=== PATIENT | female | born 1995 | race Caucasian/White ===

== ENCOUNTER 2024-01-04 19:42 | Inpatient (IN) | payer OTHER, SELFPAY ==
--- NOTE | ~2024-01-04 | CT_ITS ---
EXAMINATION: CT head/brain wo IV con CLINICAL INFORMATION: Reason for Exam ?seizure COMPARISON: None. TECHNIQUE: Contiguous axial imaging was performed from the skull base to vertex without intravenous contrast. Sagittal and coronal reformatted images were obtained. This CT examination was performed using dose optimization techniques as appropriate, variously including the following: * Automated exposure control * Adjustment of mA and/or kV according to patient size (this includes techniques or standardized protocols for targeted exams where dose is matched to indication/reason for exam; i.e. extremities or head) Use of iterative reconstruction technique DLP: 585 mGy-cm FINDINGS: No acute osseous or soft tissue abnormality. Right sided craniotomy changes. The mastoid air cells and visualized portions of the paranasal sinuses are well aerated. There is no evidence of acute intracranial hemorrhage or territorial infarction. No abnormal mass effect or midline shift is seen. Florentino to white matter differentiation is well preserved. No extra-axial fluid collections are identified. No hydrocephalus. No significant volume loss. There is no abnormal attenuation within the brain parenchyma. CT/CT head/brain wo IV con IMPRESSION: No acute intracranial abnormality including hemorrhage, mass effect, hydrocephalus, or acute territorial edematous infarction.
--- NOTE | ~2024-01-04 | XR_ITS ---
EXAMINATION: XR CHEST CLINICAL INFORMATION: Seizure COMPARISON: None available. TECHNIQUE: Frontal view of the chest was obtained. FINDINGS: No significant abnormality is noted involving the heart, lungs, mediastinum, bony thorax or soft tissues. Electronic device projecting over the left hemithorax XR/XR chest 1V IMPRESSION: No radiographic evidence of acute cardiopulmonary disease.
--- NOTE | ~2024-01-04 | CT_ITS ---
EXAMINATION: CT head/brain wo IV con CLINICAL INFORMATION: Reason for Exam seizures COMPARISON: CT head without contrast 01/04/2024 TECHNIQUE: Contiguous axial imaging was performed from the skull base to vertex without intravenous contrast. Sagittal and coronal reformatted images were obtained. This CT examination was performed using dose optimization techniques as appropriate, variously including the following: * Automated exposure control * Adjustment of mA and/or kV according to patient size (this includes techniques or standardized protocols for targeted exams where dose is matched to indication/reason for exam; i.e. extremities or head) Use of iterative reconstruction technique DLP: 759.61 mGy-cm FINDINGS: No acute osseous or soft tissue abnormality. Postsurgical changes from right sided craniotomy. The mastoid air cells and visualized portions of the paranasal sinuses are well aerated. There is no evidence of acute intracranial hemorrhage or territorial infarction. No abnormal mass effect or midline shift is seen. Florentino to white matter differentiation is well preserved. No extra-axial fluid collections are identified. No hydrocephalus. No significant volume loss. There is no abnormal attenuation within the brain parenchyma. CT/CT head/brain wo IV con IMPRESSION: No acute intracranial abnormality including hemorrhage, mass effect, hydrocephalus, or acute territorial edematous infarction.
--- NOTE | ~2024-01-04 | XR_ITS ---
EXAMINATION: XR CHEST CLINICAL INFORMATION: Endotracheal tube placement. COMPARISON: Chest radiograph 01/04/2024. TECHNIQUE: Frontal view of the chest was obtained. FINDINGS: The endotracheal tube terminates at 4.3 cm above the sai. Normal heart size. No focal consolidation, pleural effusion or pneumothorax. No acute osseous findings. Visualized upper abdomen is within normal limits. Redemonstration of a neurostimulator device projecting over the left axillary region with leads coursing into the soft tissues of the left neck terminating outside of the field of view. XR/XR chest 1V IMPRESSION: 1. The endotracheal tube terminates at 4.3 cm above the sai. 2. No focal consolidation, pleural effusion or pneumothorax.
--- NOTE | 2024-01-04 20:07 | ED.SEIZURE ---
HPI - Seizure General Chief Complaint: Seizure Stated Complaint: sz lasting 30 mins.1mg ativan given, 2nd sz 35mins Time Seen by Provider: 01/04/24 20:05 Source: EMS Mode of arrival: EMS Limitations: altered mental status History of Present Illness HPI Narrative: 28-year-old female history of cerebral palsy with anoxic brain injury with dense left hemiplegia, bipolar disorder, cystic fibrosis, dystonia, gastrotomy, gastroparesis, personality disorder, opiate dependence, PTSD, conversion disorder with seizures or convulsions, epilepsy, systemic lupus erythematosus, who was sent to the emergency department from her nursing facility, [facility] for on and off seizures since yesterday, lasting 30 minutes each. The patient had a witnessed seizure by the paramedics and was treated with Versed 4 mg IM. Initially when she got to the emergency department she was able to give a history to the nurses but then had a tonic clonic seizure lasting approximately 15 minutes, she was postictal and then had another tonic-clonic seizure that lasted approximately 10 minutes. During the seizures she was initially treated with Versed 4 mg IM and then Versed 4 mg IV. Patient was also loaded with Keppra 1000 mg IV. The patient eventually came back to her baseline was able to tell me that she was hospitalized at [facility] for several weeks. She states that she had status epilepticus and was intubated . She states that she was eventually started on Vimpat and Keppra. She states however she was then told that she did not need these medications and they were stopped your antiepileptic medications. The patient currently complaining of nausea and body pain. She states that this is typical after she has a seizure and that she often gets morphine and promethazine for these symptoms. Related Data Allergies Allergy/AdvReac Type Severity Reaction Status Date / Time aripiprazole Allergy Unknown Unknown Verified 08/24/23 08:56 bee venom protein (honey bee) Allergy Unknown Anaphylaxis Verified 01/04/24 20:00 latex Allergy Unknown Hives Verified 01/04/24 20:00 shellfish derived Allergy Unknown Anaphylaxis Verified 01/04/24 20:00 trimethoprim Allergy Unknown Unknown Verified 08/24/23 08:56 banana Allergy Anaphylaxis Verified 01/04/24 20:00 Sulfa (Sulfonamide Allergy Unknown Verified 01/04/24 20:00 Antibiotics) Review of Systems Review of Systems: Yes all other systems are reviewed and are negative PMFSH Past Medical History Medical History (Updated 01/04/24 @ 22:35 by Reji Dallas MD) Cystic fibrosis SVT (supraventricular tachycardia) Atrial fibrillation POTS (postural orthostatic tachycardia syndrome) Jackie-Danlos syndrome Anemia Lupus Refractory epilepsy Diabetic gastroparesis Physical Exam Vital Signs: Vital Signs: Last Vital Signs Temp 98.4 F 01/04/24 20:13 Pulse 92 01/04/24 20:13 Resp 14 01/04/24 20:13 BP 111/64 01/04/24 20:13 Pulse Ox 94 01/04/24 20:13 O2 Del Method Nasal Cannula 01/04/24 20:13 Oxygen Flow Rate 2 01/04/24 20:13 BMI result Body Mass Index 26.6 Vital signs were normal Exam: After postictal period ended General: Awake, alert answers questions appropriately Head: Normocephalic, atraumatic EENT: Patient's left pupil is 3 mm reactive to light. Right pupil is 3 mm and nonreactive to light, extraocular muscles are intact, mouth revealed moist membranes with no erythema or exudate Neck: Supple, no adenopathy Lung: breath sounds symmetric, no wheezing, rales or rhonchi Chest: symmetric movement, nontender Heart: regular rate and rhythm, normal S1, S2 no murmurs or rubs Abdomen: soft, non-tender, nondistended, normal bowel sounds, G-tube Extremities: Patient has left-sided hemiplegia with contraction of her left lower extremity and her left upper extremity and hand. Neuro: Awake, alert, oriented, normal speech, cranial nerves intact except right pupil was nonreactive and blind, left hemiplegia, moves right normally Psych: Pleasant, cooperative Medications Administered Discontinued Medications Generic Name Dose Route Start Last Admin Trade Name Freq PRN Reason Stop Dose Admin Levetiracetam 1,000 mg in 100 mls @ 400 mls/hr 01/04/24 20:25 01/04/24 20:55 Keppra IV 01/04/24 20:39 Infused ONCE ONE Infusion Midazolam HCl 4 mg 01/04/24 20:06 01/04/24 20:11 Midazolam Hcl/Pf 2 Mg/2 Ml Vial IM 01/04/24 20:07 4 mg ONCE ONE Administration Midazolam HCl 4 mg 01/04/24 20:21 01/04/24 20:24 Midazolam Hcl/Pf 2 Mg/2 Ml Vial IVPUSH 01/04/24 20:22 4 mg ONCE ONE Administration Medical Decision Making Medical Decision Making [facility] Narrative: 28-year-old female history of cerebral palsy with anoxic brain injury with dense left hemiplegia, bipolar disorder, cystic fibrosis, dystonia, gastrotomy, gastroparesis, personality disorder, opiate dependence, PTSD, conversion disorder with seizures or convulsions, epilepsy, systemic lupus erythematosus, who was sent to the emergency department from her nursing facility, [facility] for on and off seizures since yesterday, lasting 30 minutes each. She had a witnessed seizure by the paramedics and was treated with Versed 4 mg IM. Initially when she got to the emergency department she was able to give a history to the nurses but then had a tonic clonic seizure lasting approximately 15 minutes, she was postictal and then had another tonic-clonic seizure that lasted approximately 10 minutes. During the seizures she was initially treated with Versed 4 mg IM and then Versed 4 mg IV. Patient was also loaded with Keppra 1000 mg IV. Exam was consistent with her hemiplegia otherwise unremarkable pain. Differential diagnosis: Tonic clonic seizure, status epilepticus, electrolyte abnormality, anemia 22:24 My interpretation patient's laboratory evaluation is as follows: WBC low 3400, anemia with an H&H of 12.5 and 35.6. Lactic acid elevated 2.2 secondary to seizures. AST and ALT elevated 32 and 53. CK elevated 149-secondary to seizure. COVID-19, RSV and influenza negative. Chest x-ray revealed no acute abnormalities, patient has vagus nerve stimulator left chest. Given her [id number] seizures that lasted a significant amount of time, I do not think that the patient can be discharged back to her care facility. I did discuss patient's presentation with the covering hospitalist, Dr. Eastman the patient will be admitted for further manage Admission/Observation Consideration of admission/observation: Escalation of care including admission/observation considered Consult Healthcare Provider Management of the patient was discussed with: Hospitalist Lab Data [facility] Lab Attestation statement: I reviewed the patient's lab results. 01/04/24 20:24 01/04/24 20:24 Labs: Lab Results 01/04/24 01/04/24 Range/Units 20:24 20:40 WBC 3.4 L (4.8-10.8) X10*3/uL RBC 4.07 L (4.20-5.50) X10*6/uL Hgb 12.5 (12.0-16.0) g/dl Hct 35.6 L (37.0-47.0) % MCV 87.5 (80.0-98.0) fL MCH 30.7 (27.0-33.0) pg MCHC 35.1 H (31.0-35.0) g/dl RDW 11.9 (11.0-16.0) % Plt Count 197 (160-400) X10*3/uL MPV 8.4 L (9.4-12.3) fL Immature Gran % (Auto) 0.0 (0.0-0.4) % Neut % (Auto) 55.3 (45-73) % Lymph % (Auto) 29.4 (20-40) % [place] % (Auto) 12.6 H (2-11) % Eos % (Auto) 2.4 (0-4) % Baso % (Auto) 0.3 (0-2) % Lymph # (Auto) 1.0 L (1.2-4.9) X10*3/uL [place] # (Auto) 0.4 (0.1-1.2) X10*3/uL Eos # (Auto) 0.1 (0.0-0.4) X10*3/uL Baso # (Auto) 0.0 (0.0-0.2) X10*3/uL Abs Immat Gran (auto) 0.00 (0.00-0.03) X10*3/uL Absolute Neuts (auto) 1.9 L (2.0-8.3) x10*3/uL Absolute Nucleated RBC 0.000 (0.0-0.012) X10*3/uL Nucleated RBC % (auto) 0.0 (0.0-0.2) /100WBC Hold Purple Top SEE NOTE APTT 30.5 (26.0-36.8) SEC Sodium 143 (135-145) mmol/L Potassium 4.2 (3.3-5.1) mmol/L Chloride 107 (96-108) mmol/L Carbon Dioxide 25 (22-29) mmol/L Anion Gap 15 (12-20) BUN 13 (9-16) mg/dL Creatinine 0.67 (0.5-1.4) mg/dL Estim Creat Clear Calc 122.3 Estimated GFR > 60 Random Glucose 92 (60-115) mg/dL Lactic Acid 2.2 H* (0.5-2.0) mmol/L Calcium 10.4 H (8.4-10.2) mg/dL Total Bilirubin 0.7 (0.0-1.0) mg/dL AST 32 H (5-31) U/L ALT 53 H (0-31) U/L Alkaline Phosphatase 109 (39-117) U/L Total Creatine Kinase 149 H (26-140) U/L Total Protein 7.8 (6.5-8.0) g/dL Albumin 4.4 (3.5-5.0) g/dL Lipase 28 (8-78) U/L Influenza Type A (PCR) NEGATIVE (Negative) Influenza Type B (PCR) NEGATIVE (Negative) RSV RNA Qual (PCR) NEGATIVE (Negative) SARS-CoV-2 RNA (RT-PCR) NEGATIVE (Negative) Radiology Impression Discussion of test interpretation with radiology: I have reviewed the radiologist's reading. Radiologist Impression: XR chest 1V IMPRESSION: No radiographic evidence of acute cardiopulmonary disease. Dictated By: Noni Orellana MD External Record Review External record reviewed: Outpatient record and Other ([facility] discharge note 01/03/2024) Procedures EJ/Peripheral Line Neck R: Time Out Performed: No Skin Cleansed in Sterile Fashion: Yes Size (gauge): 20 IV Secured and Dressing Applied: Yes Patient Tolerated Procedure: well Critical Care Time Critical Care Time Critical Care Time: Yes Total Critical Care Time: 45 Attestation: Critical Care: The patient was critically ill with a high probability of imminent or life threatening deterioration. I spent greater than 30 minutes of discontinuous time evaluating the patient,delivering critical care at the bedside, discussing and evaluating pertinent data with consultants. Critical care time does not include time spent performing separately billable procedures or teaching. Total time spent performing critical care was 45 minutes. Discharge Plan Discharge Clinical Impression: Epileptic seizure, Intractable seizure disorder
[2024-01-04] MEDS: Midazolam HCl/PF 2 MG/2 ML VIAL 4 MG IM (20:11)
[2024-01-04 20:13] VITALS: BP 111/64; BP 98/60; PULSE 83; PULSE 92; RESP 14; TEMP 36.9; O2SAT 94; O2SAT 99; BMI 26.6
[2024-01-04] MEDS: Midazolam HCl/PF 2 MG/2 ML VIAL 4 MG IVPUSH (20:24)
--- NOTE | 2024-01-04 20:25 | PC.NURSE ---
Pt A&O to self, awake, able to verbalize full name. Last seizure was on EMS arrival, given 4 mg of versed IM. Pt is on 2L via NC at baseline. Pt reports having aura (metallic taste). Pt not answering any questions, arm jerking movements, provider made aware. New orders given per JAN. Pt difficult stick. 20G EJ to R side placed by Dr. Dallas.
[2024-01-04 20:34] LABS: MANUAL DIFF FLAG NO
[2024-01-04 20:35] LABS: Basophils Percent Auto 0.3 % (0-2); Eosinophils Absolute Auto 0.1 X10*3/uL (0.0-0.4); Eosinophils Percent Auto 2.4 % (0-4); Hematocrit 35.6 % (37.0-47.0); Hemoglobin 12.5 g/dl (12.0-16.0); Lymphocytes Percent Auto 29.4 % (20-40); Mean Corpuscular HGB Conc 35.1 g/dl (31.0-35.0); Mean Corpuscular Hemoglobin 30.7 pg (27.0-33.0); Mean Corpuscular Volume 87.5 fL (80.0-98.0); Mean Platelet Volume 8.4 fL (9.4-12.3); Monocytes Absolute Auto 0.4 X10*3/uL (0.1-1.2); Monocytes Percent Auto 12.6 % (2-11); Neutrophils Absolute Auto 1.9 x10*3/uL (2.0-8.3); Neutrophils Percent Auto 55.3 % (45-73); Platelet Count 197 X10*3/uL (160-400); Red Blood Count 4.07 X10*6/uL (4.20-5.50); Red Cell Distribution Width 11.9 % (11.0-16.0); White Blood Count 3.4 X10*3/uL (4.8-10.8)
[2024-01-04] MEDS: levETIRAcetam in NaCl (iso-os) 1,000 MG/100 ML PIGGYBACK 400 MG IV (20:37)
[2024-01-04 20:43] LABS: Partial Thromboplastin Time 30.5 SEC (26.0-36.8)
--- NOTE | 2024-01-04 20:46 | MHC.EDTECH ---
This Tech assumed care of this pt upon arrival. seizure pads placed on stretcher and pt changed into a hospital gown and placed on a air sampling and monitoring.
[2024-01-04 20:49] LABS: Alanine Aminotransferase 53 U/L (0-31); Albumin Level 4.4 g/dL (3.5-5.0); Alkaline Phosphatase 109 U/L (39-117); Anion Gap 15 (12-20); Aspartate Amino Transferase 32 U/L (5-31); Bilirubin Total 0.7 mg/dL (0.0-1.0); Blood Urea Nitrogen 13 mg/dL (9-16); Calcium 10.4 mg/dL (8.4-10.2); Carbon Dioxide 25 mmol/L (22-29); Chloride 107 mmol/L (96-108); Creatinine Clr Calc Pharmacy 122.3; Estimated Glomerular Filt Rate > 60; Glucose Random 92 mg/dL (60-115); Lipase 28 U/L (8-78); Potassium 4.2 mmol/L (3.3-5.1); Sodium 143 mmol/L (135-145); Total Protein 7.8 g/dL (6.5-8.0)
[2024-01-04 20:52] LABS: Lactic Acid 2.2 mmol/L (0.5-2.0)
[2024-01-04 21:21] LABS: Influenza A PCR NEGATIVE (Negative); Influenza B PCR NEGATIVE (Negative); Resp Syncy Virus RNA Qual PCR NEGATIVE (Negative); SARS COV2 PCR INHOUSE NEGATIVE (Negative)
[2024-01-04 22:31] LABS: Reflex Lactate? Lactic Acid Added
[2024-01-04 22:38] VITALS: BP 103/55; PULSE 83; RESP 19; TEMP 36.7; O2SAT 100
--- NOTE | 2024-01-04 22:39 | PHA.MEDREC ---
Pharmacy Consult ? Medication Reconciliation Pharmacy has completed the medication reconciliation. Patient from [facility] with med list. Manuela Morillo, JohnyD
[2024-01-04 22:53] VITALS: RESP 14
[2024-01-04] MEDS: Morphine Sulfate 4 MG/ML CARTRIDGE IVPUSH (22:53)
[2024-01-04 23:15] LABS: ~Lactic Acid-LAB USE ONLY 0.6 mmol/L (0.5-2.0)
--- NOTE | 2024-01-05 | EEG_ITS ---
FINDINGS: The waking background activity consists of a [id number] voltage 8 hertz posterior alpha frequency intermixed anteriorly with low voltage fast frequencies. Drowsiness was characterized with diffuse theta slowing. During sleep, symmetrical frontocentral sleep spindles developed over both hemispheres. Photic stimulation is without activation. Hyperventilation was omitted. No focal, lateralizing, or paroxysmal discharges were seen. IMPRESSION: This awake and sleep EEG is within normal limits. MD DAWNA Fraser/SEUN / [id number]
--- NOTE | 2024-01-05 00:38 | P.HPHOSP_ITS ---
History of Present Illness Date of Service: 01/05/24 Chief Complaint: seizure This is a 28-year-old female with pertinent history of anoxic brain injury with left-sided hemiplegia, mood disorder, dystonia, urinary incontinence, gastroparesis status post G-tube, opiate dependence, seizure disorder, SLE who was sent from nursing facility for evaluation of seizures. As per the facility, patient has been having on and off seizures lasting 30 minutes that started 1 day prior to presentation. Patient had a witnessed seizure by paramedics and was treated with IM Versed. In the ER, patient was initially postictal but had 2 episodes of seizure witnessed by ER nurse and ER physician. First episode lasted for about 15 minutes and the 2nd episode lasted for 10 minutes. She was given IM Versed 4 mg x 2 and loaded with IV Keppra. Patient does not know why she is here. Does have a small tongue bite to the lateral aspect of the tongue. No fall. Patient states she does have a history of seizure and was hospitalized and intubated at [facility] for several weeks. Patient states at some point she was on Vimpat and Keppra but Vimpat was discontinued. No fever, chills, chest discomfort, palpitations, shortness of breath, abdominal pain. She is bed-bound and uses a wheelchair to ambulate. Review of Systems 2 Constitutional: Constitutional: Reports no additional constitutional complaints Cardiovascular: Cardiovascular: Reports no additional cardiovascular complaints Respiratory: Respiratory: Reports no additional respiratory complaints Gastrointestinal: Gastrointestinal: Reports no additional gastrointestinal complaints Genitourinary: Genitourinary: Reports no additional female genitourinary complaints Neurologic: Reports seizure-like activity [facility] Medical History Cystic fibrosis SVT (supraventricular tachycardia) Atrial fibrillation POTS (postural orthostatic tachycardia syndrome) Jackie-Danlos syndrome Anemia Lupus Refractory epilepsy Diabetic gastroparesis Pertinent family history: No family history of early CAD Social History Advance Directives: No Advance Directives Information Provided: No Meds Allergies Allergy/AdvReac Type Severity Reaction Status Date / Time aripiprazole Allergy Unknown Unknown Verified 08/24/23 08:56 bee venom protein (honey bee) Allergy Unknown Anaphylaxis Verified 01/04/24 20:00 latex Allergy Unknown Hives Verified 01/04/24 20:00 shellfish derived Allergy Unknown Anaphylaxis Verified 01/04/24 20:00 trimethoprim Allergy Unknown Unknown Verified 08/24/23 08:56 banana Allergy Anaphylaxis Verified 01/04/24 20:00 Sulfa (Sulfonamide Allergy Unknown Verified 01/04/24 20:00 Antibiotics) Home Medications Medication Instructions Recorded Confirmed Last Taken Type acetaminophen 325 mg tablet 650 mg feeding tube Q6H PRN PAIN 01/04/24 01/04/24 Unknown History OR FEVER albuterol sulfate 2.5 mg/3 mL 2.5 mg inhalation Q6H PRN Wheezing 01/04/24 01/04/24 Unknown History (0.083 %) solution for nebulization aspirin 81 mg chewable tablet 81 mg feeding tube DAILY 01/04/24 01/04/24 Unknown History baclofen 20 mg tablet 20 mg feeding tube QID 01/04/24 01/04/24 Unknown History budesonide 1 mg/2 mL suspension 0.5 mg inhalation BID 01/04/24 01/04/24 Unknown History for nebulization clonazepam 0.5 mg tablet 1 mg feeding tube BID 01/04/24 01/04/24 Unknown History ibuprofen 200 mg tablet 600 mg feeding tube Q8H PRN 01/04/24 01/04/24 Unknown History Moderate Pain (Scale Score 5-6) lansoprazole 30 mg capsule,delayed 30 mg feeding tube DAILY 01/04/24 01/04/24 Unknown History release levetiracetam 100 mg/mL oral 1,000 mg feeding tube BID 01/04/24 01/04/24 Unknown History solution lorazepam 2 mg/mL injection 1 mg IM Q5M PRN Seizures 01/04/24 01/04/24 Unknown History solution morphine 10 mg/5 mL oral solution 10 mg feeding tube Q4H PRN Severe 01/04/24 01/04/24 Unknown History Pain (Scale Score 7-10) promethazine 6.25 mg/5 mL oral 25 mg feeding tube Q6H PRN Nausea 01/04/24 01/04/24 Unknown History syrup And Vomiting sennosides 8.6 mg tablet (senna) 8.6 mg feeding tube DAILY 01/04/24 01/04/24 Unknown History tizanidine 4 mg capsule 8 mg feeding tube TID 01/04/24 01/04/24 Unknown History zinc oxide 15 % topical cream 1 appl topical QSHIFT 01/04/24 01/04/24 Unknown History Physical Exam 2 Vital Signs and Narrative: Vital Signs: Last Vital Signs Temp 98.1 F 01/04/24 22:38 Pulse 83 01/04/24 22:38 Resp 14 01/04/24 22:53 BP 103/55 L 01/04/24 22:38 Pulse Ox 100 01/04/24 22:38 O2 Del Method Nasal Cannula 01/04/24 22:38 O2 Flow Rate 2 01/04/24 22:38 Oxygen Flow Rate 2 01/04/24 20:13 BMI result Body Mass Index 26.6 Young female lying in bed in no distress Neck supple, no JVD Regular rate and rhythm, S1-S2 heard Regular breath sounds bilaterally, no wheezing or crackles appreciated Abdomen soft nontender, no guarding, no rigidity, G-tube in place Patient is awake, alert and oriented to self, place, time and person ; left- sided hemiplegia Psych: Normal mood No pedal edema Results Labs 01/04/24 20:24 01/04/24 20:24 Labs: Laboratory Results - last 24 hr 01/04/24 01/04/24 01/04/24 20:24 20:40 22:58 MCV 87.5 MCH 30.7 MCHC 35.1 H RDW 11.9 Plt Count 197 MPV 8.4 L Immature Gran % (Auto) 0.0 Neut % (Auto) 55.3 Lymph % (Auto) 29.4 [place] % (Auto) 12.6 H Eos % (Auto) 2.4 Baso % (Auto) 0.3 Lymph # (Auto) 1.0 L [place] # (Auto) 0.4 Eos # (Auto) 0.1 Baso # (Auto) 0.0 Abs Immat Gran (auto) 0.00 Absolute Neuts (auto) 1.9 L Absolute Nucleated RBC 0.000 Nucleated RBC % (auto) 0.0 Hold Purple Top SEE NOTE APTT 30.5 Anion Gap 15 Estim Creat Clear Calc 122.3 Estimated GFR > 60 Random Glucose 92 Lactic Acid 2.2 H* Lactic Acid F/U @ 2Hr 0.6 Calcium 10.4 H Total Bilirubin 0.7 AST 32 H ALT 53 H Alkaline Phosphatase 109 Total Creatine Kinase 149 H Total Protein 7.8 Albumin 4.4 Lipase 28 Influenza Type A (PCR) NEGATIVE Influenza Type B (PCR) NEGATIVE RSV RNA Qual (PCR) NEGATIVE SARS-CoV-2 RNA (RT-PCR) NEGATIVE Imaging Radiologist's Impressions: Impressions Chest X-Ray 01/04/24 20:38 IMPRESSION: No radiographic evidence of acute cardiopulmonary disease. Head CT 01/04/24 23:50 IMPRESSION: No acute intracranial abnormality including hemorrhage, mass effect, hydrocephalus, or acute territorial edematous infarction. Assessment and Plan (1) Intractable seizure disorder: Status: Acute Plan This is a 28-year-old female with pertinent history of anoxic brain injury with left-sided hemiplegia, mood disorder, dystonia, urinary incontinence, gastroparesis status post G-tube, opiate dependence, seizure disorder, SLE who was sent from nursing facility for evaluation of seizures. #. Status epilepticus: Loaded with Keppra in the ER. Previously on Vimpat and Keppra but Vimpat was discontinued. Also on clonazepam. Obtaining EEG and consulting Neurology, appreciate assistance. Also has a questionable history of pseudoseizures. #. Anoxic brain injury with left-sided hemiplegia and dystonia: On aspirin, baclofen, tizanidine #. Gastroparesis status post G-tube: Consulting nutrition. Patient is NPO and is on continues tube feedings via G-tube at outside facility. #. Mood disorder: Continue home mood stabilizers #. Urinary incontinence: Patient has urinary retention. Frequent catheterization at outside facility #. Opiate dependence: On morphine DVT prophylaxis: Lovenox DNR/DNI. Discussed with patient at bedside Admit as inpatient and will require two night minimum hospital stay for evaluation and management of status epilepticus in a patient with seizure disorder (as above), which is not possible in a lesser acute setting. Specialist consult pending Quality Stroke Does the patient have a stroke diagnosis?: No VTE Prior VTE?: No VTE Risk Level:: Medical - moderate - high VTE Device Contraindication: Treatment Not Indicated VTE Drug Contraindication: N/A - Med Ordered
[2024-01-05 00:46] LABS: Appearance Urine Clear; Color Urine Yellow; Glucose Urine UA Negative (Negative); Leukocyte Esterase Urine Negative (Negative); Nitrite Urine Negative (Negative); Urine Blood Negative (Negative); Urine Ketones Negative (Negative); Urine Protein Negative (Neg-Trace)
[2024-01-05 00:48] LABS: UPreg QC Valid YES; Urine Pregnancy NEGATIVE (NEGATIVE)
--- NOTE | 2024-01-05 01:06 | PC.NURSE ---
Pt reports hx of urine retention, Pt usually incontinent, Pt bladder scan >[address] Eastman made aware. 16F F/C placed, with 600 mL of clear yellow urine output. Pt tolerated well.
[2024-01-05 01:28] VITALS: RESP 18
[2024-01-05] MEDS: Morphine Sulfate 4 MG/ML CARTRIDGE IVPUSH (01:28)
[2024-01-05] MEDS: Enoxaparin Sodium 40 MG/0.4 ML SYRINGE SUBCUT ×2 (01:35→23:06)
[2024-01-05] MEDS: TiZANidine HCL 4 MG TABLET 8 MG G-TUBE ×4 (02:29→21:53)
[2024-01-05] MEDS: Baclofen 20 MG TABLET G-TUBE ×4 (02:29→21:54)
[2024-01-05] MEDS: clonazePAM 1 MG TABLET G-TUBE ×3 (02:30→21:54)
[2024-01-05 03:00] VITALS: BP 91/43; PULSE 64; RESP 18; O2SAT 100
--- NOTE | 2024-01-05 04:59 | PC.NURSE ---
Addendum entered by Ramona Oh 01/05/24 05:08: Pt has multiple old cutting scars to left arm and scar to neck. Original Note: Pt awake, low speaking voice, able to verbalize , and medical hx. Pt reports generalized all over body pain, Pt medicated per MAR. Right pupil not round or reactive to light, Pt reports this is at baseline. Pt reports she is paralyzed on the left side, with visible contracture to left hand. Pt has J-G tube intact. Skin is intact, yellow bruising noted to right upper arm. Bilateral foot drop noted. Heal foam guard to left foot.
[2024-01-05] MEDS: Morphine Sulfate Oral Sol 10 MG/5 ML SOLUTION G-TUBE ×4 (05:36→21:55)
[2024-01-05 05:38] LABS: Basophils Percent Auto 0.3 % (0-2); Eosinophils Absolute Auto 0.1 X10*3/uL (0.0-0.4); Eosinophils Percent Auto 3.4 % (0-4); Hematocrit 30.4 % (37.0-47.0); Hemoglobin 10.8 g/dl (12.0-16.0); Lymphocytes Absolute Auto 1.4 X10*3/uL (1.2-4.9); Lymphocytes Percent Auto 44.5 % (20-40); MANUAL DIFF FLAG NO; Mean Corpuscular HGB Conc 35.5 g/dl (31.0-35.0); Mean Corpuscular Hemoglobin 31.1 pg (27.0-33.0); Mean Corpuscular Volume 87.6 fL (80.0-98.0); Mean Platelet Volume 8.8 fL (9.4-12.3); Monocytes Absolute Auto 0.3 X10*3/uL (0.1-1.2); Neutrophils Absolute Auto 1.3 x10*3/uL (2.0-8.3); Neutrophils Percent Auto 41.8 % (45-73); Platelet Count 209 X10*3/uL (160-400); Red Blood Count 3.47 X10*6/uL (4.20-5.50); White Blood Count 3.2 X10*3/uL (4.8-10.8)
[2024-01-05 06:01] LABS: Anion Gap 15 (12-20); Blood Urea Nitrogen 14 mg/dL (9-16); Calcium 9.7 mg/dL (8.4-10.2); Carbon Dioxide 23 mmol/L (22-29); Chloride 106 mmol/L (96-108); Creatinine Clr Calc Pharmacy 124.1; Estimated Glomerular Filt Rate > 60; Glucose Random 80 mg/dL (60-115); Sodium 140 mmol/L (135-145)
[2024-01-05 06:25] VITALS: BP 94/46; PULSE 59; RESP 14; TEMP 36.4; O2SAT 100
[2024-01-05 08:11] VITALS: BP 95/48; PULSE 60; RESP 17; O2SAT 100
--- NOTE | 2024-01-05 09:36 | P.CNNE_ITS ---
History of Present Illness Data of Consult Service Date: 01/05/24 Primary Care Provider: Unknown Physician HPI Reason for consult: Seizures This is a 28-year-old female with history of cystic fibrosis, anoxic brain injury with left-sided hemiplegia, mood disorder, dystonia, urinary incontinence, gastroparesis status post G-tube, opiate dependence, seizure disorder, SLE who was sent from nursing facility for evaluation of seizures. As per the facility, patient has been having on and off seizures lasting 30 minutes that started 1 day prior to presentation. Patient had a witnessed seizure by paramedics and was treated with IM Versed. In the ER, patient was initially postictal but had 2 episodes of seizure witnessed by ER nurse and ER physician. First episode lasted for about 15 minutes and the 2nd episode lasted for 10 minutes. She was given IM Versed 4 mg x 2 and loaded with IV Keppra. Patient does not know why she is here. Does have a small tongue bite to the lateral aspect of the tongue. No fall. Patient states she does have a history of seizure and was hospitalized and intubated at [facility] for several weeks. Patient states at some point she was on Vimpat and Keppra but Vimpat was discontinued, and she was discharged on Keppra 2gm bid. No fever, chills, chest discomfort, palpitations, shortness of breath, abdominal pain. She is bed-bound and uses a wheelchair to ambulate. She says that in the past she has been on Lamotrigine and Depakote without great Sz control. She has a VNS stimulator and was seeing a neurologist in [place]. She says that Phenobarb helped her in the past. Her EEG today is surprisingly normal both in awake and sleep states. Should get records from [facility] recent hospitalization to see if they thought she had pseudoSz. Review of Systems 2 Review of Systems: Yes all other systems are reviewed and are negative Constitutional: Constitutional: Reports no additional constitutional complaints Cardiovascular: Cardiovascular: Reports no additional cardiovascular complaints Respiratory: Respiratory: Reports no additional respiratory complaints Gastrointestinal: Gastrointestinal: Reports no additional gastrointestinal complaints Neurologic: Reports seizure-like activity [facility] Past Medical History Medical History Cystic fibrosis SVT (supraventricular tachycardia) Atrial fibrillation POTS (postural orthostatic tachycardia syndrome) Jackie-Danlos syndrome Anemia Lupus Refractory epilepsy Diabetic gastroparesis Family History Pertinent family history: No family history of early CAD Social History Social History Alcohol intake: never Patient Tobacco Use Status: Never used Tobacco Smoked in Last 30 Days: No Use of substances other than those prescribed or required for medical reasons: No Advance Directives: No Advance Directives Information Provided: No Nutrition Risks: No Nutritional Risk Patient : No Meds Allergies Allergy/AdvReac Type Severity Reaction Status Date / Time aripiprazole Allergy Unknown Unknown Verified 08/24/23 08:56 bee venom protein (honey bee) Allergy Unknown Anaphylaxis Verified 01/04/24 20:00 latex Allergy Unknown Hives Verified 01/04/24 20:00 shellfish derived Allergy Unknown Anaphylaxis Verified 01/04/24 20:00 trimethoprim Allergy Unknown Unknown Verified 08/24/23 08:56 banana Allergy Anaphylaxis Verified 01/04/24 20:00 Sulfa (Sulfonamide Allergy Unknown Verified 01/04/24 20:00 Antibiotics) Active Medications: Current Medications Acetaminophen (Acetaminophen Supp 650 Mg Supp.Rect) 650 mg WA Q6H PRN PRN Reason: Pain, Mild (Pain Scale 1-3) Acetaminophen (Acetaminophen 325 Mg Tablet) 650 mg G-TUBE Q6H PRN PRN Reason: PAIN OR FEVER Aspirin (Aspirin 81 Mg Tab.Chew) 81 mg G-TUBE DAILY [facility] Baclofen (Baclofen 20 Mg Tablet) 20 mg G-TUBE QID [facility] Last Admin: 01/05/24 02:29 Dose: 20 mg Budesonide (Budesonide 0.5 Mg/2 Ml Ampul.Neb) 0.5 mg INHALE BID [facility] Clonazepam (Clonazepam 1 Mg Tablet) 1 mg G-TUBE BID [facility] Last Admin: 01/05/24 02:30 Dose: 1 mg Enoxaparin Sodium (Enoxaparin Sodium 40 Mg/0.4 Ml Syringe) 40 mg SUBCUT Q24H [facility] Last Admin: 01/05/24 01:35 Dose: 40 mg Ibuprofen (Ibuprofen 600 Mg Tablet) 600 mg G-TUBE Q8H PRN PRN Reason: Moderate Pain (Scale Score 5-6) Levetiracetam (Levetiracetam Oral Soln 500 Mg/5 Ml) 1,000 mg G-TUBE BID ZAMZAM Lorazepam (Lorazepam 2 Mg/Ml Vial) 1 mg IM Q5M PRN PRN Reason: Seizures Melatonin (Melatonin 3 Mg Tablet) 6 mg PO BEDTIME PRN PRN Reason: Insomnia Morphine Sulfate (Morphine Sulfate Oral Maye 10 Mg/5 Ml Solution) 10 mg G-TUBE Q4H PRN PRN Reason: Severe Pain (Scale Score 7-10) Last Admin: 01/05/24 05:36 Dose: 10 mg Non-Formulary Medication (Lansoprazole) 30 mg feeding tube DAILY [facility] Non-Formulary Medication (Promethazine) 25 mg feeding tube Q6H PRN PRN Reason: Nausea And Vomiting Non-Formulary Medication (Zinc Oxide) 1 appl [facility] Ondansetron HCl (Ondansetron Hcl 4 Mg/2 Ml Vial) 4 mg IVPUSH Q8H PRN PRN Reason: Nausea and Vomiting Senna (Sennosides 8.6 Mg Tablet) 8.6 mg G-TUBE DAILY [facility] Sodium Chloride (0.9 % Sodium Chloride Flush 3 Ml Syringe) 3 ml IVFLUSH [facility] Last Admin: 01/05/24 08:51 Dose: Not Given Tizanidine HCl (Tizanidine Hcl 4 Mg Tablet) 8 mg G-TUBE TID [facility] Last Admin: 01/05/24 02:29 Dose: 8 mg Home Medications Medication Instructions Recorded Confirmed Last Taken Type acetaminophen 325 mg tablet 650 mg feeding tube Q6H PRN PAIN 01/04/24 01/04/24 Unknown History OR FEVER albuterol sulfate 2.5 mg/3 mL 2.5 mg inhalation Q6H PRN Wheezing 01/04/24 01/04/24 Unknown History (0.083 %) solution for nebulization aspirin 81 mg chewable tablet 81 mg feeding tube DAILY 01/04/24 01/04/24 Unknown History baclofen 20 mg tablet 20 mg feeding tube QID 01/04/24 01/04/24 Unknown History budesonide 1 mg/2 mL suspension 0.5 mg inhalation BID 01/04/24 01/04/24 Unknown History for nebulization clonazepam 0.5 mg tablet 1 mg feeding tube BID 01/04/24 01/04/24 Unknown History ibuprofen 200 mg tablet 600 mg feeding tube Q8H PRN 01/04/24 01/04/24 Unknown History Moderate Pain (Scale Score 5-6) lansoprazole 30 mg capsule,delayed 30 mg feeding tube DAILY 01/04/24 01/04/24 Unknown History release levetiracetam 100 mg/mL oral 1,000 mg feeding tube BID 01/04/24 01/04/24 Unknown History solution lorazepam 2 mg/mL injection 1 mg IM Q5M PRN Seizures 01/04/24 01/04/24 Unknown History solution morphine 10 mg/5 mL oral solution 10 mg feeding tube Q4H PRN Severe 01/04/24 01/04/24 Unknown History Pain (Scale Score 7-10) promethazine 6.25 mg/5 mL oral 25 mg feeding tube Q6H PRN Nausea 01/04/24 01/04/24 Unknown History syrup And Vomiting sennosides 8.6 mg tablet (senna) 8.6 mg feeding tube DAILY 01/04/24 01/04/24 Unknown History tizanidine 4 mg capsule 8 mg feeding tube TID 01/04/24 01/04/24 Unknown History zinc oxide 15 % topical cream 1 appl topical QSHIFT 01/04/24 01/04/24 Unknown History Physical Exam 2 Vital Signs: Vital Signs: Last Vital Signs Temp 97.5 F 01/05/24 06:25 Pulse 60 01/05/24 08:11 Resp 17 01/05/24 08:11 BP 95/48 L 01/05/24 08:11 Pulse Ox 100 01/05/24 08:11 O2 Del Method Nasal Cannula 01/05/24 08:11 O2 Flow Rate 2 01/05/24 08:11 Oxygen Flow Rate 2 01/04/24 20:13 BMI result Body Mass Index 26.6 Neuro: Other: Alert, oriented and able to give Hx. left hemiplegia Results Labs 01/05/24 05:31 01/05/24 05:31 Labs: Short CBC 01/04/24 01/05/24 Range/Units 20:24 05:31 WBC 3.4 L 3.2 L (4.8-10.8) X10*3/uL Hgb 12.5 10.8 L (12.0-16.0) g/dl Hct 35.6 L 30.4 L (37.0-47.0) % Plt Count 197 209 (160-400) X10*3/uL BMP 01/04/24 01/05/24 20:24 05:31 Sodium 143 140 Potassium 4.2 4.0 Chloride 107 106 Carbon Dioxide 25 23 BUN 13 14 Creatinine 0.67 0.66 Calcium 10.4 H 9.7 D Cardiac Enzymes 01/04/24 Range/Units 20:24 Total Creatine Kinase 149 H (26-140) U/L Liver Function 01/04/24 Range/Units 20:24 Total Bilirubin 0.7 (0.0-1.0) mg/dL AST 32 H (5-31) U/L ALT 53 H (0-31) U/L Alkaline Phosphatase 109 (39-117) U/L Albumin 4.4 (3.5-5.0) g/dL Urine 01/05/24 Range/Units 00:38 Urine Color Yellow Urine Appearance Clear Urine pH 7.0 (5.0-9.0) Ur Specific [place] 1.010 (1.005-1.025) Urine Protein Negative (Neg-Trace) mg/dL Urine Glucose (UA) Negative (Negative) mg/dL Assessment and Plan (1) Intractable seizure disorder: Status: Acute EEG is normal surprisingly. Please obtain records from recent hospitalization at [facility] [place] for status epilepticus and see if her EEG monitoring was positive for Sz. Continue keppra 2000mg bid. Add Phenobarb 100mg hs ( as patient thought that worked best for her Sz). OP f/u with her neurologist at [facility] [place] Plan This is a 28-year-old female with pertinent history of anoxic brain injury with left-sided hemiplegia, mood disorder, dystonia, urinary incontinence, gastroparesis status post G-tube, opiate dependence, seizure disorder, SLE who was sent from nursing facility for evaluation of seizures. #. Status epilepticus: Loaded with Keppra in the ER. Previously on Vimpat and Keppra but Vimpat was discontinued. Also on clonazepam. Obtaining EEG and consulting Neurology, appreciate assistance. Also has a questionable history of pseudoseizures. #. Anoxic brain injury with left-sided hemiplegia and dystonia: On aspirin, baclofen, tizanidine #. Gastroparesis status post G-tube: Consulting nutrition. Patient is NPO and is on continues tube feedings via G-tube at outside facility. #. Mood disorder: Continue home mood stabilizers #. Urinary incontinence: Patient has urinary retention. Frequent catheterization at outside facility #. Opiate dependence: On morphine DVT prophylaxis: Lovenox DNR/DNI. Discussed with patient at bedside Admit as inpatient and will require two night minimum hospital stay for evaluation and management of status epilepticus in a patient with seizure disorder (as above), which is not possible in a lesser acute setting. Specialist consult pending Procedures Date of Service Date of Service: 01/05/24
--- NOTE | 2024-01-05 09:54 | PC.NURSE ---
pt in EEG.
--- NOTE | 2024-01-05 11:40 | MHC.CLN ---
NUTRITION CONSULT FOR TUBE FEEDING. COMMUNICATED WITH NURSE AT [facility]. AT FACILITY: TUBE FEEDING VIA J TUBE; VITAL 1.0 AT 75 ML PER HOUR; FLUSH 75 ML Q 6 HOURS. RECOMMEND VITAL 1.5 AT MAX GOAL RATE 50 ML PER HOUR AND FREE WATER FLUSHES 240 ML Q 6 HOURS. PROVIDES 1800 KCALS (30.8 KCALS/KG CMW); 81 G PROTEIN (1.38 G/KG CMW); 1877 ML FREE WATER FROM FORMULA AND FLUSH (32.1 ML/KG CMW). START FORMULA AT 20 ML PER HOUR, INCREASE BY 10 ML/HOUR EVERY 4 HOURS TO MAX GOAL RATE OF 50 ML/HOUR. DO NOT CHECK RESIDUALS SINCE J TUBE FEEDING. COMPLETE NUTRITIONAL ASSESSMENT UPON ADMISSION.
[2024-01-05] MEDS: Aspirin 81 MG TAB.CHEW G-TUBE (11:52)
[2024-01-05] MEDS: Sennosides 8.6 MG TABLET G-TUBE (11:52)
[2024-01-05] MEDS: levETIRAcetam Oral Soln 500 MG/5 ML 1000 MG G-TUBE (11:53)
[2024-01-05 12:27] LABS: Glucose, Whole Blood 101 mg/dL (60-115)
[2024-01-05 16:03] VITALS: BMI 26.6
[2024-01-05] MEDS: LORazepam 2 MG/ML VIAL 1 MG IM (17:14)
[2024-01-05] MEDS: Midazolam HCl/PF 2 MG/2 ML VIAL IM (17:15)
[2024-01-05] MEDS: Midazolam HCl/PF 2 MG/2 ML VIAL IVPUSH (17:30)
--- NOTE | 2024-01-05 17:30 | PC.NURSE ---
at 1712, pt started having seizure. sergei advised to give 1mg of prn ativan. sergei also ordered 2mg versed to be givens stat. seizure stopped at [address] gonzalez notified and came down to see pt. pt started seizing again. ordered another 2mg of versed and administered stat. 2nd seizure lasted ~5 minutes, has since stopped. pt now appears to be in postictal state devonte, sweaty and warm to touch. no longer responding to verbal stimuli but in a gaze with rr even/unlabored at 18RR. pt desated into low 90s during seizures but with bad pleth due to shaking movements. pt now sating 100% on 3L O2 via NC.
--- NOTE | 2024-01-05 17:38 | P.EN_ITS ---
Event Note Date of Service: 01/05/24 Event Note: Patient admitted this morning with breakthrough seizure on keppra, was seizure free most of the day then in the evening had at least 2 seizure, last one I witnessed lasting nearly 5 minutes with what appear to be post ictal state, alert but drowsy. EEG earlier was negative, was given versed 2 mg x 2 during last seizure, Neuro has seen and recommends adding phenobarbital 100 at hs in addition to keppra 2000 bid, since having more frequent seizure will give Phen obarb IV now and continue Keppra as usual and if she continues to have seizures, she may need to go to ICU for status epilepticus. She was hemodynamically stable during the episodes and maintained O2 sat. I was at bedside with RN Time Spent With Patient Time: Total time managing care of this patient today ____ minutes.
[2024-01-05] MEDS: PHENobarbitaL sodium 130 MG/ML VIAL 100 MG IVPUSH (17:43)
[2024-01-05 19:08] VITALS: BP 92/51; PULSE 62; RESP 15; TEMP 36.2; O2SAT 100
[2024-01-05 19:32] VITALS: BMI 26.6
[2024-01-05] MEDS: levETIRAcetam Oral Soln 500 MG/5 ML 2000 MG G-TUBE (21:53)
[2024-01-05] MEDS: 0.9 % Sodium Chloride Flush 3 ML SYRINGE IVFLUSH (21:55)
[2024-01-06] VITALS (18 sets, daily range): BP systolic 88–125; BP diastolic 48–69; PULSE 57–123; RESP 12–20; TEMP 35.2–37.2; O2SAT 98–100
[2024-01-06] MEDS: Morphine Sulfate Oral Sol 10 MG/5 ML SOLUTION G-TUBE ×4 (02:11→14:12)
[2024-01-06] MEDS: levETIRAcetam Oral Soln 500 MG/5 ML 2000 MG G-TUBE ×2 (08:35→22:03)
[2024-01-06] MEDS: Sennosides 8.6 MG TABLET G-TUBE (08:35)
[2024-01-06] MEDS: Baclofen 20 MG TABLET G-TUBE ×4 (08:35→22:04)
[2024-01-06] MEDS: Aspirin 81 MG TAB.CHEW G-TUBE (08:36)
[2024-01-06] MEDS: clonazePAM 1 MG TABLET G-TUBE ×2 (08:36→22:04)
[2024-01-06] MEDS: TiZANidine HCL 4 MG TABLET 8 MG G-TUBE ×2 (08:36→14:11)
[2024-01-06] MEDS: Budesonide 0.5 MG/2 ML AMPUL.NEB INHALE (09:10)
[2024-01-06] MEDS: 0.9 % Sodium Chloride Flush 3 ML SYRINGE IVFLUSH ×2 (10:27→22:24)
--- NOTE | 2024-01-06 10:36 | PM.DS ---
DS: Providers Provider Date of Service: 01/06/24 Date of admission: 01/05/24 00:37 Primary care physician: Unknown Physician Consults: 01/05/24 00:38 Consult to Neurology Routine Consulting Provider: [facility] [place] [facility] Reason for consultation: seizure DS: Diagnosis Discharge Diagnosis (1) Intractable seizure disorder: Status: Acute DS: Summary Hospital Course Hospital Course: HPI on admission: Chief Complaint: seizure This is a 28-year-old female with pertinent history of anoxic brain injury with left-sided hemiplegia, mood disorder, dystonia, urinary incontinence, gastroparesis status post G-tube, opiate dependence, seizure disorder, SLE who was sent from nursing facility for evaluation of seizures. As per the facility, patient has been having on and off seizures lasting 30 minutes that started 1 day prior to presentation. Patient had a witnessed seizure by paramedics and was treated with IM Versed. In the ER, patient was initially postictal but had 2 episodes of seizure witnessed by ER nurse and ER physician. First episode lasted for about 15 minutes and the 2nd episode lasted for 10 minutes. She was given IM Versed 4 mg x 2 and loaded with IV Keppra. Patient does not know why she is here. Does have a small tongue bite to the lateral aspect of the tongue. No fall. Patient states she does have a history of seizure and was hospitalized and intubated at [facility] for several weeks. Patient states at some point she was on Vimpat and Keppra but Vimpat was discontinued. No fever, chills, chest discomfort, palpitations, shortness of breath, abdominal pain. She is bed-bound and uses a wheelchair to ambulate. Hospital course: 28yo female with self-reported history of TBI/anoxic brain injury + L hemiplegia + intractable seizure disorder + other diagnoses as listed above in HPI on admission with complicated extensive history of psychiatric and medical hospital admissions across the state admitted for management of supposed breakthrough seizures. Pt initially admitted to hospitalist service after stabilization in the ED. However, began experiencing what appeared to be breakthrough tonic-clonic seizures (convulsions, rigidity of all extremities, dilated pupils) despite increased dosing of keppra to 2000mg BID and addition of phenobarbital. Seizures treated with IV versed with subsequent supposed post-ictal state where patient was somewhat alert but disoriented. Unfortunately, convulsions continued and patient was transferred to ICU out of concern for status epilepticus and intubated for airway protection on 01/06. Had EEG performed which was negative and was followed closely by neurology and trimming department blocker. Vimpat discontinued and dilantin added. Continued treatment with benzodiazepines. Records were obtained and reviewed from [facility] where patient was monitored on continuous vEEG in neuro ICU with seizure-like activity but no demonstrated electrical activity consistent with epileptic seizures raising concern for pseudoseizures but was still discharged from [facility] on keppra and vimpat. Propofol was weaned and patient became more alert and agitated with recurrence of more focal, right sided seizure acitivity without facial involvement. Rather than benzos, was treated with depakote, became more alert and lucid, gesturing/writing she desired to be extubated and was easily and successfully extubated on 01/07. The first thing patient said upon extubation was that she wanted her morphine. After extubation, patient stated that she wished to sign a DNR/DNI order and capacity assessment was requested and per initial psychiatry evaluation, patient was found to have capacity and was code status changed to DNR/DNI. She was downgraded to medical floor where patient again began to experience seizure like activity. Given concern for epileptic seizure activity given rigidity, unresponsiveness, pupil dilation, urinary incontinence, absent corneal reflex, treated with lorazepam and versed. Seizure like activity became less frequent when advised she would not be given a diet order out of concern for aspiration. Discussion had with neurology recommending discontinuation of all anti-epileptic medications, benzodiazepines, and narcotics given lack of any objective clinical evidence to support multiple medical diagnoses including epilepsy, cystic fibrosis, SLE, among other. Patient became quite agitated upon learning this and threatened leaving AMA, attempting to get out of bed despite hemiplegia. Ultimately, patient was advised that leaving AMA at that time would render her homeless in cold weather and she uttered a witnessed suicidal statement about freezing to in one night and was placed on section 12. Ultimately evaluated by care team and found to not be actively suicidal with reversal of section 12 and deemed to not require inpatient psychiatric care. Clonazepam was discontinued as was baclofen. Depakote, dilantin, and keppra all discontinued. Lorazepam decreased to TID and should continue to be tapered in outpatient setting per outpatient psychiatry recommendation. She was continued on morphine on prn basis given longevity of treatment. Tube feeds were continued and RESIDENTIAL SALES CONSULTANT evaluation advised she could continue with NDDM3 diet in addition. With thre removal of these agents, patient's level of alertness and lucidity improved significantly and interestingly patient did not experience any further seizure-like activity (even those suspicious for PNES) following discontinuation of these medications. Extensive review of records from [facility] and [facility] (and associated facilities) revealed multiple EEG's negative for any objective evidence of epileptic seizure activity. Neurology consults are reviewed citing prior history of possible epilepsy, again based on subjective information provided by patient, without any concrete evidence of the disorder. Questions were made by providers in other hospital records about the existence of diagnoses such as SLE or cystic fibrosis without any concrete imaging, lab data, prior medication trials, or specialist consults to substantiate the patient's claims. Upon further discussion with the patient's father (who is Healthcare Proxy per [facility] records), which he requested not be shared with the patient herself as he was concerned his information would result in her withdrawing him from any involvement in her care, the patient has history of dissociative identity disorder, as well as multiple psychiatric diagnoses since she was a child. He also reports patient does not have history of traumatic brain injury, no craniotomy, cystic fibrosis or seizures. States patient was under her mother's care until she was 20 years old, and has been admitted to multiple facilities throughout [place] making up diagnoses , the patient no longer wants relationship with mother due to her not believing her diagnoses . Upon review of [facility] and [facility] charts, as previously stated, there is no EEG evidence of seizure acitvity though patient had been continued on seizure medications by other facilities. Regarding TBI/hemiplegia, there is definite history of TBI and there are former notes referencing movement in the LUE and LLE in the past in [facility] records. 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 On 01/10, psychiatry was again consulted and ultimately has been deemed to NOT have capacity based on significant impairment of insight, diagnosing factitious disorder. Per psychiatry: Patient is presenting with factitious medical information (such as initial reassurance to medical team of confirmation of diagnosis at other medical facilities) and fabrication of physical symptoms), affecting her understanding of current medical presentation. Her behavior does NOT appear to have secondary gains (financial nor medication seeking) either to be considered malingering presentation. Given the information above, Ms. 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 Recommendations for treatment per psychiatry stress the importance of a systematic approach [which] needs to be deployed to reduce harm in the form of unnecessary, potentially harmful medical interventions, by maintaining coordination of care with different hospitals and if possible care plan that can be shared with all providers involved in her care. Ideally, she should have consistent team of providers that maintain accurate medical record. Please see full psychiatry consult from 01/10. Patient will be discharged back to [facility] for further management. Based on psychiatry recommendations and patient's inability to demonstrate good insight and judgement, assignment of guardian by outpatient team may need to be considered to ensure patient's safety. #PNES -no eeg evidence or neurology noted found on review of [facility] and [facility] records dating to 2015 providing concrete evidence of epileptic seizure disorder -Per neuro depakote, keppra, phenytoin dc'd. Clonazepam dc'd. Continue tapering lorazepam -no recurrent seizures after patient advised of no eeg evidence of seizures and anti-epileptic seizure medications discontinued #dissociative identity disorder/factitious disorder -Per father -has multiple pt reports of unsubstantiated medical diagnoses including CF, SLE, epilepsy. Has g tube in place due to gastroparesis. Has spinal neurostimulator in place due to chronic left sided pain/hemiplegia following R craniotomy in 2007. On review of multiple hospital records, there is no objective evidence of these diagnoses available for review dating back to 2015 -Per psychiatry reevaluation 01/10, patient does not have capacity to make medical decisions based on significant impairment of insight. See consult. Code status should be changed back to Full code. #SI statement -briefly placed on section 12a due to witnessed vague SI statement. Evaluted by care team, not felt to require inpt psychiatric level of care #L hemiplegia/chronic left sided pain - Per pt report, R craniotomy 2007 following subdural hematoma. Per [facility] pt did have movement of LUE + LLE in past; continue tizanidine, dc baclofen per neurology -continue morphine for now, would recommend tapering -has spinal cord stimulator in place, but no remote. unable to obtain MRI #FEN - Per pt report, had gatroparesiss/p PEG tube placement. Continue PEG tube feeds, now at goal. Per RESIDENTIAL SALES CONSULTANT, can have NDDM3 given has tolerated previously Time Attestation Discharge coordination time: Greater than 30 minutes Quality: Safe Use of Opioids Does Pt have an Active Cancer Diagnosis on the Problem List?: No Quality: Stroke Does the patient have a stroke diagnosis?: No Physical Exam Vital Signs: Vital Signs: Selected Entries 01/11/24 07:36 Temperature 96.8 F Pulse Rate 80 Respiratory Rate 16 Blood Pressure 129/73 Pulse Oximetry 97 Oxygen Delivery Me thod Room Air General: AO X 3, no acute distress Resp: CTA bilateral CVS: S1,S2,RRR GI: +BS, NT, no distention Skin: No rash Neuro: motor grossly intact Psych: appropriate affect DS: Data Data Completed and Pending Labs on day of discharge: Laboratory Results - last 24 hr 01/05/24 12:23 POC Glucose 101 Discharge Plan Discharge Anticipated Discharge Date/Time: 01/11/24 09:22 Patient Disposition: er [facility] Discharge Diagnosis: Breakthrough seizures Referrals: [facility] [Outside] Physician,Unknown J [Physician] - 1 Week Discharge Medications: Continued sennosides [senna] 8.6 mg Tablet 8.6 mg feeding tube DAILY acetaminophen 325 mg Tablet 650 mg feeding tube Q6H PRN (Reason: PAIN OR FEVER) albuterol sulfate 2.5 mg /3 mL (0.083 %) Solution For Nebulization 2.5 mg INHALATION Q6H PRN (Reason: Wheezing) promethazine 6.25 mg/5 mL Syrup 25 mg feeding tube Q6H PRN (Reason: Nausea And Vomiting) clonazepam 0.5 mg Tablet 1 mg feeding tube BID baclofen 20 mg Tablet 20 mg feeding tube QID lansoprazole 30 mg Capsule,Delayed Release(Dr/Ec) 30 mg feeding tube DAILY ibuprofen 200 mg Tablet 600 mg feeding tube Q8H PRN (Reason: Moderate Pain (Scale Score 5-6)) morphine 10 mg/5 mL Solution 10 mg feeding tube Q4H PRN (Reason: Severe Pain (Scale Score 7-10)) aspirin 81 mg Tablet,Chewable 81 mg feeding tube DAILY tizanidine 4 mg Capsule 8 mg feeding tube TID budesonide 1 mg/2 mL Suspension For Nebulization 0.5 mg INHALATION BID zinc oxide 15 % Cream 1 appl TOPICAL QSHIFT Rx Instructions: APPLY TO J TUBE SITE Discontinued lorazepam 2 mg/mL Solution 1 mg IM Q5M PRN (Reason: Seizures) Rx Instructions: SEIZURE GREATER THAN 5 MINUTES levetiracetam 100 mg/mL Solution 1,000 mg feeding tube BID Discharge Orders: Discharge Order (Routine); Ordered 01/11/24 Ordered By: Gagandeep Durbin Diet: tube feed Activity on Discharge: As tolerated Stand Alone Forms: Patient Portal Discharge page Care Plan Goals: seizure precaution Health Concerns: Recurrent seizure for non epiletptic seizure Plan of Treatment: seizure medication have been discontinued on neurologist advise Assessment: See above
[2024-01-06 14:23] LABS: Glucose, Whole Blood 93 mg/dL (60-115)
--- NOTE | 2024-01-06 14:30 | MHC.CM.PN ---
PT REPORTS SHE IS [facility] SHE SAYS SHE HAS BEEN THERE ABOUT TWO DAYS PT REPORTS SHE DOES HAVE A HCP, HOWEVER IT IS NOT INVOKED [facility] CONFIRMS THIS IS ACCURATE COPY OF PTS HCP WAS REQUESTED FROM THE SNF PCP: JASSI LEON DCP: RETURN TO [facility] VIA BLS
[2024-01-06] MEDS: LORazepam 2 MG/ML VIAL IVPUSH (15:26)
[2024-01-06] MEDS: Midazolam HCl/PF 2 MG/2 ML VIAL IVPUSH ×2 (15:36→16:00)
[2024-01-06] MEDS: Phenytoin Sodium 500 MG in 0.9 % Sodium Chloride 100 ML 100 MG IV ×3 (15:41→17:40)
[2024-01-06] MEDS: propofoL 200 MG/20 ML VIAL 80 MG IVPUSH (16:30)
[2024-01-06] MEDS: propofoL 200 MG/20 ML VIAL 20 MG IVPUSH (16:30)
--- NOTE | 2024-01-06 16:36 | PM.EVENT ---
Event Note Date of Service: 01/06/24 Event Note: While awaiting discharge, CARPENTER MOLD was called for what appeared to be a tonic-clonic seizure, decreased O2, and was given multiple doses of benzos: IV Ativan 1 mg x 2, IV Versed 2 mg x 2, and briefly stopped. I spoke to the neurologist with a recommendation for an IV Dilantin load of 1 gram. She continued to have a protracted seizure and was given additional Versed 5 mg x 2. ICU was notified. I attempted to call her personal computer network analyst, but the number listed is not operational. The patient has been listed as DNR/DNI here and also per records from [facility]. There is an order from [facility] stating that she's DNR/DNI but no MOLST form. I discussed with the [facility] director, and the code status could not be ascertained. During a brief episode of lucidity and seizure pause, she expressed interest to be full code saying save me , and therefore her status changed to full code. Thus, given status epilepticus and [id number] seizures on the floor, she is being transferred to the ICU for better sedation and a high likelihood of mechanical ventilation. Time Spent With Patient Time: Total time managing care of this patient today ____ minutes.
[2024-01-06] MEDS: propofoL 1,000 MG/100 ML VIAL 12.64 MG IVCONT (16:45)
--- NOTE | 2024-01-06 17:20 | PC.NURSE ---
1418 pt witnessed by this nurse seizing. RR called. 1420 1mg/mg ativan given. Hr 130 POC 93. 5L NC 90%. 1420 1mg iv ativan given. Pt placed side w intermintent suctioning. 1423 unable to obtain vital- hr 130 on tele. 1432 2mg versed given. Seizure stopped @ 1434. 1436 seizure started again. 1437 2mg iv versed given. 1438- hr 122, 15, 107/76. 5 liter o2. 1438 seizure stopped. 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 2ND PRINTING PRESS OPERATOR called @ 1444 d/t seizure. 1448 2.5mg versed given. pulse 120- 100% non rebreather. pt suctioned. 1455 5mg versed given. Seizure stopped. 1459 500 mg phenytoin/100ml ns given over 10 min. 115/66, 113, 100 on non rebreahter. Second bag of phenytoin 500mg given @ 1510. Pt transfer to ICU. Report given to reggie in icu.
[2024-01-06] MEDS: LORazepam 1 MG TABLET PO ×2 (17:46→22:25)
[2024-01-06] MEDS: Norepinephrine Bitartrate/D5W 8 MG/250 ML PLAST..BAG 6.58 MG IV (18:17)
--- NOTE | 2024-01-06 18:29 | P.CONCC_ITS ---
History of Present Illness Data of Consult Service Date: 01/06/24 Requesting physician: [facility] Primary Care Provider: DO GREG Nunez Reason for consult: Status epilepticus 28[facility]year-old [facility] recent onset of seizure exacerbation breakthrough is requiring intubation at [facility] ultimately on Keppra 2 g b.i.d. taken off Vimpat here she broke through was given multiple doses of benzodiazepines ultimately loaded with 1 g of Dilantin continue to break through and remained in status epilepticus would respond to high-dose Versed very briefly ultimately we gave 40 mg of propofol it relaxed everything but during the episode clearly this was a generalized seizure no consciousness diffusely rigid all 4 extremities with decorticate posturing and bilateral dilated pupils but only reactive on the left side the right has a sensory defect which is chronic and we know that the CT scan did not show any acute issues that were discernible so the patient now is is on a propofol drip At 1 point resuscitation status was indeterminate but with case management as well as cardiopulmonary technologist chief we were all of the consensus that we had to her on the site of caution and therefore of course she was intubated easily and without complication and has remained seizure-free since that time We are also told that there was a questionable background history of lupus I do not see any evidence of immunosuppressive medicine or any apparent evidence of reactivation no apparent skin or joint issues but certainly I could not rule out the possibility of cerebritis some just going to screen her with a sedimentation rate and LISA The next step is to request medical records from [facility] Review of Systems 2 Review of Systems: Yes Unobtainable due to mental status PMFSH Past Medical History Medical History Cystic fibrosis SVT (supraventricular tachycardia) Atrial fibrillation POTS (postural orthostatic tachycardia syndrome) Jackie-Danlos syndrome Anemia Lupus Refractory epilepsy Diabetic gastroparesis Social History Social History Household Members: Other Housing: Long Term Do you presently have visiting nurse or other home services: No (from [facility]) Alcohol intake: never Patient Tobacco Use Status: Never used Tobacco service: No Meds Allergies Allergy/AdvReac Type Severity Reaction Status Date / Time aripiprazole Allergy Unknown Unknown Verified 08/24/23 08:56 bee venom protein (honey bee) Allergy Unknown Anaphylaxis Verified 01/04/24 20:00 latex Allergy Unknown Hives Verified 01/04/24 20:00 shellfish derived Allergy Unknown Anaphylaxis Verified 01/04/24 20:00 trimethoprim Allergy Unknown Unknown Verified 08/24/23 08:56 banana Allergy Anaphylaxis Verified 01/04/24 20:00 Sulfa (Sulfonamide Allergy Unknown Verified 01/04/24 20:00 Antibiotics) Active Medications: Current Medications Acetaminophen (Acetaminophen Supp 650 Mg Supp.Rect) 650 mg TX Q6H PRN PRN Reason: Pain, Mild (Pain Scale 1-3) Acetaminophen (Acetaminophen 325 Mg Tablet) 650 mg G-TUBE Q6H PRN PRN Reason: PAIN OR FEVER Aspirin (Aspirin 81 Mg Tab.Chew) 81 mg G-TUBE DAILY [facility] Last Admin: 01/06/24 08:36 Dose: 81 mg Baclofen (Baclofen 20 Mg Tablet) 20 mg G-TUBE QID [facility] Last Admin: 01/06/24 17:53 Dose: 20 mg Budesonide (Budesonide 0.5 Mg/2 Ml Ampul.Neb) 0.5 mg INHALE RBID [facility] Last Admin: 01/06/24 09:10 Dose: 0.5 mg Clonazepam (Clonazepam 1 Mg Tablet) 1 mg G-TUBE BID [facility] Last Admin: 01/06/24 08:36 Dose: 1 mg Enoxaparin Sodium (Enoxaparin Sodium 40 Mg/0.4 Ml Syringe) 40 mg SUBCUT Q24H [facility] Last Admin: 01/05/24 23:06 Dose: 40 mg Norepinephrine Bitartrate (Levophed) 8 mg in 250 mls @ 0 mls/hr IV .Q0M [facility]; Protocol Last Admin: 01/06/24 18:17 Dose: 0.05 mcg/kg/min, 6.58 mls/hr Propofol (Diprivan) 1,000 mg in 100 mls @ 0 mls/hr IVCONT .Q0M [facility]; Protocol Ibuprofen (Ibuprofen 600 Mg Tablet) 600 mg G-TUBE Q8H PRN PRN Reason: Moderate Pain (Scale Score 5-6) Levetiracetam (Levetiracetam Oral Soln 500 Mg/5 Ml) 2,000 mg G-TUBE BID [facility] Last Admin: 01/06/24 08:35 Dose: 2,000 mg Lorazepam (Lorazepam 2 Mg/Ml Vial) 1 mg IM Q5M PRN PRN Reason: Seizures Last Admin: 01/05/24 17:14 Dose: 1 mg Lorazepam (Lorazepam 1 Mg Tablet) 1 mg PO Q6H [facility] Last Admin: 01/06/24 17:46 Dose: 1 mg Melatonin (Melatonin 3 Mg Tablet) 6 mg PO BEDTIME PRN PRN Reason: Insomnia Midazolam HCl (Midazolam Hcl/Pf 2 Mg/2 Ml Vial) 2 mg IVPUSH Q15M PRN PRN Reason: Ventilator synchrony Morphine Sulfate (Morphine Sulfate Oral Maye 10 Mg/5 Ml Solution) 10 mg G-TUBE Q4H PRN PRN Reason: Severe Pain (Scale Score 7-10) Last Admin: 01/06/24 14:12 Dose: 10 mg Non-Formulary Medication (Lansoprazole) 30 mg feeding tube DAILY [facility] Non-Formulary Medication (Zinc Oxide) 1 appl TOPICAL QSHIFT [facility] Phenobarbital (Phenobarbital 100 Mg Tablet) 100 mg PO BEDTIME [facility] Phenytoin (Phenytoin Oral Susp 100 Mg/4 Ml Oral.Susp) 300 mg PO TID [facility] Senna (Sennosides 8.6 Mg Tablet) 8.6 mg G-TUBE DAILY [facility] Last Admin: 01/06/24 08:35 Dose: 8.6 mg Sodium Chloride (0.9 % Sodium Chloride Flush 3 Ml Syringe) 3 ml IVFLUSH QSHIFT [facility] Last Admin: 01/06/24 16:09 Dose: Not Given Tizanidine HCl (Tizanidine Hcl 4 Mg Tablet) 8 mg G-TUBE TID [facility] Last Admin: 01/06/24 14:11 Dose: 8 mg Home Medications Medication Instructions Recorded Confirmed Last Taken Type acetaminophen 325 mg tablet 650 mg feeding tube Q6H PRN PAIN 01/04/24 01/04/24 Unknown History OR FEVER albuterol sulfate 2.5 mg/3 mL 2.5 mg inhalation Q6H PRN Wheezing 01/04/24 01/04/24 Unknown History (0.083 %) solution for nebulization aspirin 81 mg chewable tablet 81 mg feeding tube DAILY 01/04/24 01/04/24 Unknown History baclofen 20 mg tablet 20 mg feeding tube QID 01/04/24 01/04/24 Unknown History budesonide 1 mg/2 mL suspension 0.5 mg inhalation BID 01/04/24 01/04/24 Unknown History for nebulization clonazepam 0.5 mg tablet 1 mg feeding tube BID 01/04/24 01/04/24 Unknown History ibuprofen 200 mg tablet 600 mg feeding tube Q8H PRN 01/04/24 01/04/24 Unknown History Moderate Pain (Scale Score 5-6) lansoprazole 30 mg capsule,delayed 30 mg feeding tube DAILY 01/04/24 01/04/24 Unknown History release levetiracetam 100 mg/mL oral 1,000 mg feeding tube BID 01/04/24 01/04/24 Unknown History solution lorazepam 2 mg/mL injection 1 mg IM Q5M PRN Seizures 01/04/24 01/04/24 Unknown History solution morphine 10 mg/5 mL oral solution 10 mg feeding tube Q4H PRN Severe 01/04/24 01/04/24 Unknown History Pain (Scale Score 7-10) promethazine 6.25 mg/5 mL oral 25 mg feeding tube Q6H PRN Nausea 01/04/24 01/04/24 Unknown History syrup And Vomiting sennosides 8.6 mg tablet (senna) 8.6 mg feeding tube DAILY 01/04/24 01/04/24 Unknown History tizanidine 4 mg capsule 8 mg feeding tube TID 01/04/24 01/04/24 Unknown History zinc oxide 15 % topical cream 1 appl topical QSHIFT 01/04/24 01/04/24 Unknown History Physical Exam 2 Vital Signs: Vital Signs: Last Vital Signs Temp 98.4 F 01/06/24 16:00 Pulse 72 01/06/24 18:17 Resp 16 01/06/24 17:00 BP 88/53 L 01/06/24 18:17 Pulse Ox 98 01/06/24 17:00 O2 Del Method Mechanical Ventil ation 01/06/24 17:00 O2 Flow Rate 2 01/06/24 07:26 FiO2 50 01/06/24 17:00 Oxygen Flow Rate 2 01/04/24 20:13 BMI result Body Mass Index 26.6 Vital signs were stable although of course she was hypoxic and therefore requiring 100% FiO2 for oxygenation and this was during her continued seizures with decorticate posturing and dilated pupils but reactive on the left Good bilateral carotid upstrokes and no neck vein distention and no gallops Lungs without adventitious sounds and chest x-ray without evidence of infiltrate Abdomen soft no organomegaly presence of a gastric tube Extremities without infection without edema without rash Results Labs 01/05/24 05:31 01/05/24 05:31 Assessment and Plan (1) 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 benzodiazepines with intubation re-evaluate in the morning check to see if there is any activity to the lupus that could contribute to cerebritis and see if we can not obtain a CSF analysis from [facility] if not questionable need for it here we will keep Alida and Amara as her to basic medications Total time managing care of this patient today: 120 minutes.
--- NOTE | 2024-01-06 18:36 | PC.NURSE ---
upon arrival to ICU pt had witnessed mika w/ medical team at bedside. Pt was intubated soon after arrival
--- NOTE | 2024-01-06 18:41 | W.PM.CCHP ---
Procedures Date of Service Date of Service: 01/06/24 Intubation Intubation Comments: Emergent intubation with the consent of case management as well as chief technician x ray because of patient's very threatening status epilepticus intubation with the use of IV propofol performed without complication with excellent visualization of vocal cords clearly no aspiration chest x-ray with good tube position excellent end-tidal CO2 response and the tube was secured Consent for Procedure: Emergent-no informed consent obtained Time out performed: Yes Sedative: propofol Laryngoscope: fiber optic video scope ET tube size: 7 ET tube uncuffed: No Tube secured depth (cm): 24 Tube secured location: lips Tube placement confirmation: visualized tube passing through cords, equal breath sounds bilaterally, no breath sounds over epigastrium and confirmation by capnometry Patient tolerated procedure: well and no complications Intubation complications: none
--- NOTE | 2024-01-06 18:44 | P.PCNCC_ITS ---
Procedures Date of Service Date of Service: 01/06/24 Intubation Intubation Comments: Urgent intubation due to development of acute on chronic hypercarbic and hypoxemic respiratory failure with evidence of probable acute on chronic bibasilar aspiration pneumonitis inpatient with longstanding chronic lung disease recent infection with both post COVID and influenza and has longstanding chronic pulmonary arterial hypertension on a combination of medications for that entity with acute on chronic cor pulmonale and therefore intubation with the use of propofol after extensive explanation to patient and son without necessity for paralytic with easy visualization of vocal cords no trauma no aspiration no complications excellent end-tidal CO2 response good bilateral breath sounds and excellent tube position on chest x-ray and the tube was secured at 23 cm from t he lip Consent for Procedure: Elective - informed consent obtained Time out performed: Yes Sedative: propofol Laryngoscope: fiber optic video scope ET tube size: 7.5 ET tube uncuffed: No Tube secured depth (cm): 23 Tube secured location: lips Tube placement confirmation: visualized tube passing through cords, equal breath sounds bilaterally, no breath sounds over epigastrium and confirmation by capnometry Patient tolerated procedure: well and no complications Intubation complications: none
[2024-01-06] MEDS: propofoL 1,000 MG/100 ML VIAL 21.06 MG IVCONT ×2 (19:08→23:32)
[2024-01-06 20:24] LABS: VBG Base Excess -1.4 mmol/L; VBG HCO3 23 mmol/L (22-26); VBG pCO2 38 mmHg; VBG pH 7.39 (7.32-7.43); VBG pO2 59 mmHg
[2024-01-06 20:24] LABS: MANUAL DIFF FLAG NO
[2024-01-06 20:25] LABS: Basophils Percent Auto 0.2 % (0-2); Eosinophils Absolute Auto 0.2 X10*3/uL (0.0-0.4); Eosinophils Percent Auto 3.1 % (0-4); Hemoglobin 11.7 g/dl (12.0-16.0); Imm Gran Abs Auto 0.01 X10*3/uL (0.00-0.03); Imm Gran Pct Auto 0.2 % (0.0-0.4); Lymphocytes Absolute Auto 1.2 X10*3/uL (1.2-4.9); Lymphocytes Percent Auto 23.9 % (20-40); Mean Corpuscular HGB Conc 35.5 g/dl (31.0-35.0); Mean Corpuscular Hemoglobin 30.7 pg (27.0-33.0); Mean Corpuscular Volume 86.6 fL (80.0-98.0); Mean Platelet Volume 8.9 fL (9.4-12.3); Monocytes Absolute Auto 0.4 X10*3/uL (0.1-1.2); Neutrophils Absolute Auto 3.3 x10*3/uL (2.0-8.3); Neutrophils Percent Auto 64.6 % (45-73); Platelet Count 199 X10*3/uL (160-400); Red Blood Count 3.81 X10*6/uL (4.20-5.50); Red Cell Distribution Width 11.9 % (11.0-16.0); White Blood Count 5.2 X10*3/uL (4.8-10.8)
[2024-01-06 20:30] LABS: Erythrocyte Sedimentation Rate 18 MM/HR (0-20)
[2024-01-06 20:39] LABS: Venous Blood Gas Refer to POC result
[2024-01-06 20:47] LABS: Albumin Level 3.9 g/dL (3.5-5.0); Anion Gap 11 (12-20); Blood Urea Nitrogen 15 mg/dL (9-16); Carbon Dioxide 24 mmol/L (22-29); Chloride 109 mmol/L (96-108); Creatinine Clr Calc Pharmacy 112.2; Estimated Glomerular Filt Rate > 60; Glucose Random 136 mg/dL (60-115); Magnesium 1.7 mg/dL (1.6-2.6); Phosphorus 3.1 mg/dL (2.7-4.5); Sodium 140 mmol/L (135-145)
--- NOTE | 2024-01-06 21:16 | P.EN_ITS ---
Event Note Date of Service: 01/06/24 Event Note: [facility] records received, noted that patient's Healthcare proxy is her father, Rajesh Lizarraga, , this was not in the record. I personally called the patient's father and spoke with him to inform him that patient is admitted into [facility] and is intubated due to seizures. According to father, patient has extensive history of psychiatric problems and admissions, he stated please do not tell this to my daughter , but he informs me that the patient has history of dissociative identity disorder, as well as multiple psychiatric diagnoses since she was a child, reports patient does not have history of traumatic brain injury, no craniotomy, cystic fibrosis or seizures. States patient was under her mother's care until she was 20 years old, and has been admitted to multiple facilities throughout [place] making up diagnoses , the patient no longer wants relationship with mother due to her not believing her diagnoses . 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 History of TBI/left hemiplegia: [facility] did not seem to find history of TBI, noted the left upper extremity and left lower extremity were contracted, but also previously noted the patient did have movement on left upper and left lower extremity in the past. Physical medicine and rehab recommended to continue baclofen and tizanidine. Dilation of right pupil seems to be chronic Psychiatry was also involved the patient's care and at that time clear patient to make medical decisions. Patient also decided to make herself MANAGER REQUIREMENTS, but requested DNR/DNI as [facility] involved in care. Code status changed to DNR/DNI per patient wishes. I informed father that we will get psych consult and social work involved in this case. FATHER WOULD LIKE FOR THIS INFORMATION TO NOT BE DISCLOSED TO PATIENT. He is afraid she will no longer like for him to be involved in her care. Time Spent With Patient Time: Total time managing care of this patient today ____ minutes.
[2024-01-06] MEDS: Phenytoin Oral Susp 100 MG/4 ML ORAL.SUSP 300 MG PO (22:03)
[2024-01-07] VITALS (32 sets, daily range): BP systolic 95–123; BP diastolic 53–82; PULSE 67–111; RESP 13–22; TEMP 34.9–38.2; O2SAT 96–100; BMI 26.1
[2024-01-07] MEDS: Enoxaparin Sodium 40 MG/0.4 ML SYRINGE SUBCUT ×2 (00:59→23:53)
[2024-01-07] MEDS: propofoL 1,000 MG/100 ML VIAL 21.06 MG IVCONT (02:55)
[2024-01-07 05:09] LABS: VBG Base Excess 2.4 mmol/L; VBG HCO3 27 mmol/L (22-26); VBG pCO2 41 mmHg; VBG pH 7.42 (7.32-7.43); VBG pO2 54 mmHg
[2024-01-07 05:10] LABS: Venous Blood Gas Refer to POC result
[2024-01-07 05:17] LABS: MANUAL DIFF FLAG NO
[2024-01-07 05:21] LABS: Basophils Percent Auto 0.1 % (0-2); Eosinophils Absolute Auto 0.1 X10*3/uL (0.0-0.4); Eosinophils Percent Auto 1.5 % (0-4); Hematocrit 32.7 % (37.0-47.0); Hemoglobin 11.5 g/dl (12.0-16.0); Imm Gran Abs Auto 0.03 X10*3/uL (0.00-0.03); Imm Gran Pct Auto 0.3 % (0.0-0.4); Lymphocytes Absolute Auto 1.3 X10*3/uL (1.2-4.9); Lymphocytes Percent Auto 14.5 % (20-40); Mean Corpuscular HGB Conc 35.2 g/dl (31.0-35.0); Mean Corpuscular Hemoglobin 30.7 pg (27.0-33.0); Mean Corpuscular Volume 87.2 fL (80.0-98.0); Mean Platelet Volume 9.1 fL (9.4-12.3); Monocytes Absolute Auto 0.7 X10*3/uL (0.1-1.2); Monocytes Percent Auto 7.3 % (2-11); Neutrophils Absolute Auto 6.8 x10*3/uL (2.0-8.3); Neutrophils Percent Auto 76.3 % (45-73); Platelet Count 245 X10*3/uL (160-400); Red Blood Count 3.75 X10*6/uL (4.20-5.50); Red Cell Distribution Width 11.9 % (11.0-16.0); White Blood Count 8.9 X10*3/uL (4.8-10.8)
[2024-01-07] MEDS: LORazepam 1 MG TABLET PO ×4 (05:28→23:23)
[2024-01-07] MEDS: propofoL 1,000 MG/100 ML VIAL 16.85 MG IVCONT (05:37)
[2024-01-07 05:39] LABS: Alanine Aminotransferase 33 U/L (0-31); Albumin Level 3.9 g/dL (3.5-5.0); Alkaline Phosphatase 90 U/L (39-117); Anion Gap 11 (12-20); Aspartate Amino Transferase 23 U/L (5-31); Bilirubin Total 0.4 mg/dL (0.0-1.0); Blood Urea Nitrogen 12 mg/dL (9-16); Calcium 8.9 mg/dL (8.4-10.2); Carbon Dioxide 25 mmol/L (22-29); Chloride 107 mmol/L (96-108); Estimated Glomerular Filt Rate > 60; Glucose Random 116 mg/dL (60-115); Magnesium 1.8 mg/dL (1.6-2.6); Phosphorus 3.2 mg/dL (2.7-4.5); Potassium 4.3 mmol/L (3.3-5.1); Sodium 139 mmol/L (135-145)
[2024-01-07] MEDS: Midazolam HCl/PF 2 MG/2 ML VIAL IVPUSH (08:39)
[2024-01-07] MEDS: Aspirin 81 MG TAB.CHEW G-TUBE (08:47)
[2024-01-07] MEDS: TiZANidine HCL 4 MG TABLET 8 MG G-TUBE ×3 (08:47→20:45)
[2024-01-07] MEDS: Baclofen 20 MG TABLET G-TUBE ×4 (08:47→20:45)
[2024-01-07] MEDS: Sennosides 8.6 MG TABLET G-TUBE (08:47)
[2024-01-07] MEDS: clonazePAM 1 MG TABLET G-TUBE ×2 (08:47→20:44)
[2024-01-07] MEDS: Phenytoin Oral Susp 100 MG/4 ML ORAL.SUSP 300 MG PO ×3 (08:48→20:43)
[2024-01-07] MEDS: levETIRAcetam Oral Soln 500 MG/5 ML 2000 MG G-TUBE ×2 (08:48→20:42)
[2024-01-07] MEDS: 0.9 % Sodium Chloride Flush 3 ML SYRINGE IVFLUSH ×3 (08:48→20:35)
--- NOTE | 2024-01-07 09:40 | MHC.CM.PN ---
Addendum entered by Christa Mendez 01/07/24 15:22: Review of 01/07 notes by psych (after pt was extubated). Pt has the capacity to make DNR/DNI/[employer] decisions. Original Note: Pt in ICU intubated for airway protection on 01/05 following 3 TOOLING SPECIALIST for seizure activity. Pt reportedly asked for all resuscitative measures prior to ICU transfer. HCP from [facility] send over which names pt's father as agent. Per DON at [facility], pt's HCP is NOT activated and pt is able to make her own health care decisions. Call placed to pt's father/HCP. He states pt has been in [facility] childrens/adolescent psych facilities for psych issues most of her life. ([facility], [facility] to name a few) he states she was diagnosed with a personality disorder w/confabulation, low cognition scoring and low muscle tone. The other medical dx including cystic fibrosis, TBI are false. He also states she had addiction issues w/benzos and pain meds and was in treatment for same. He states she is very convincing and will 'fake' symptoms for attention or meds. Mr. Lizarraga states her most recent admission at [facility] involved her asking for [employer]/Hospice so she could get 'unlimited pain meds'. She was then transferred to [facility] without [employer] in place. Call placed to DON at [facility]: Pt is relatively new to them and they were not entirely aware of pt's past history as stated by Mr. Lizarraga. Mr. Lizarraga is collecting pt's medical records to send over which reportedly contain the above information. He asks for total confidentiality with this information as he fears she will 'cut him out of her life' if she knows he's speaking with staff. Pt has lived independently at times but frequents hospitals and care centers. Plan of Care for day: pt will be extubated and when medically stable, will be seen by psych for a capacity evaluation and possible need for HCP activation. Pt may return to [facility] if no findings for INPT psych are needed. CM to follow for finalization of d/c needs.
[2024-01-07] MEDS: propofoL 1,000 MG/100 ML VIAL 12.64 MG IVCONT (10:32)
--- NOTE | 2024-01-07 11:02 | MHC.CLN ---
F/U PT IS INTUBATED AND SEDATED PT RECEIVING VITAL 1.5 AT MAX GOAL RATE 50 ML PER HOUR AND FREE WATER FLUSHES 240 ML Q 6 HOURS PROVIDES 1800 KCALS (30.8 KCALS/KG CMW); 81 G PROTEIN (1.38 G/KG CMW); 1877 ML FREE WATER FROM FORMULA AND FLUSH (32.1 ML/KG CMW). TF OVER EXCEEDING KCAL NEEDS R/T KCALS FROM SEDATION RECOMMEND VITAL 1.5 AT MAX GOAL RATE 40ML PER HOUR WITH FREE WATER FLUSHES 240 ML Q 6 HOURS TO PROVIDE 1440KCALS (1774KCALS TOTAL WITH SEDATION; 30KCALS/KG BASED ON CMW); 65G PROTEIN (1.0G/KG); 1693 ML TOTAL FREE WATER FROM FORMULA AND FLUSHES (29 ML/KG) DO NOT CHECK RESIDUALS SINCE J TUBE FEEDING
--- NOTE | 2024-01-07 14:35 | PM.PSYCN ---
History of Present Illness Date of Service: t Chief Complaint: Seizure Reason for Consult: Hx of mental illness Additional Sources of Information: The patient is currently intubated, she is awake but unable to be full y assessed. Please reconsult when the patietn is extubated. [facility] Medical History Cystic fibrosis SVT (supraventricular tachycardia) Atrial fibrillation POTS (postural orthostatic tachycardia syndrome) Jackie-Danlos syndrome Anemia Lupus Refractory epilepsy Diabetic gastroparesis Diagnostics Vital Signs (24Hr): Vital Signs - 24 hr 01/06/24 15:18 01/06/24 15:52 01/06/24 16:00 Temperature 98.4 F Pulse Rate 104 H 104 H 102 H Respiratory Rate 20 12 20 Blood Pressure 113/56 L 113/56 L 117/48 L Pulse Oximetry 100 100 Oxygen Delivery Method Non-Rebreather Mask Mechanical Ventilation Fraction of Inspired Oxygen 100 80 01/06/24 16:45 01/06/24 17:00 01/06/24 18:00 Temperature Pulse Rate 80 74 Respiratory Rate 16 16 Blood Pressure 99/58 L 90/53 L Pulse Oximetry 98 98 Oxygen Delivery Method Mechanical Ventilation Mechanical Ventilation Fraction of Inspired Oxygen 55 50 50 01/06/24 18:17 01/06/24 19:00 01/06/24 19:08 Temperature Pulse Rate 72 63 66 Respiratory Rate 16 16 Blood Pressure 88/53 L 108/69 108/69 Pulse Oximetry 100 Oxygen Delivery Method Mechanical Ventilation Fraction of Inspired Oxygen 50 01/06/24 19:08 01/06/24 19:50 01/06/24 20:00 Temperature 99.0 F Pulse Rate 66 72 Respiratory Rate 16 16 Blood Pressure 108/69 101/62 Pulse Oximetry 99 Oxygen Delivery Method Mechanical Ventilation Fraction of Inspired Oxygen 50 50 01/06/24 20:00 01/06/24 21:00 01/06/24 22:00 Temperature Pulse Rate 72 77 Respiratory Rate 16 16 Blood Pressure 99/57 L 99/62 Pulse Oximetry 99 100 Oxygen Delivery Method Mechanical Ventilation Mechanical Ventilation Fraction of Inspired Oxygen 50 50 50 01/06/24 23:00 01/06/24 23:32 01/06/24 23:32 Temperature Pulse Rate 76 73 73 Respiratory Rate 16 Blood Pressure 98/56 L 96/57 L 96/57 L Pulse Oximetry 99 Oxygen Delivery Method Mechanical Ventilation Fraction of Inspired Oxygen 50 01/07/24 00:00 01/07/24 00:00 01/07/24 00:07 Temperature Pulse Rate 74 74 Respiratory Rate 16 Blood Pressure 99/58 L 95/53 L Pulse Oximetry 99 Oxygen Delivery Method Mechanical Ventilation Fraction of Inspired Oxygen 50 50 01/07/24 00:33 01/07/24 01:00 01/07/24 02:00 Temperature Pulse Rate 77 86 Respiratory Rate 16 16 Blood Pressure 104/62 113/69 Pulse Oximetry 100 99 Oxygen Delivery Method Mechanical Ventilation Mechanical Ventilation Fraction of Inspired Oxygen 50 50 50 01/07/24 02:55 01/07/24 02:55 01/07/24 03:00 Temperature 99.0 F Pulse Rate 75 75 80 Respiratory Rate 16 16 19 Blood Pressure 107/65 107/65 109/66 Pulse Oximetry 100 Oxygen Delivery Method Mechanical Ventilation Fraction of Inspired Oxygen 50 01/07/24 03:17 01/07/24 03:51 01/07/24 04:00 Temperature Pulse Rate 74 Respiratory Rate 16 Blood Pressure 105/65 Pulse Oximetry 99 Oxygen Delivery Method Mechanical Ventilation Fraction of Inspired Oxygen 50 50 50 01/07/24 05:00 01/07/24 05:37 01/07/24 05:37 Temperature Pulse Rate 82 84 84 Respiratory Rate 16 Blood Pressure 103/64 105/67 105/67 Pulse Oximetry 99 Oxygen Delivery Method Mechanical Ventilation Fraction of Inspired Oxygen 50 01/07/24 06:00 01/07/24 07:00 01/07/24 07:36 Temperature Pulse Rate 75 78 Respiratory Rate 16 19 Blood Pressure 105/65 120/69 Pulse Oximetry 99 100 Oxygen Delivery Method Mechanical Ventilation Mechanical Ventilation Fraction of Inspired Oxygen 50 50 50 01/07/24 08:00 01/07/24 08:20 01/07/24 09:00 Temperature 100.2 F 100.6 F H Pulse Rate 90 67 Respiratory Rate 17 17 Blood Pressure 120/79 113/68 Pulse Oximetry 99 100 Oxygen Delivery Method Mechanical Ventilation Mechanical Ventilation Fraction of Inspired Oxygen 50 35 50 01/07/24 10:00 01/07/24 11:00 01/07/24 11:21 Temperature 100.2 F 100.4 F Pulse Rate 72 100 Respiratory Rate 22 H 22 H Blood Pressure 109/70 106/68 Pulse Oximetry 100 99 Oxygen Delivery Method Mechanical Ventilation Mechanical Ventilation Fraction of Inspired Oxygen 50 50 30 01/07/24 11:40 01/07/24 11:57 01/07/24 12:00 Temperature 100.8 F H Pulse Rate 80 111 H Respiratory Rate 20 Blood Pressure 109/60 121/63 Pulse Oximetry 99 Oxygen Delivery Method Mechanical Ventilation Fraction of Inspired Oxygen 30 50 01/07/24 12:23 01/07/24 13:00 01/07/24 13:35 Temperature 100.8 F H Pulse Rate 94 99 96 Respiratory Rate 16 Blood Pressure 121/66 118/73 106/63 Pulse Oximetry 98 Oxygen Delivery Method Mechanical Ventilation Fraction of Inspired Oxygen 50 01/07/24 14:00 01/07/24 14:04 Temperature 100.4 F Pulse Rate 105 H 103 H Respiratory Rate 13 Blood Pressure 113/63 119/58 L Pulse Oximetry 98 Oxygen Delivery Method Mechanical Ventilation Fraction of Inspired Oxygen 50 BMI result Body Mass Index 26.1 Labs 01/07/24 05:06 01/07/24 05:06 Labs: Laboratory Results - last 48 hr 01/06/24 01/06/24 01/06/24 14:20 19:28 20:17 WBC RBC Hgb Hct MCV MCH MCHC RDW Plt Count MPV Immature Gran % (Auto) Neut % (Auto) Lymph % (Auto) [place] % (Auto) Eos % (Auto) Baso % (Auto) Lymph # (Auto) [place] # (Auto) Eos # (Auto) Baso # (Auto) Abs Immat Gran (auto) Absolute Neuts (auto) Absolute Nucleated RBC Nucleated RBC % (auto) ESR 18 VBG pH 7.39 VBG pCO2 38 VBG pO2 59 VBG HCO3 23 VBG O2 Saturation 88.0 VBG Base Excess -1.4 Sodium Potassium Chloride Carbon Dioxide Anion Gap BUN Creatinine Estim Creat Clear Calc Estimated GFR POC Glucose 93 Random Glucose Calcium Phosphorus Magnesium Total Bilirubin AST ALT Alkaline Phosphatase Total Protein Albumin 01/06/24 01/07/24 01/07/24 20:18 05:02 05:06 WBC 5.2 8.9 RBC 3.81 L 3.75 L Hgb 11.7 L 11.5 L Hct 33.0 L 32.7 L MCV 86.6 87.2 MCH 30.7 30.7 MCHC 35.5 H 35.2 H RDW 11.9 11.9 Plt Count 199 245 MPV 8.9 L 9.1 L Immature Gran % (Auto) 0.2 0.3 Neut % (Auto) 64.6 76.3 H Lymph % (Auto) 23.9 14.5 L [place] % (Auto) 8.0 7.3 Eos % (Auto) 3.1 1.5 Baso % (Auto) 0.2 0.1 Lymph # (Auto) 1.2 1.3 [place] # (Auto) 0.4 0.7 Eos # (Auto) 0.2 0.1 Baso # (Auto) 0.0 0.0 Abs Immat Gran (auto) 0.01 0.03 Absolute Neuts (auto) 3.3 6.8 Absolute Nucleated RBC 0.000 0.000 Nucleated RBC % (auto) 0.0 0.0 ESR VBG pH 7.42 VBG pCO2 41 VBG pO2 54 VBG HCO3 27 H VBG O2 Saturation 85.0 VBG Base Excess 2.4 Sodium 140 139 Potassium 4.0 4.3 Chloride 109 H 107 Carbon Dioxide 24 25 Anion Gap 11 L 11 L BUN 15 12 Creatinine 0.73 0.65 Estim Creat Clear Calc 112.2 125.0 Estimated GFR > 60 > 60 POC Glucose Random Glucose 136 H 116 H Calcium 9.0 D 8.9 Phosphorus 3.1 3.2 Magnesium 1.7 1.8 Total Bilirubin 0.4 AST 23 ALT 33 H Alkaline Phosphatase 90 Total Protein 7.0 Albumin 3.9 3.9 Imaging Radiology Impressions: ITS Impressions Chest X-Ray 01/04/24 20:38 IMPRESSION: No radiographic evidence of acute cardiopulmonary disease. Head CT 01/04/24 23:50 IMPRESSION: No acute intracranial abnormality including hemorrhage, mass effect, hydrocephalus, or acute territorial edematous infarction. Chest X-Ray 01/06/24 16:45 IMPRESSION: 1. The endotracheal tube terminates at 4.3 cm above the sai. 2. No focal consolidation, pleural effusion or pneumothorax. Medications Medications Current Medications Acetaminophen (Acetaminophen Supp 650 Mg Supp.Rect) 650 mg FL Q6H PRN PRN Reason: Pain, Mild (Pain Scale 1-3) Acetaminophen (Acetaminophen 325 Mg Tablet) 650 mg G-TUBE Q6H PRN PRN Reason: PAIN OR FEVER Aspirin (Aspirin 81 Mg Tab.Chew) 81 mg G-TUBE DAILY [facility] Last Admin: 01/07/24 08:47 Dose: 81 mg Baclofen (Baclofen 20 Mg Tablet) 20 mg G-TUBE QID [facility] Last Admin: 01/07/24 13:26 Dose: 20 mg Budesonide (Budesonide 0.5 Mg/2 Ml Ampul.Neb) 0.5 mg INHALE RBID [facility] Last Admin: 01/07/24 11:55 Dose: Not Given Clonazepam (Clonazepam 1 Mg Tablet) 1 mg G-TUBE BID [facility] Last Admin: 01/07/24 08:47 Dose: 1 mg Enoxaparin Sodium (Enoxaparin Sodium 40 Mg/0.4 Ml Syringe) 40 mg SUBCUT Q24H [facility] Last Admin: 01/07/24 00:59 Dose: 40 mg Norepinephrine Bitartrate (Levophed) 8 mg in 250 mls @ 0 mls/hr IV .Q0M [facility]; Protocol Last Titration: 01/07/24 14:04 Dose: 0 mcg/kg/min, 0 mls/hr Propofol (Diprivan) 1,000 mg in 100 mls @ 0 mls/hr IVCONT .Q0M [facility]; Protocol Last Titration: 01/07/24 11:40 Dose: 15 mcg/kg/min, 6.32 mls/hr Valproic Acid 1,400 mg/ Sodium (Chloride) 114 mls @ 100 mls/hr IV ONCE [facility] Last Admin: 01/07/24 13:34 Dose: 100 mls/hr Levetiracetam (Levetiracetam Oral Soln 500 Mg/5 Ml) 2,000 mg G-TUBE BID [facility] Last Admin: 01/07/24 08:48 Dose: 2,000 mg Lorazepam (Lorazepam 1 Mg Tablet) 1 mg PO Q6H [facility] Last Admin: 01/07/24 10:33 Dose: 1 mg Melatonin (Melatonin 3 Mg Tablet) 6 mg PO BEDTIME PRN PRN Reason: Insomnia Midazolam HCl (Midazolam Hcl/Pf 2 Mg/2 Ml Vial) 2 mg IVPUSH Q15M PRN PRN Reason: Ventilator synchrony Last Admin: 01/07/24 08:39 Dose: 2 mg Non-Formulary Medication (Lansoprazole) 30 mg feeding tube DAILY [facility] Non-Formulary Medication (Zinc Oxide) 1 appl TOPICAL QSHIFT [facility] Phenobarbital (Phenobarbital 100 Mg Tablet) 100 mg PO BEDTIME [facility] Last Admin: 01/06/24 22:04 Dose: 100 mg Phenytoin (Phenytoin Oral Susp 100 Mg/4 Ml Oral.Susp) 300 mg PO TID [facility] Last Admin: 01/07/24 08:48 Dose: 300 mg Senna (Sennosides 8.6 Mg Tablet) 8.6 mg G-TUBE DAILY [facility] Last Admin: 01/07/24 08:47 Dose: 8.6 mg Sodium Chloride (0.9 % Sodium Chloride Flush 3 Ml Syringe) 3 ml IVFLUSH QSHIFT [facility] Last Admin: 01/07/24 08:48 Dose: 3 ml Tizanidine HCl (Tizanidine Hcl 4 Mg Tablet) 8 mg G-TUBE TID [facility] Last Admin: 01/07/24 08:47 Dose: 8 mg Allergies Allergies Allergy/AdvReac Type Severity Reaction Status Date / Time aripiprazole Allergy Unknown Unknown Verified 08/24/23 08:56 bee venom protein (honey bee) Allergy Unknown Anaphylaxis Verified 01/04/24 20:00 latex Allergy Unknown Hives Verified 01/04/24 20:00 shellfish derived Allergy Unknown Anaphylaxis Verified 01/04/24 20:00 trimethoprim Allergy Unknown Unknown Verified 08/24/23 08:56 banana Allergy Anaphylaxis Verified 01/04/24 20:00 Sulfa (Sulfonamide Allergy Unknown Verified 01/04/24 20:00 Antibiotics) Assessment & Plan Assessment & Plan (1) Anoxic encephalopathy: Status: Acute Code(s): G93.1 - Anoxic brain damage, not elsewhere classified (2) 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 UNABLE TO BE ASSESSED, PLEASE RECONSULT WHEN THE PATEINT IS EXTUBATED Total time managing care of this patient today __10__ minutes.
--- NOTE | 2024-01-07 15:05 | P.CNPS_ITS ---
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 She was transferred to the ICU for treatment of her seizures. 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 She requested opioids for pain. Apparently, her father who is the HCP was contacted and he reported an extensive history of mental illness, and possible [place] disorder, DID and others. On interview, the patient denied current psychiatric history, she denied hallucinations, delusions or suicidal thoughts. She was able tocontract for safety in the unit. Past Psychiatric History: As per father extensive admissions to psychiatry in the past Medical Evaluation Reviewed: Yes [facility] Medical History Cystic fibrosis SVT (supraventricular tachycardia) Atrial fibrillation POTS (postural orthostatic tachycardia syndrome) Jackie-Danlos syndrome Anemia Lupus Refractory epilepsy Diabetic gastroparesis Diagnostics Vital Signs (24Hr): Vital Signs - 24 hr 01/06/24 15:18 01/06/24 15:52 01/06/24 16:00 Temperature 98.4 F Pulse Rate 104 H 104 H 102 H Respiratory Rate 20 12 20 Blood Pressure 113/56 L 113/56 L 117/48 L Pulse Oximetry 100 100 Oxygen Delivery Method Non-Rebreather Mask Mechanical Ventilation Fraction of Inspired Oxygen 100 80 01/06/24 16:45 01/06/24 17:00 01/06/24 18:00 Temperature Pulse Rate 80 74 Respiratory Rate 16 16 Blood Pressure 99/58 L 90/53 L Pulse Oximetry 98 98 Oxygen Delivery Method Mechanical Ventilation Mechanical Ventilation Fraction of Inspired Oxygen 55 50 50 01/06/24 18:17 01/06/24 19:00 01/06/24 19:08 Temperature Pulse Rate 72 63 66 Respiratory Rate 16 16 Blood Pressure 88/53 L 108/69 108/69 Pulse Oximetry 100 Oxygen Delivery Method Mechanical Ventilation Fraction of Inspired Oxygen 50 01/06/24 19:08 01/06/24 19:50 01/06/24 20:00 Temperature 99.0 F Pulse Rate 66 72 Respiratory Rate 16 16 Blood Pressure 108/69 101/62 Pulse Oximetry 99 Oxygen Delivery Method Mechanical Ventilation Fraction of Inspired Oxygen 50 50 01/06/24 20:00 01/06/24 21:00 01/06/24 22:00 Temperature Pulse Rate 72 77 Respiratory Rate 16 16 Blood Pressure 99/57 L 99/62 Pulse Oximetry 99 100 Oxygen Delivery Method Mechanical Ventilation Mechanical Ventilation Fraction of Inspired Oxygen 50 50 50 01/06/24 23:00 01/06/24 23:32 01/06/24 23:32 Temperature Pulse Rate 76 73 73 Respiratory Rate 16 Blood Pressure 98/56 L 96/57 L 96/57 L Pulse Oximetry 99 Oxygen Delivery Method Mechanical Ventilation Fraction of Inspired Oxygen 50 01/07/24 00:00 01/07/24 00:00 01/07/24 00:07 Temperature Pulse Rate 74 74 Respiratory Rate 16 Blood Pressure 99/58 L 95/53 L Pulse Oximetry 99 Oxygen Delivery Method Mechanical Ventilation Fraction of Inspired Oxygen 50 50 01/07/24 00:33 01/07/24 01:00 01/07/24 02:00 Temperature Pulse Rate 77 86 Respiratory Rate 16 16 Blood Pressure 104/62 113/69 Pulse Oximetry 100 99 Oxygen Delivery Method Mechanical Ventilation Mechanical Ventilation Fraction of Inspired Oxygen 50 50 50 01/07/24 02:55 01/07/24 02:55 01/07/24 03:00 Temperature 99.0 F Pulse Rate 75 75 80 Respiratory Rate 16 16 19 Blood Pressure 107/65 107/65 109/66 Pulse Oximetry 100 Oxygen Delivery Method Mechanical Ventilation Fraction of Inspired Oxygen 50 01/07/24 03:17 01/07/24 03:51 01/07/24 04:00 Temperature Pulse Rate 74 Respiratory Rate 16 Blood Pressure 105/65 Pulse Oximetry 99 Oxygen Delivery Method Mechanical Ventilation Fraction of Inspired Oxygen 50 50 50 01/07/24 05:00 01/07/24 05:37 01/07/24 05:37 Temperature Pulse Rate 82 84 84 Respiratory Rate 16 Blood Pressure 103/64 105/67 105/67 Pulse Oximetry 99 Oxygen Delivery Method Mechanical Ventilation Fraction of Inspired Oxygen 50 01/07/24 06:00 01/07/24 07:00 01/07/24 07:36 Temperature Pulse Rate 75 78 Respiratory Rate 16 19 Blood Pressure 105/65 120/69 Pulse Oximetry 99 100 Oxygen Delivery Method Mechanical Ventilation Mechanical Ventilation Fraction of Inspired Oxygen 50 50 50 01/07/24 08:00 01/07/24 08:20 01/07/24 09:00 Temperature 100.2 F 100.6 F H Pulse Rate 90 67 Respiratory Rate 17 17 Blood Pressure 120/79 113/68 Pulse Oximetry 99 100 Oxygen Delivery Method Mechanical Ventilation Mechanical Ventilation Fraction of Inspired Oxygen 50 35 50 01/07/24 10:00 01/07/24 11:00 01/07/24 11:21 Temperature 100.2 F 100.4 F Pulse Rate 72 100 Respiratory Rate 22 H 22 H Blood Pressure 109/70 106/68 Pulse Oximetry 100 99 Oxygen Delivery Method Mechanical Ventilation Mechanical Ventilation Fraction of Inspired Oxygen 50 50 30 01/07/24 11:40 01/07/24 11:57 01/07/24 12:00 Temperature 100.8 F H Pulse Rate 80 111 H Respiratory Rate 20 Blood Pressure 109/60 121/63 Pulse Oximetry 99 Oxygen Delivery Method Mechanical Ventilation Fraction of Inspired Oxygen 30 50 01/07/24 12:23 01/07/24 13:00 01/07/24 13:35 Temperature 100.8 F H Pulse Rate 94 99 96 Respiratory Rate 16 Blood Pressure 121/66 118/73 106/63 Pulse Oximetry 98 Oxygen Delivery Method Mechanical Ventilation Fraction of Inspired Oxygen 50 01/07/24 14:00 01/07/24 14:04 Temperature 100.4 F Pulse Rate 105 H 103 H Respiratory Rate 13 Blood Pressure 113/63 119/58 L Pulse Oximetry 98 Oxygen Delivery Method Mechanical Ventilation Fraction of Inspired Oxygen 50 BMI result Body Mass Index 26.1 Labs 01/07/24 05:06 01/07/24 05:06 Labs: Laboratory Results - last 48 hr 01/06/24 01/06/24 01/06/24 14:20 19:28 20:17 WBC RBC Hgb Hct MCV MCH MCHC RDW Plt Count MPV Immature Gran % (Auto) Neut % (Auto) Lymph % (Auto) [place] % (Auto) Eos % (Auto) Baso % (Auto) Lymph # (Auto) [place] # (Auto) Eos # (Auto) Baso # (Auto) Abs Immat Gran (auto) Absolute Neuts (auto) Absolute Nucleated RBC Nucleated RBC % (auto) ESR 18 VBG pH 7.39 VBG pCO2 38 VBG pO2 59 VBG HCO3 23 VBG O2 Saturation 88.0 VBG Base Excess -1.4 Sodium Potassium Chloride Carbon Dioxide Anion Gap BUN Creatinine Estim Creat Clear Calc Estimated GFR POC Glucose 93 Random Glucose Calcium Phosphorus Magnesium Total Bilirubin AST ALT Alkaline Phosphatase Total Protein Albumin 01/06/24 01/07/24 01/07/24 20:18 05:02 05:06 WBC 5.2 8.9 RBC 3.81 L 3.75 L Hgb 11.7 L 11.5 L Hct 33.0 L 32.7 L MCV 86.6 87.2 MCH 30.7 30.7 MCHC 35.5 H 35.2 H RDW 11.9 11.9 Plt Count 199 245 MPV 8.9 L 9.1 L Immature Gran % (Auto) 0.2 0.3 Neut % (Auto) 64.6 76.3 H Lymph % (Auto) 23.9 14.5 L [place] % (Auto) 8.0 7.3 Eos % (Auto) 3.1 1.5 Baso % (Auto) 0.2 0.1 Lymph # (Auto) 1.2 1.3 [place] # (Auto) 0.4 0.7 Eos # (Auto) 0.2 0.1 Baso # (Auto) 0.0 0.0 Abs Immat Gran (auto) 0.01 0.03 Absolute Neuts (auto) 3.3 6.8 Absolute Nucleated RBC 0.000 0.000 Nucleated RBC % (auto) 0.0 0.0 ESR VBG pH 7.42 VBG pCO2 41 VBG pO2 54 VBG HCO3 27 H VBG O2 Saturation 85.0 VBG Base Excess 2.4 Sodium 140 139 Potassium 4.0 4.3 Chloride 109 H 107 Carbon Dioxide 24 25 Anion Gap 11 L 11 L BUN 15 12 Creatinine 0.73 0.65 Estim Creat Clear Calc 112.2 125.0 Estimated GFR > 60 > 60 POC Glucose Random Glucose 136 H 116 H Calcium 9.0 D 8.9 Phosphorus 3.1 3.2 Magnesium 1.7 1.8 Total Bilirubin 0.4 AST 23 ALT 33 H Alkaline Phosphatase 90 Total Protein 7.0 Albumin 3.9 3.9 Imaging Radiology Impressions: ITS Impressions Chest X-Ray 01/04/24 20:38 IMPRESSION: No radiographic evidence of acute cardiopulmonary disease. Head CT 01/04/24 23:50 IMPRESSION: No acute intracranial abnormality including hemorrhage, mass effect, hydrocephalus, or acute territorial edematous infarction. Chest X-Ray 01/06/24 16:45 IMPRESSION: 1. The endotracheal tube terminates at 4.3 cm above the sai. 2. No focal consolidation, pleural effusion or pneumothorax. Mental Status Exam Mental Status Exam Patient Appearance: Appropriate (on hospital gowns) Patient Orientation: Person and Situation Level of Consciousness: Awake Patient Behavior: Appropriate and Cooperative Mood Description: Calm Affect Description: Constricted Patient Cognition Impaired: Yes Ability to Follow Directions: Good Speech Pattern: Soft-Spoken and Poor Articulation Hallucinations: None Delusions: Not Present Thought Process: Slowed Thinking Thought Content: positive for Wanda and positive for Circumstantial Judgement: Fair Judgement and Insight: Good insight into her condition Medications Medications Current Medications Acetaminophen (Acetaminophen Supp 650 Mg Supp.Rect) 650 mg NV Q6H PRN PRN Reason: Pain, Mild (Pain Scale 1-3) Acetaminophen (Acetaminophen 325 Mg Tablet) 650 mg G-TUBE Q6H PRN PRN Reason: PAIN OR FEVER Aspirin (Aspirin 81 Mg Tab.Chew) 81 mg G-TUBE DAILY [facility] Last Admin: 01/07/24 08:47 Dose: 81 mg Baclofen (Baclofen 20 Mg Tablet) 20 mg G-TUBE QID [facility] Last Admin: 01/07/24 13:26 Dose: 20 mg Budesonide (Budesonide 0.5 Mg/2 Ml Ampul.Neb) 0.5 mg INHALE RBID [facility] Last Admin: 01/07/24 11:55 Dose: Not Given Clonazepam (Clonazepam 1 Mg Tablet) 1 mg G-TUBE BID [facility] Last Admin: 01/07/24 08:47 Dose: 1 mg Enoxaparin Sodium (Enoxaparin Sodium 40 Mg/0.4 Ml Syringe) 40 mg SUBCUT Q24H [facility] Last Admin: 01/07/24 00:59 Dose: 40 mg Norepinephrine Bitartrate (Levophed) 8 mg in 250 mls @ 0 mls/hr IV .Q0M [facility]; Protocol Last Titration: 01/07/24 14:04 Dose: 0 mcg/kg/min, 0 mls/hr Propofol (Diprivan) 1,000 mg in 100 mls @ 0 mls/hr IVCONT .Q0M [facility]; Protocol Last Titration: 01/07/24 14:30 Dose: Infused Valproic Acid 1,400 mg/ Sodium (Chloride) 114 mls @ 100 mls/hr IV ONCE [facility] Last Infusion: 01/07/24 14:48 Dose: Infused Levetiracetam (Levetiracetam Oral Soln 500 Mg/5 Ml) 2,000 mg G-TUBE BID [facility] Last Admin: 01/07/24 08:48 Dose: 2,000 mg Lorazepam (Lorazepam 1 Mg Tablet) 1 mg PO Q6H [facility] Last Admin: 01/07/24 10:33 Dose: 1 mg Melatonin (Melatonin 3 Mg Tablet) 6 mg PO BEDTIME PRN PRN Reason: Insomnia Midazolam HCl (Midazolam Hcl/Pf 2 Mg/2 Ml Vial) 2 mg IVPUSH Q15M PRN PRN Reason: Ventilator synchrony Last Admin: 01/07/24 08:39 Dose: 2 mg Non-Formulary Medication (Lansoprazole) 30 mg feeding tube DAILY [facility] Non-Formulary Medication (Zinc Oxide) 1 appl TOPICAL QSHIFT [facility] Phenobarbital (Phenobarbital 100 Mg Tablet) 100 mg PO BEDTIME [facility] Last Admin: 01/06/24 22:04 Dose: 100 mg Phenytoin (Phenytoin Oral Susp 100 Mg/4 Ml Oral.Susp) 300 mg PO TID [facility] Last Admin: 01/07/24 08:48 Dose: 300 mg Senna (Sennosides 8.6 Mg Tablet) 8.6 mg G-TUBE DAILY [facility] Last Admin: 01/07/24 08:47 Dose: 8.6 mg Sodium Chloride (0.9 % Sodium Chloride Flush 3 Ml Syringe) 3 ml IVFLUSH QSHIFT [facility] Last Admin: 01/07/24 08:48 Dose: 3 ml Tizanidine HCl (Tizanidine Hcl 4 Mg Tablet) 8 mg G-TUBE TID [facility] Last Admin: 01/07/24 08:47 Dose: 8 mg Allergies Allergies Allergy/AdvReac Type Severity Reaction Status Date / Time aripiprazole Allergy Unknown Unknown Verified 08/24/23 08:56 bee venom protein (honey bee) Allergy Unknown Anaphylaxis Verified 01/04/24 20:00 latex Allergy Unknown Hives Verified 01/04/24 20:00 shellfish derived Allergy Unknown Anaphylaxis Verified 01/04/24 20:00 trimethoprim Allergy Unknown Unknown Verified 08/24/23 08:56 banana Allergy Anaphylaxis Verified 01/04/24 20:00 Sulfa (Sulfonamide Allergy Unknown Verified 01/04/24 20:00 Antibiotics) Assessment & Plan Assessment & Plan (1) Anoxic encephalopathy: Status: Acute Code(s): G93.1 - Anoxic brain damage, not elsewhere classified (2) 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 As per collateral information by her father, she has a previous history of mental illmess with previous admissions into psychiatry. 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 The patent gave us consent to contact his father who is the HCP. Total time managing care of this patient today __30__ minutes. Patient educated on: therapeutic strategies Informed Consent: understands
--- NOTE | 2024-01-07 15:30 | P.PNCC_ITS ---
Subjective Subjective Date of Service: 01/07/24 Interval History: 28-year-old female with longstanding psychiatric history many evaluations and we did receive the data that I sent for last night from [facility] indicating on a video-assisted EEG that during an an episode of seizure-like activity there was no apparent EEG evidence of electrical abnormality and certainly raising questions about status epilepticus versus pseudoseizures but nonetheless [facility] discharged her on Keppra 2 g b.i.d. so she subsequently received a g of Dilantin and then a maintenance dose the episode abated last night after propofol again all nonspecific and purely on clinical basis and this morning she did very well and then we reduced and just about weaned her off the propofol entirely and she was bringing up her head little agitated state and then she started to develop seizure like activity different from the day before just focally involving the right side there was no facial involvement not the eyes not the not her the area around her her nasolabial fold lips etc. it was clinically different and I chose not to use propofol or a benzodiazepine I said less just try 20 milligrams/kilogram of IV valproic acid and she got about fpc into the dose about 10 milligrams/kilogram and it went away she woke up completely and very lucid was almost right away and started to write notes indicating that she desired to have the extubation and she was on pressure support all day no issue from a lung standpoint so she is now on a maintenance dose of valproic acid in addition and she had a successful easy extubation she is going to have continued feedings via the G-tube but the very 1st thing she communicated with the tube came out is that she wanted morphine at 10 mg so clearly lots of her behavioral issues are drug-seeking and adeno as a cause and she was evaluated by Psychiatry upon extubation who who felt that she was competent to make the decision for DNR DNI status was was chosen for her as a change and she allowed communication from Psychiatry to her father and that is where we stand now at this point no active medical issue Critical Care Time (minutes): 60 Physical Exam 2 Vital Signs: Vital Signs: Last Vital Signs Temp 100.4 F 01/07/24 14:00 Pulse 107 H 01/07/24 15:00 Resp 18 01/07/24 15:00 BP 112/63 01/07/24 15:00 Pulse Ox 99 01/07/24 15:00 O2 Del Method Room Air 02/16/24 15:00 O2 Flow Rate 2 01/06/24 07:26 FiO2 30 01/07/24 15:04 Oxygen Flow Rate 2 01/04/24 20:13 BMI result Body Mass Index 26.1 Awake doing well with left hemiplegia but appropriate cognitive function Lungs clear bilaterally Cardiac exam normal with no gallops no murmurs no neck vein distension good bilateral carotid upstrokes No peripheral rashes no acrocyanosis Her sed rate came back at 18 LISA is pending because there is a very questionable history of lupus just as there is a very questionable history of cystic fibrosis with a normal chest x-ray appearance Objective Data Labs 01/07/24 05:06 01/07/24 05:06 Labs: Laboratory Results - last 24 hr 01/06/24 01/06/24 01/06/24 19:28 20:17 20:18 WBC 5.2 RBC 3.81 L Hgb 11.7 L Hct 33.0 L MCV 86.6 MCH 30.7 MCHC 35.5 H RDW 11.9 Plt Count 199 MPV 8.9 L Immature Gran % (Auto) 0.2 Neut % (Auto) 64.6 Lymph % (Auto) 23.9 [place] % (Auto) 8.0 Eos % (Auto) 3.1 Baso % (Auto) 0.2 Lymph # (Auto) 1.2 [place] # (Auto) 0.4 Eos # (Auto) 0.2 Baso # (Auto) 0.0 Abs Immat Gran (auto) 0.01 Absolute Neuts (auto) 3.3 Absolute Nucleated RBC 0.000 Nucleated RBC % (auto) 0.0 ESR 18 VBG pH 7.39 VBG pCO2 38 VBG pO2 59 VBG HCO3 23 VBG O2 Saturation 88.0 VBG Base Excess -1.4 Sodium 140 Potassium 4.0 Chloride 109 H Carbon Dioxide 24 Anion Gap 11 L BUN 15 Creatinine 0.73 Estim Creat Clear Calc 112.2 Estimated GFR > 60 Random Glucose 136 H Calcium 9.0 D Phosphorus 3.1 Magnesium 1.7 Total Bilirubin AST ALT Alkaline Phosphatase Total Protein Albumin 3.9 01/07/24 01/07/24 05:02 05:06 WBC 8.9 RBC 3.75 L Hgb 11.5 L Hct 32.7 L MCV 87.2 MCH 30.7 MCHC 35.2 H RDW 11.9 Plt Count 245 MPV 9.1 L Immature Gran % (Auto) 0.3 Neut % (Auto) 76.3 H Lymph % (Auto) 14.5 L [place] % (Auto) 7.3 Eos % (Auto) 1.5 Baso % (Auto) 0.1 Lymph # (Auto) 1.3 [place] # (Auto) 0.7 Eos # (Auto) 0.1 Baso # (Auto) 0.0 Abs Immat Gran (auto) 0.03 Absolute Neuts (auto) 6.8 Absolute Nucleated RBC 0.000 Nucleated RBC % (auto) 0.0 ESR VBG pH 7.42 VBG pCO2 41 VBG pO2 54 VBG HCO3 27 H VBG O2 Saturation 85.0 VBG Base Excess 2.4 Sodium 139 Potassium 4.3 Chloride 107 Carbon Dioxide 25 Anion Gap 11 L BUN 12 Creatinine 0.65 Estim Creat Clear Calc 125.0 Estimated GFR > 60 Random Glucose 116 H Calcium 8.9 Phosphorus 3.2 Magnesium 1.8 Total Bilirubin 0.4 AST 23 ALT 33 H Alkaline Phosphatase 90 Total Protein 7.0 Albumin 3.9 Progress Note: A&P Assessment and plan (1) Anoxic encephalopathy: Status: Acute (2) Acute respiratory failure with hypoxemia: Status: Acute (3) 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 Dilaudid and I am going to maintain her antiseizure medications right now just on the basis of our clinical findings here and I think she can be downgraded to a regular medical floor and start with physical and occupational therapy to start to mobilize her Quality Stroke Does the patient have a stroke diagnosis?: No VTE Prior VTE?: No VTE Risk Level:: Medical - moderate - high VTE Device Contraindication: Treatment Not Indicated VTE Drug Contraindication: N/A - Med Ordered
[2024-01-07] MEDS: HYDROmorphone HCl 1 MG/ML SYRINGE IVPUSH ×2 (15:38→20:30)
[2024-01-08] VITALS (11 sets, daily range): BP systolic 105–122; BP diastolic 55–67; PULSE 70–121; RESP 16–20; TEMP 36.2–36.7; O2SAT 97–99
[2024-01-08] MEDS: HYDROmorphone HCl 1 MG/ML SYRINGE IVPUSH ×3 (00:50→09:39)
[2024-01-08] MEDS: Promethazine HCL 25 MG TABLET G-TUBE ×2 (00:58→11:38)
[2024-01-08] MEDS: Omeprazole/Na Bicarb Oral Susp 20 MG/10 ML UD Cup G-TUBE (05:25)
[2024-01-08] MEDS: LORazepam 1 MG TABLET PO ×3 (05:25→17:06)
[2024-01-08] MEDS: levETIRAcetam Oral Soln 500 MG/5 ML 2000 MG G-TUBE ×2 (08:45→21:37)
[2024-01-08] MEDS: TiZANidine HCL 4 MG TABLET 8 MG G-TUBE ×3 (08:46→21:38)
[2024-01-08] MEDS: Baclofen 20 MG TABLET G-TUBE ×4 (08:46→21:38)
[2024-01-08] MEDS: clonazePAM 1 MG TABLET G-TUBE ×2 (08:46→21:38)
[2024-01-08] MEDS: Phenytoin Oral Susp 100 MG/4 ML ORAL.SUSP 300 MG PO ×3 (08:46→21:37)
[2024-01-08] MEDS: Sennosides 8.6 MG TABLET G-TUBE (08:47)
[2024-01-08] MEDS: 0.9 % Sodium Chloride Flush 3 ML SYRINGE IVFLUSH ×3 (09:10→21:31)
--- NOTE | 2024-01-08 11:34 | P.PNIM_ITS ---
Subjective Subjective Date of Service: 01/08/24 Interval History: [facility] to go back to [facility] no further seizure-like episodes Review of Systems Review of Systems: Yes all other systems are reviewed and are negative Physical Exam 2 Vital Signs: Vital Signs: Last Vital Signs Temp 97.6 F 01/08/24 07:35 Pulse 78 01/08/24 10:07 Resp 18 01/08/24 10:07 BP 111/59 L 01/08/24 10:07 Pulse Ox 97 01/08/24 10:07 O2 Del Method Room Air 01/08/24 10:07 O2 Flow Rate 2 01/06/24 07:26 FiO2 30 01/07/24 15:04 Oxygen Flow Rate 2 01/04/24 20:13 BMI result Body Mass Index 26.1 Gen: in no acute distress HEENT: sclera anicteric, moist mucus membranes, R pupil dilated [chronic] Neck: supple Lungs: clear to auscultation bilaterally Heart: regular rate and rhythm, no murmurs Abd: soft, non-tender, non-distended Ext: no edema Skin: warm/well-perfused Neuro: alert and oriented x3, L hemiplegia Psych: appropriate affect Objective Data Active Medications Acetaminophen (Acetaminophen Supp 650 Mg Supp.Rect) 650 mg AL Q6H PRN PRN Reason: Pain, Mild (Pain Scale 1-3) Acetaminophen (Acetaminophen 325 Mg Tablet) 650 mg G-TUBE Q6H PRN PRN Reason: PAIN OR FEVER Baclofen (Baclofen 20 Mg Tablet) 20 mg G-TUBE QID [facility] Last Admin: 01/08/24 08:46 Dose: 20 mg Documented By: SHYANNE Budesonide (Budesonide 0.5 Mg/2 Ml Ampul.Neb) 0.5 mg INHALE RBID [facility] Last Admin: 01/08/24 05:01 Dose: Not Given Documented By: RIAZ Non-Admin Reason: Medication not given by RT Clonazepam (Clonazepam 1 Mg Tablet) 1 mg G-TUBE BID [facility] Last Admin: 01/08/24 08:46 Dose: 1 mg Documented By: SHYANNE Enoxaparin Sodium (Enoxaparin Sodium 40 Mg/0.4 Ml Syringe) 40 mg SUBCUT Q24H [facility] Last Admin: 01/07/24 23:53 Dose: 40 mg Documented By: RIAZ Hydromorphone HCl (Hydromorphone Hcl 1 Mg/Ml Syringe) 1 mg IVPUSH Q4H PRN; Protocol PRN Reason: Pain, Severe (Pain Scale 7-10) Last Admin: 01/08/24 09:39 Dose: 1 mg Documented By: SHYANNE Valproic Acid 1,400 mg/ Sodium (Chloride) 114 mls @ 100 mls/hr IV ONCE [facility] Last Infusion: 01/07/24 14:48 Dose: Infused Documented By: DOREEN Levetiracetam (Levetiracetam Oral Soln 500 Mg/5 Ml) 2,000 mg G-TUBE BID [facility] Last Admin: 01/08/24 08:45 Dose: 2,000 mg Documented By: SHYANNE Lorazepam (Lorazepam 1 Mg Tablet) 1 mg PO Q6H [facility] Last Admin: 01/08/24 05:25 Dose: 1 mg Documented By: RIAZ Melatonin (Melatonin 3 Mg Tablet) 6 mg PO BEDTIME PRN PRN Reason: Insomnia Omeprazole (Omeprazole/Na Bicarb Oral Susp 20 Mg/10 Ml Ud Cup) 20 mg G-TUBE DAILY@0630 [facility] Last Admin: 01/08/24 05:25 Dose: 20 mg Documented By: RIAZ Ondansetron HCl (Ondansetron Hcl 4 Mg/2 Ml Vial) 4 mg IVPUSH Q8H PRN PRN Reason: Nausea and Vomiting Phenytoin (Phenytoin Oral Susp 100 Mg/4 Ml Oral.Susp) 300 mg PO TID [facility] Last Admin: 01/08/24 08:46 Dose: 300 mg Documented By: SHYANNE Promethazine HCl (Promethazine Hcl 25 Mg Tablet) 25 mg G-TUBE Q6H PRN PRN Reason: Nausea and Vomiting Last Admin: 01/08/24 00:58 Dose: 25 mg Documented By: RIAZ Senna (Sennosides 8.6 Mg Tablet) 8.6 mg G-TUBE DAILY [facility] Last Admin: 01/08/24 08:47 Dose: 8.6 mg Documented By: SHYANNE Sodium Chloride (0.9 % Sodium Chloride Flush 3 Ml Syringe) 3 ml IVFLUSH QSHIFT [facility] Last Admin: 01/08/24 09:10 Dose: 3 ml Documented By: SHYANNE Tizanidine HCl (Tizanidine Hcl 4 Mg Tablet) 8 mg G-TUBE TID [facility] Last Admin: 01/08/24 08:46 Dose: 8 mg Documented By: SHYANNE Valproic Acid (Valproic Acid (As Sodium Salt) 250 Mg/5 Ml Solution) 250 mg PO TID [facility] Last Admin: 01/08/24 08:45 Dose: 250 mg Documented By: SHYANNE Zinc Oxide (Zinc Oxide 20% Ointment 28.35 Gm Tube) 1 appl TOPICAL QSHIFT [facility] Labs 01/07/24 05:06 01/07/24 05:06 Assessment and Plan (1) Seizure: Status: Acute Plan d4 28yo F [facility] resident with self-reported history of TBI/anoxic brain injury + L hemiplegia + intractable seizure disorder per pt's father/HCP, pt has dissociative identity disorder + multiple psychiatric diagnoses but not history of TBI or seizures; 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 Multiple EEGs including 2-day long continuous vEEG with no seizure activity. Neuro at [facility] advised to continue Keppra + Ativan prn. admitted here with breakthrough seizure and was intubated 01/06 for status epilepticus , extubated 01/07 and downgraded to floor 01/07 questionable seizure disorder vs PNES - Continue clonazepam, lorazepam, levetiracetam, phenytoin, valproate L hemiplegia - Per [facility] pt did have movement of LUE + LLE in past; to continue baclofen + tizanidine dissociative identity disorder - Psychiatry consult from 01/07 reviewed; pt has capacity to sign DNR/DNI. FEN - Continue PEG tube feeds, now at goal. VTE ppx - LMWH dispo - ready for return to [facility] but they did not hold her bed In my clinical judgment, the patient requires continued inpatient hospitalization for the following reasons: placement Total time managing care of this patient today: 35 minutes. Quality Stroke Does the patient have a stroke diagnosis?: No VTE Prior VTE?: No VTE Risk Level:: Medical - moderate - high VTE Device Contraindication: Treatment Not Indicated VTE Drug Contraindication: N/A - Med Ordered
[2024-01-08] MEDS: HYDROmorphone HCl 1 MG/ML SYRINGE 0.5 MG IVPUSH ×2 (14:10→21:32)
--- NOTE | 2024-01-08 15:55 | MHC.CM.PN ---
PT MEDICALLY CLEARED TO DC, HOWEVER [facility] HAS REQUESTED SHE REMAIN INPATIENT UNTIL WEDNESDAY TO ENSURE MEDICAL STABILITY
[2024-01-08] MEDS: Zinc Oxide 20% Ointment 28.35 GM TUBE 1 APPL TOPICAL ×2 (17:12→23:56)
[2024-01-08] MEDS: Budesonide 0.5 MG/2 ML AMPUL.NEB INHALE (19:48)
[2024-01-09] VITALS (7 sets, daily range): BP systolic 110–130; BP diastolic 66–91; PULSE 74–105; RESP 16–20; TEMP 36.3–36.8; O2SAT 98–100; BMI 29.9
[2024-01-09] MEDS: LORazepam 1 MG TABLET PO ×3 (00:02→16:56)
[2024-01-09] MEDS: Enoxaparin Sodium 40 MG/0.4 ML SYRINGE SUBCUT (00:03)
[2024-01-09] MEDS: HYDROmorphone HCl 0.5 MG/0.5 ML SYRINGE IVPUSH (00:23)
[2024-01-09] MEDS: Morphine Sulfate Oral Sol 10 MG/5 ML SOLUTION G-TUBE ×6 (01:26→21:22)
[2024-01-09] MEDS: ondansetron HCL 4 MG/2 ML VIAL IVPUSH (04:26)
[2024-01-09] MEDS: Omeprazole/Na Bicarb Oral Susp 20 MG/10 ML UD Cup G-TUBE (05:21)
[2024-01-09] MEDS: Budesonide 0.5 MG/2 ML AMPUL.NEB INHALE ×2 (07:47→20:25)
--- NOTE | 2024-01-09 07:50 | HO.PM.IMPN ---
Subjective Subjective Date of Service: 01/09/24 Interval History: wants to go back to [facility], still having psychogenic vs epilecptic seizures. See event note. Review of Systems Review of Systems: Yes all other systems are reviewed and are negative Physical Exam Vital Signs: Vital Signs: Last Vital Signs Temp 98.2 F 01/09/24 03:10 Pulse 78 01/09/24 07:49 Resp 18 01/09/24 07:49 BP 130/75 01/09/24 03:10 Pulse Ox 98 01/09/24 03:10 O2 Del Method Room Air 01/09/24 03:10 O2 Flow Rate 2 01/06/24 07:26 FiO2 30 01/07/24 15:04 Oxygen Flow Rate 2 01/04/24 20:13 BMI result Body Mass Index 29.9 Constitutional - Awake and Alert, No apparent distress Eyes - PERRLA, EOMI Cardiovascular - S1S2, RRR, No edema Respiratory - Normal lung expansion, Normal respiratory effort, No respiratory distress, CTA bilaterally Gastrointestinal - NT / ND; +BS; No rebound or guarding Extremities - no calf tenderness bilaterally, no swelling Skin - Warm/Dry Neurological - Sleepy but oriented x3, L hemiplegia Psychological - Appropriate affect Neuro: Other: She is very drowsy with eyes half open. When I prompted her with her name, she opened her eyes made and I contact. There was no abnormal movement at that point. Her left hand was hyperflexed. I held her right hand, and at that point she started to have movement of that arm and towards profession. I put it down and they stopped. A minute later, she lifted up wanted me to hold it again. When I held it again, it started to move similarly but in a different direction. She was not responding to verbal stimuli or answering questions but according to the tendon sitting with her, she has been talking. She has been given sedation after seizure-like episode this morning. Planters were flat. Objective Data Active Medications Acetaminophen (Acetaminophen Supp 650 Mg Supp.Rect) 650 mg CO Q6H PRN PRN Reason: Pain, Mild (Pain Scale 1-3) Acetaminophen (Acetaminophen 325 Mg Tablet) 650 mg G-TUBE Q6H PRN PRN Reason: PAIN OR FEVER Baclofen (Baclofen 20 Mg Tablet) 20 mg G-TUBE QID [facility] Last Admin: 02/17/24 21:38 Dose: 20 mg Documented By: RIAZ Budesonide (Budesonide 0.5 Mg/2 Ml Ampul.Neb) 0.5 mg INHALE RBID [facility] Last Admin: 01/09/24 07:47 Dose: 0.5 mg Documented By: NILE Clonazepam (Clonazepam 1 Mg Tablet) 1 mg G-TUBE BID [facility] Last Admin: 01/08/24 21:38 Dose: 1 mg Documented By: RIAZ Enoxaparin Sodium (Enoxaparin Sodium 40 Mg/0.4 Ml Syringe) 40 mg SUBCUT Q24H [facility] Last Admin: 01/09/24 00:03 Dose: 40 mg Documented By: RIAZ Valproic Acid 1,400 mg/ Sodium (Chloride) 114 mls @ 100 mls/hr IV ONCE [facility] Last Infusion: 01/07/24 14:48 Dose: Infused Documented By: DOREEN Levetiracetam (Levetiracetam Oral Soln 500 Mg/5 Ml) 2,000 mg G-TUBE BID [facility] Last Admin: 01/08/24 21:37 Dose: 2,000 mg Documented By: RIAZ Lorazepam (Lorazepam 1 Mg Tablet) 1 mg PO Q6H [facility] Last Admin: 01/09/24 05:20 Dose: 1 mg Documented By: HALEY Melatonin (Melatonin 3 Mg Tablet) 6 mg PO BEDTIME PRN PRN Reason: Insomnia Morphine Sulfate (Morphine Sulfate Oral Maye 10 Mg/5 Ml Solution) 10 mg G-TUBE Q4H PRN PRN Reason: Pain, Severe (Pain Scale 7-10) Last Admin: 01/09/24 05:11 Dose: 10 mg Documented By: HALEY Omeprazole (Omeprazole/Na Bicarb Oral Susp 20 Mg/10 Ml Ud Cup) 20 mg G-TUBE DAILY@0630 [facility] Last Admin: 01/09/24 05:21 Dose: 20 mg Documented By: HALEY Ondansetron HCl (Ondansetron Hcl 4 Mg/2 Ml Vial) 4 mg IVPUSH Q8H PRN PRN Reason: Nausea and Vomiting Last Admin: 01/09/24 04:26 Dose: 4 mg Documented By: HALEY Phenytoin (Phenytoin Oral Susp 100 Mg/4 Ml Oral.Susp) 300 mg PO TID [facility] Last Admin: 01/08/24 21:37 Dose: 300 mg Documented By: RIAZ Promethazine HCl (Promethazine Hcl 25 Mg Tablet) 25 mg G-TUBE Q6H PRN PRN Reason: Nausea and Vomiting Last Admin: 01/08/24 11:38 Dose: 25 mg Documented By: SHYANNE Senna (Sennosides 8.6 Mg Tablet) 8.6 mg G-TUBE DAILY [facility] Last Admin: 01/08/24 08:47 Dose: 8.6 mg Documented By: SHYANNE Sodium Chloride (0.9 % Sodium Chloride Flush 3 Ml Syringe) 3 ml IVFLUSH [facility] Last Admin: 01/08/24 21:31 Dose: 3 ml Documented By: RIAZ Tizanidine HCl (Tizanidine Hcl 4 Mg Tablet) 8 mg G-TUBE TID [facility] Last Admin: 01/08/24 21:38 Dose: 8 mg Documented By: RIAZ Valproic Acid (Valproic Acid (As Sodium Salt) 250 Mg/5 Ml Solution) 250 mg PO TID [facility] Last Admin: 01/08/24 21:38 Dose: 250 mg Documented By: RIAZ Zinc Oxide (Zinc Oxide 20% Ointment 28.35 Gm Tube) 1 appl TOPICAL [facility] Last Admin: 01/08/24 23:56 Dose: 1 appl Documented By: RIAZ Labs 01/07/24 05:06 01/07/24 05:06 Assessment and Plan (1) Seizure: Status: Acute Plan d4 28yo F [facility] resident with self-reported history of TBI/anoxic brain injury + L hemiplegia + intractable seizure disorder per pt's father/HCP, pt has dissociative identity disorder + multiple psychiatric diagnoses but not history of TBI or seizures; see braille operator note from 01/06 for details has been admitted to [facility] neuro ICU for seizure requiring intubation. Multiple EEGs including 2-day long continuous vEEG with no seizure activity. Neuro at [facility] advised to continue Keppra + Ativan prn. admitted here with breakthrough seizure and was intubated 01/06 for status epilepticus , extubated 01/07 and downgraded to floor 01/07 Pt continues to exhibit seizure-like activity. Discussed with ICU and neurology. No evidence of epileptic seizure activity. Pt is aware of corneal reflex testing and making vague statements about what has happened during her seizures but denies any memory of the incident when directly asked Made Si statement. On section 12 with care team consult pending #questionable seizure disorder vs PNES -evaluated by neurology. Stop all anti-epileptic medications, continue benzos -was monitored on vEEG at [facility] with seizure like activity by patient without any seizure activity on eeg -sitter and camera at bedside #SI statement -pt trying to leave [facility] (deemed to have capacity by psych 01/05) and advised that we have no where to send her and advised that she would be homeless in the cold. She stated that I wouldnt be homeless, I would only need to freeze to if Im outside one night witnessed by this provider, nursing glazier supervisor, charge nurse, welfare case worker, and RN -Placed on [email or web address], signed by Dr. Bobby -care team consult pending L hemiplegia - Per [facility] pt did have movement of LUE + LLE in past; to continue baclofen + tizanidine dissociative identity disorder - Psychiatry consult from 01/07 reviewed; pt has capacity to sign DNR/DNI. FEN - Continue PEG tube feeds, now at goal. VTE ppx - LMWH dispo - ready for return to [facility] but they did not hold her bed In my clinical judgment, the patient requires continued inpatient hospitalization for the following reasons: placement, SI Total time managing care of this patient today: 60 minutes. Quality Stroke Does the patient have a stroke diagnosis?: No VTE Prior VTE?: No VTE Risk Level:: Medical - moderate - high VTE Device Contraindication: Treatment Not Indicated VTE Drug Contraindication: N/A - Med Ordered
[2024-01-09] MEDS: Phenytoin Oral Susp 100 MG/4 ML ORAL.SUSP 300 MG PO (09:29)
[2024-01-09] MEDS: levETIRAcetam Oral Soln 500 MG/5 ML 2000 MG G-TUBE (09:30)
[2024-01-09] MEDS: TiZANidine HCL 4 MG TABLET 8 MG G-TUBE ×3 (09:30→21:04)
[2024-01-09] MEDS: Baclofen 20 MG TABLET G-TUBE (09:30)
[2024-01-09] MEDS: clonazePAM 1 MG TABLET G-TUBE ×2 (09:31→21:04)
[2024-01-09] MEDS: Zinc Oxide 20% Ointment 28.35 GM TUBE 1 APPL TOPICAL ×2 (09:32→16:54)
[2024-01-09] MEDS: 0.9 % Sodium Chloride Flush 3 ML SYRINGE IVFLUSH ×2 (09:32→16:54)
[2024-01-09] MEDS: Sennosides 8.6 MG TABLET G-TUBE (09:44)
[2024-01-09] MEDS: LORazepam 2 MG/ML VIAL IVPUSH (10:09)
[2024-01-09 10:18] LABS: Glucose, Whole Blood 156 mg/dL (60-115)
--- NOTE | 2024-01-09 10:43 | PM.EVENT ---
Event Note Date of Service: 01/09/24 Event Note: AUTOMATED ACCESS SYSTEMS TECHNICIAN called at 1004 due to pt seizuring. VSS, no hypoxia. Noted to be unresponsive, consulsions, clenched fists. Incontinent of urine, no tongue bite. Given 2mg IV ativan with cessation of convulsions after about 3 minutes of seizure activity. Remains unresponsive, drooling. R pupil chronically dilated, L pupil reactive to light. Began convulsing again with dilation of the L pupil. No response to corneal reflex. No further incontinence. Call placed to ICU who felt presentation more consistent with pseudoseizure. Did give additional 5mg IV versed. Call placed to neurology recommending 24h video EEG monitoring. However, pt just discharged from [facility] 01/03 for pseudoseizures witnessed on vEEG. Dr. Herrera to come in to evaluate patient. No additional med orders placed at this time. Pt transferred to med/tele for closer observation. Continue telemetry monitoring. Head CT ordered Administered 300mg phenytoin, 250 mg depakote, 2g keppra, 1mg klonipin prior to seizure onset. Time Spent With Patient Time: Total time managing care of this patient today ____ minutes.
--- NOTE | 2024-01-09 11:18 | PC.NURSE ---
1002- This RN notified by patient mine safety director of a change in the patient's status. Patient received morning medications prior to this event- see MAR for documentation. Patient was verbal, coherent, and conversing with this RN appropriately when receiving morning medications. This RN called patient's name and performed a sternal rub with no response from patient. Patient's presenting with twitching facial movements. Seizure began at approximately 1002. Rapid Response Team called at 1004. Nursing casework supervisor present at bedside and obtained vital signs- 123/62, HR 94, SpO2 100% on room air. Primary provider ALEJANDRO Knowles and rapid response team at bedside at 1005. Next set of vitals at 1008- 113/69, HR 96, SpO2 100% on room air. 2mg IV ativan ordered and administered at 1009. Vitals at 1010- 128/78, HR 81, SpO2 100 on room air. Sinus rhythm in 80's at 1010. Finger stick glucose 156 at 1012. Seizure declared complete by providers at 1012. This RN remained at bedside monitoring patient's status. 1018 vitals 109/67/HR 74, SpO2 97% on room air. At approximately 1020, second seizure began. Patient displaying full body jerking with facial twitching. COUNSELING PROGRAM LEADER called with primary provider ALEJANDRO Knowles returned to bedside. Right and left eyes both dilated upon assessment. 1022 vitals- 102/56, HR 100, SpO2 98% on room air. Providers [facility] This RN continued monitoring vitals: 1027- 113/59, HR 105, sinus tach on tele monitor, SpO2 95% on room air. STAT head/brain CT without contrast ordered. 1035 vitals- 92/54, HR 76, SpO2 98% on room air and respiratory rate of 16, even and unlabored. Prior respiratory rates difficult to accurately obtain due to patient's body movements. Transported to CT scan by this RN and counseling program leader at 1045 with most recent set of vital signs stable at 94/52, HR 75, SpO2 98% on room air, sinus rhythm on tele monitor. This RN and counseling program leader remained with patient during scan and transported patient from CT scan to Med-Tele room 379 at 1100 with arrival of 1103. Care transferred to NEELAM Gentile and report given.
[2024-01-09] MEDS: Midazolam HCl/PF 2 MG/2 ML VIAL 5 MG IVPUSH (11:35)
--- NOTE | 2024-01-09 12:06 | PM.NEUROCN ---
History of Present Illness Data of Consult Service Date: 01/09/24 Primary Care Provider: Clayton Mata DO HPI Reason for consult: Seizure disorder As per her chart, she is 28-year-old female with history of cystic fibrosis, anoxic brain injury with left-sided hemiplegia, mood disorder, dystonia, urinary incontinence, gastroparesis status post G-tube, opiate dependence, seizure disorder, SLE who was sent from nursing facility for evaluation of seizures. I could not independently confirmed these problems. Apparently she was admitted [facility] where EEG revealed that seizure-like spells she was having were not epileptic. A recent EEG in [facility] was normal. She was unable to provide any history. Review of Systems Review of Systems: [facility] be [facility] Past Medical History Medical History Cystic fibrosis SVT (supraventricular tachycardia) Atrial fibrillation POTS (postural orthostatic tachycardia syndrome) Jackie-Danlos syndrome Anemia Lupus Refractory epilepsy Diabetic gastroparesis Social History Social History Household Members: Other Housing: Correction Do you presently have visiting nurse or other home services: No (from lt) Alcohol intake: never Comment: 1:[address] Patient Tobacco Use Status: Never used Tobacco service: No Meds Allergies Allergy/AdvReac Type Severity Reaction Status Date / Time aripiprazole Allergy Unknown Unknown Verified 08/24/23 08:56 bee venom protein (honey bee) Allergy Unknown Anaphylaxis Verified 01/04/24 20:00 latex Allergy Unknown Hives Verified 01/04/24 20:00 shellfish derived Allergy Unknown Anaphylaxis Verified 01/04/24 20:00 trimethoprim Allergy Unknown Unknown Verified 08/24/23 08:56 banana Allergy Anaphylaxis Verified 01/04/24 20:00 Sulfa (Sulfonamide Allergy Unknown Verified 01/04/24 20:00 Antibiotics) Active Medications: Current Medications Acetaminophen (Acetaminophen Supp 650 Mg Supp.Rect) [address] Q6H PRN PRN Reason: Pain, Mild (Pain Scale 1-3) Acetaminophen (Acetaminophen 325 Mg Tablet) 650 mg G-TUBE Q6H PRN PRN Reason: PAIN OR FEVER Baclofen (Baclofen 20 Mg Tablet) 20 mg G-TUBE QID ZAMZAM Last Admin: 01/09/24 09:30 Dose: 20 mg Budesonide (Budesonide 0.5 Mg/2 Ml Ampul.Neb) 0.5 mg INHALE RBID [facility] Last Admin: 01/09/24 07:47 Dose: 0.5 mg Clonazepam (Clonazepam 1 Mg Tablet) 1 mg G-TUBE BID [facility] Last Admin: 01/09/24 09:31 Dose: 1 mg Enoxaparin Sodium (Enoxaparin Sodium 40 Mg/0.4 Ml Syringe) 40 mg SUBCUT Q24H [facility] Last Admin: 01/09/24 00:03 Dose: 40 mg Valproic Acid 1,400 mg/ Sodium (Chloride) 114 mls @ 100 mls/hr IV ONCE [facility] Last Infusion: 01/07/24 14:48 Dose: Infused Levetiracetam (Levetiracetam Oral Soln 500 Mg/5 Ml) 2,000 mg G-TUBE BID [facility] Last Admin: 01/09/24 09:30 Dose: 2,000 mg Lorazepam (Lorazepam 1 Mg Tablet) 1 mg PO Q6H [facility] Last Admin: 01/09/24 11:48 Dose: Not Given Melatonin (Melatonin 3 Mg Tablet) 6 mg PO BEDTIME PRN PRN Reason: Insomnia Morphine Sulfate (Morphine Sulfate Oral Maye 10 Mg/5 Ml Solution) 10 mg G-TUBE Q4H PRN PRN Reason: Pain, Severe (Pain Scale 7-10) Last Admin: 01/09/24 09:31 Dose: 10 mg Omeprazole (Omeprazole/Na Bicarb Oral Susp 20 Mg/10 Ml Ud Cup) 20 mg G-TUBE DAILY@0630 [facility] Last Admin: 01/09/24 05:21 Dose: 20 mg Ondansetron HCl (Ondansetron Hcl 4 Mg/2 Ml Vial) 4 mg IVPUSH Q8H PRN PRN Reason: Nausea and Vomiting Last Admin: 01/09/24 04:26 Dose: 4 mg Phenytoin (Phenytoin Oral Susp 100 Mg/4 Ml Oral.Susp) 300 mg PO TID [facility] Last Admin: 01/09/24 09:29 Dose: 300 mg Promethazine HCl (Promethazine Hcl 25 Mg Tablet) 25 mg G-TUBE Q6H PRN PRN Reason: Nausea and Vomiting Last Admin: 01/08/24 11:38 Dose: 25 mg Senna (Sennosides 8.6 Mg Tablet) 8.6 mg G-TUBE DAILY [facility] Last Admin: 01/09/24 09:44 Dose: 8.6 mg Sodium Chloride (0.9 % Sodium Chloride Flush 3 Ml Syringe) 3 ml IVFLUSH [facility] Last Admin: 01/09/24 09:32 Dose: 3 ml Tizanidine HCl (Tizanidine Hcl 4 Mg Tablet) 8 mg G-TUBE TID [facility] Last Admin: 01/09/24 09:30 Dose: 8 mg Valproic Acid (Valproic Acid (As Sodium Salt) 250 Mg/5 Ml Solution) 250 mg PO TID [facility] Last Admin: 01/09/24 09:30 Dose: 250 mg Zinc Oxide (Zinc Oxide 20% Ointment 28.35 Gm Tube) 1 appl TOPICAL [facility] Last Admin: 01/09/24 09:32 Dose: 1 appl Home Medications Medication Instructions Recorded Confirmed Last Taken Type acetaminophen 325 mg tablet 650 mg feeding tube Q6H PRN PAIN 01/04/24 01/04/24 Unknown History OR FEVER albuterol sulfate 2.5 mg/3 mL 2.5 mg inhalation Q6H PRN Wheezing 01/04/24 01/04/24 Unknown History (0.083 %) solution for nebulization aspirin 81 mg chewable tablet 81 mg feeding tube DAILY 01/04/24 01/04/24 Unknown History baclofen 20 mg tablet 20 mg feeding tube QID 01/04/24 01/04/24 Unknown History budesonide 1 mg/2 mL suspension 0.5 mg inhalation BID 01/04/24 01/04/24 Unknown History for nebulization clonazepam 0.5 mg tablet 1 mg feeding tube BID 01/04/24 01/04/24 Unknown History ibuprofen 200 mg tablet 600 mg feeding tube Q8H PRN 01/04/24 01/04/24 Unknown History Moderate Pain (Scale Score 5-6) lansoprazole 30 mg capsule,delayed 30 mg feeding tube DAILY 01/04/24 01/04/24 Unknown History release levetiracetam 100 mg/mL oral 1,000 mg feeding tube BID 01/04/24 01/04/24 Unknown History solution lorazepam 2 mg/mL injection 1 mg IM Q5M PRN Seizures 01/04/24 01/04/24 Unknown History solution morphine 10 mg/5 mL oral solution 10 mg feeding tube Q4H PRN Severe 01/04/24 01/04/24 Unknown History Pain (Scale Score 7-10) promethazine 6.25 mg/5 mL oral 25 mg feeding tube Q6H PRN Nausea 01/04/24 01/04/24 Unknown History syrup And Vomiting sennosides 8.6 mg tablet (senna) 8.6 mg feeding tube DAILY 01/04/24 01/04/24 Unknown History tizanidine 4 mg capsule 8 mg feeding tube TID 01/04/24 01/04/24 Unknown History zinc oxide 15 % topical cream 1 appl topical QSHIFT 01/04/24 01/04/24 Unknown History Physical Exam Vital Signs: Vital Signs: Last Vital Signs Temp 97.3 F 01/09/24 11:27 Pulse 105 H 01/09/24 11:27 Resp 20 01/09/24 11:27 BP 129/91 H 01/09/24 11:27 Pulse Ox 99 01/09/24 11:27 O2 Del Method Room Air 01/09/24 11:27 O2 Flow Rate 2 01/06/24 07:26 FiO2 30 01/07/24 15:04 Oxygen Flow Rate 2 01/04/24 20:13 BMI result Body Mass Index 29.9 Neuro: Other: She is very drowsy with eyes half open. When I prompted her with her name, she opened her eyes made and I contact. There was no abnormal movement at that point. Her left hand was hyperflexed. I held her right hand, and at that point she started to have movement of that arm and towards profession. I put it down and they stopped. A minute later, she lifted up wanted me to hold it again. When I held it again, it started to move similarly but in a different direction. She was not responding to verbal stimuli or answering questions but according to the tendon sitting with her, she has been talking. She has been given sedation after seizure-like episode this morning. Planters were flat. Results Labs 01/07/24 05:06 01/07/24 05:06 Labs: Head CT revealed a small right thalamic area hypodensity probably an ischemic infarct of chronic nature but otherwise no significant abnormality. Assessment and Plan (1) Seizure: Status: Acute 28 years old woman with complex medical and neuropsychiatric history including diagnosis of SLE, a nonepileptic spells. At least what I see from examination today, these movements did not suggest epilepsy and suggested a psychological reason. My recommendation at this time is to hold all sedation and do not administer any new antiepileptic. With EEG evidence of no epileptic spells, I am not sure why she needed levetiracetam or even phenobarbital. We would have to readdress all these issues. Ideally should be done in a facility with EEG available to analyze any seizure-like episode but apparently that was practically difficulty at this time. I recommend stopping levetiracetam, phenobarbital, tizanidine, and baclofen. Continue clonazepam 1 mg twice a day for now, which can also be decreased or tapered off depending upon her future clinical picture. These medicines or at least some of them can be readministered if needed but at this time her clinical picture is too murky. As far as urinary incontinence is concerned, she might have other reasons for that especially in her bed-bound situation. Her psychological status can only be evaluated if she was not on too much sedation, which probably was the main problem in this case. Procedures Date of Service Date of Service: 01/09/24
[2024-01-09] MEDS: Acetaminophen 325 MG TABLET 650 MG G-TUBE (14:54)
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
--- NOTE | 2024-01-09 16:25 | PC.NURSE ---
TIME 15:15. Pt transfer from [facility] after her seizure activity. Patient became agitated and tried to get out of bed, Non-ambulatory, Left sided Saud. Security called, Provider notified. Pt combative, verbally abusive to staff. Clinical Sup notified and at bedside. Pt stated she wanted to sign out AMA and go outside and freeze to . This statement was heard by staff and section 12 was filled out and patient unable to leave AMA. Pt eventually calmed down after an hour of staff in the room attempting to redirect.
--- NOTE | 2024-01-09 18:23 | PC.NURSE ---
Pt stated to this bond underwriter that she apologies for the way she acted earlier.
[2024-01-10] VITALS (8 sets, daily range): BP systolic 101–135; BP diastolic 52–78; PULSE 73–97; RESP 16–20; TEMP 36.1–36.7; O2SAT 96–99
[2024-01-10] MEDS: Acetaminophen 325 MG TABLET 650 MG G-TUBE (00:20)
[2024-01-10] MEDS: LORazepam 1 MG TABLET PO ×4 (00:20→20:35)
[2024-01-10] MEDS: Enoxaparin Sodium 40 MG/0.4 ML SYRINGE SUBCUT (00:20)
[2024-01-10] MEDS: Morphine Sulfate Oral Sol 10 MG/5 ML SOLUTION G-TUBE ×5 (00:35→20:36)
[2024-01-10] MEDS: 0.9 % Sodium Chloride Flush 3 ML SYRINGE IVFLUSH ×3 (00:51→16:45)
[2024-01-10] MEDS: Zinc Oxide 20% Ointment 28.35 GM TUBE 1 APPL TOPICAL ×2 (00:51→16:45)
[2024-01-10] MEDS: Omeprazole/Na Bicarb Oral Susp 20 MG/10 ML UD Cup G-TUBE (05:11)
--- NOTE | 2024-01-10 07:32 | P.PNIM_ITS ---
Subjective Subjective Date of Service: 01/10/24 Interval History: Seen in follow up for psychogenic seizures Interval history: [facility] and [facility] records reviewed. No recent EEG (dating to 2016 on available records) suggesting epileptic seizure disorder. Anti-epilptic meds discontinued, no further seizure-like events reported. Has been intermittently agitated, more alert today Review of Systems Review of Systems: Yes all other systems are reviewed and are negative Physical Exam 2 Vital Signs: Vital Signs: Last Vital Signs Temp 97.7 F 01/10/24 07:22 Pulse 88 01/10/24 07:22 Resp 20 01/10/24 07:22 BP 118/70 01/10/24 07:22 Pulse Ox 98 01/10/24 07:22 O2 Del Method Room Air 01/10/24 07:22 O2 Flow Rate 2 01/06/24 07:26 FiO2 30 01/07/24 15:04 Oxygen Flow Rate 2 01/04/24 20:13 BMI result Body Mass Index 29.9 Constitutional - Awake and Alert, No apparent distress Eyes - PERRLA, EOMI Cardiovascular - S1S2, RRR, No edema Respiratory - Normal lung expansion, Normal respiratory effort, No respiratory distress, CTA bilaterally Gastrointestinal - NT / ND; +BS; No rebound or guarding Extremities - no calf tenderness bilaterally, no swelling Skin - Warm/Dry Neurological - Alert and oriented x3, L hemiplegia Psychological - Appropriate affect Objective Data Active Medications Acetaminophen (Acetaminophen Supp 650 Mg Supp.Rect) 650 mg [place] Q6H PRN PRN Reason: Pain, Mild (Pain Scale 1-3) Acetaminophen (Acetaminophen 325 Mg Tablet) 650 mg G-TUBE Q6H PRN PRN Reason: PAIN OR FEVER Last Admin: 01/10/24 00:20 Dose: 650 mg Documented By: BRENNAN Budesonide (Budesonide 0.5 Mg/2 Ml Ampul.Neb) 0.5 mg INHALE RBID [facility] Last Admin: 01/09/24 20:25 Dose: 0.5 mg Documented By: МАРИНА Enoxaparin Sodium (Enoxaparin Sodium 40 Mg/0.4 Ml Syringe) 40 mg SUBCUT Q24H [facility] Last Admin: 01/10/24 00:20 Dose: 40 mg Documented By: BRENNAN Valproic Acid 1,400 mg/ Sodium (Chloride) 114 mls @ 100 mls/hr IV ONCE [facility] Last Infusion: 01/07/24 14:48 Dose: Infused Documented By: DOREEN Lorazepam (Lorazepam 1 Mg Tablet) 1 mg PO Q6H [facility] Last Admin: 01/10/24 05:11 Dose: 1 mg Documented By: BRENNAN Melatonin (Melatonin 3 Mg Tablet) 6 mg PO BEDTIME PRN PRN Reason: Insomnia Morphine Sulfate (Morphine Sulfate Oral Maye 10 Mg/5 Ml Solution) 10 mg G-TUBE Q4H PRN PRN Reason: Pain, Severe (Pain Scale 7-10) Last Admin: 01/10/24 05:11 Dose: 10 mg Documented By: BRENNAN Omeprazole (Omeprazole/Na Bicarb Oral Susp 20 Mg/10 Ml Ud Cup) 20 mg G-TUBE DAILY@0630 [facility] Last Admin: 01/10/24 05:11 Dose: 20 mg Documented By: BRENNAN Ondansetron HCl (Ondansetron Hcl 4 Mg/2 Ml Vial) 4 mg IVPUSH Q8H PRN PRN Reason: Nausea and Vomiting Last Admin: 01/09/24 04:26 Dose: 4 mg Documented By: HALEY Promethazine HCl (Promethazine Hcl 25 Mg Tablet) 25 mg G-TUBE Q6H PRN PRN Reason: Nausea and Vomiting Last Admin: 01/08/24 11:38 Dose: 25 mg Documented By: SHYANNE Senna (Sennosides 8.6 Mg Tablet) 8.6 mg G-TUBE DAILY [facility] Last Admin: 01/09/24 09:44 Dose: 8.6 mg Documented By: SHYANNE Sodium Chloride (0.9 % Sodium Chloride Flush 3 Ml Syringe) 3 ml IVFLUSH [facility] Last Admin: 01/10/24 00:51 Dose: 3 ml Documented By: BRENNAN Tizanidine HCl (Tizanidine Hcl 4 Mg Tablet) 8 mg G-TUBE TID [facility] Last Admin: 01/09/24 21:04 Dose: 8 mg Documented By: BRENNAN Zinc Oxide (Zinc Oxide 20% Ointment 28.35 Gm Tube) 1 appl TOPICAL [facility] Last Admin: 01/10/24 00:51 Dose: 1 appl Documented By: BRENNAN Labs 01/07/24 05:06 01/07/24 05:06 Labs: Laboratory Results - last 24 hr 01/09/24 10:12 POC Glucose 156 H Assessment and Plan (1) Seizure: Status: Acute Plan d4 28yo F [facility] resident with self-reported history of TBI/anoxic brain injury + L hemiplegia + intractable seizure disorder per pt's father/HCP, pt has dissociative identity disorder + multiple psychiatric diagnoses but not history of TBI or seizures; see transit planner note from 01/06 for details has been admitted to [facility] for seizure requiring intubation. Multiple EEGs including 2-day long continuous vEEG with no seizure activity. Neuro at [facility] advised to continue Keppra + Ativan prn. admitted here with breakthrough seizure and was intubated 01/06 for status epilepticus , extubated 01/07 and downgraded to floor 01/07 Pt continues to exhibit seizure-like activity 01/09. Discussed with ICU and neurology. No evidence of epileptic seizure activity. Pt is aware of corneal reflex testing and making vague statements about what has happened during her seizures but denies any memory of the incident when directly asked Made Si statement 01/09, placed on section 12. Per care team, no inpt psych needed Antiepileptics discontinued 01/09 at recommendation of neurology with increased alertness and no further seziure activity exhibited by patient, though very upset medications discontinue Continues stating she is dnr/dni but will cry out of concern for her seizures not being treated. Advised there is no evidence of seizure activity on review of all available EEG studies ([facility], [facility], [facility] dating to 2015). She now wishes to amend her MOLST form to a do not transfer to hospital despite her concern about medications not being continued #PNES -admitted with status epilepticus and was intubated. Per Dr. Hassan with negative EEG on 01/05, no epileptic seizures, these are PNES -evaluated by neurology. Stop all anti-epileptic medications, discontinue benzos and narcotics -was monitored on vEEG at [facility] with seizure like activity by patient without any seizure activity on eeg -[facility] Records reviewed with neurology- Reviewed 3 EEG's from [facility] dating to 2015 without any evidence of epileptic seizure activity. Consult notes from [facility] Neurology reviewed again without clear evidence of epileptic seizure activity -Keppra, Depakote, phenytoin, baclofen discontinued. Clonazepam discontinued 2/18. Lorazepam dose reduced, continue taper per neurology -no recurrent seizure activity since above meds dc'd -psychiatry consult -sitter and camera at bedside #SI statement -pt trying to leave ama (deemed to have capacity by psych 01/05) and advised that we have no where to send her and advised that she would be homeless in the cold. She stated that I wouldnt be homeless, I would only need to freeze to if Im outside one night witnessed by this provider, nursing specialty manufacturing supervisor, charge nurse, dependency case manager, and RN -Placed on [id number], signed by Dr. Bobby -Per care team, no inpt psych needed -Initial psych evaluation deemed patient to have capacity to make medical decisions. psych consulted for reevaluation L hemiplegia - Per [facility] pt did have movement of LUE + LLE in past; continue tizanidine, dc baclofen dissociative identity disorder - Psychiatry consult from 01/07 reviewed; pt has capacity to sign DNR/DNI. -has multiple pt reports of unsubstantiated medical diagnoses including CF, SLE, epilepsy. On review of multiple hospital records, there is no evidence of these diagnoses -Psychiatry re-consulted for capacity as pt states she is DNR/DNI, but now wants to change MOLST to do not transfer to hospital , but is near crying about her seizures potentially not being treated since her epilepsy meds have been discontinued (due no evidence of seizure activity on multiple EEGs as previously noted) FEN - Continue PEG tube feeds, now at goal. Per NURSE STAFF, can have VTE ppx - [facility]WH dispo - ready for return to [facility] but they did not hold her bed In my clinical judgment, the patient requires continued inpatient hospitalization for the following reasons: placement, d/c to [facility] 01/11 Total time managing care of this patient today: 60 minutes. Quality Stroke Does the patient have a stroke diagnosis?: No VTE Prior VTE?: No VTE Risk Level:: Medical - moderate - high VTE Device Contraindication: Treatment Not Indicated VTE Drug Contraindication: N/A - Med Ordered
[2024-01-10] MEDS: TiZANidine HCL 4 MG TABLET 8 MG G-TUBE ×3 (10:28→20:35)
[2024-01-10] MEDS: Sennosides 8.6 MG TABLET G-TUBE (10:28)
[2024-01-10] MEDS: Simethicone 40 MG/0.6 ML ORAL.SUSP G-TUBE (10:30)
--- NOTE | 2024-01-10 11:16 | PC.NURSE ---
Approximately 0930- patient attempting to remove own feeding tube, declaring she does not want it anymore. Patient also removed tele monitor. Patient uncooperative with care and assessments, and making statements to staff such as No one here cares about me and I'm not a priority on your list . Multiple staff including primary provider, CNAs, and RNs have spent a minimum of 2 hours providing frequent redirection and education. 1:1 patient process safety manager within arms reach.
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
--- NOTE | 2024-01-10 13:32 | MHC.SL.DTX ---
Dysphagia Diet modifications: Last documented Solid diet consistencies: Last documented Liquid consistency: Last documented Medication Administration: Changes made to current diet?: Liquid Consistency and Strategies: Liquid Intake Recommendation: Thin Compensatory Strategies for Safe Swallow: Small Sips Compensatory Strategies for Safe Swallow(b): Sitting Upright (90 deg) Small Bites and Sips Alternate Liquids/Solids Rate of Ingestion Change Oral Check Avoid Specific Foods Solid Food Consistency: Dietary Recommendations: Chopped/Advanced (NDD3) Additional Modifications to Solids: Avoid difficult to chew solids. Oral Medication Intake: Whole with Puree Strategies and Precautions to be Taken for Safe Swallow: Sitting Upright (90 deg) Small Bites and Sips Alternate Liquids/Solids Rate of Ingestion Change Oral Check Avoid Specific Foods Supervision While Eating and/Drinking: Total Supervision (1:1) Foods to Avoid: Swallowing Recommended Treatments: Pharyngeal Resistive Exer Compens. Strategy Educat. Level of Impact on: Daily activities: Interpersonal interactions: Education: Employment: Community: Prognosis for Improvement: Recommendation for Speech: Inpatient Speech Therapy Comment: [facility] will follow-up x1 to ensure toleration. Frequency/Duration: Date Range for Service Req: Timeline to reassess: Additional Comments: Treatment: Assessment: Hospice Home Health Aide Clinican/Clinical Fellow: No Supervisory Statement: I have reviewed and agree with the student/clinical fellow's documentation: N/A Speech Language Pathologist: Ashwin Simpson M.A., [facility]
--- NOTE | 2024-01-10 13:34 | MHC.SPEECHCO ---
Per RN Pt off floor when VALVE AND REGULATOR REPAIRER arrived. Requested clarification from MD re: order status. VALVE AND REGULATOR REPAIRER will re-attempt tomorrow morning.
[2024-01-10] MEDS: Simethicone 40 MG/0.6 ML ORAL.SUSP PO (14:40)
--- NOTE | 2024-01-10 16:19 | MHC.CLN ---
F/U SEEN BY MONOLOGIST. DIET ADVANCED TO REGULAR, CHOPPED CONSISTENCY. CONTINUE J TUBE FEEDING. VITAL 1.5 AT MAX GOAL RATE 50 ML PER HOUR AND FREE WATER FLUSHES 240 ML Q 6 HOURS. PROVIDES 1800 KCALS (30.8 KCALS/KG CMW); 81 G PROTEIN (1.38 G/KG CMW); 1877 ML FREE WATER FROM FORMULA AND FLUSH (32.1 ML/KG CMW). DO NOT CHECK RESIDUALS SINCE J TUBE FEEDING. FOLLOW FOR PO INTAKE AND TF TOLERANCE.
--- NOTE | 2024-01-10 16:20 | PM.PSYCN ---
History of Present Illness Date of Service: 01/10/2024 Chief Complaint: Seizure Reason for Consult: reassessment of capacity given new medical information obtained Requesting physician: Lyly Knowles Sources of Information: patient interviewed, chart reviewed and crisis/core team assessment reviewed HPI Narrative: Ms. Lizarraga is a 28 year-old woman who was brought via EMS from [facility] where she has been at for only two day (stepped down from [facility]) due to concern of seizure disorder. She apparently had witnessed seizure by EMS, received ativan. In the ED she reported she has hx of seizure disorder since early age and that she had recent admission to [facility] where she was intubated due to status epilepticus. She had repeated episodes that seemed to be repeated seizures and ultimately, pt was intubated proactively in anticipation of protecting airway in face of need for higher doses of benzodiazepines. In the ED, pt also reported hx of other medical conditions including cystic fibrosis, lupus, DM, gastroparesis status post G-tube. Pt had EEG which was surprisingly normal both awake and asleep. Medical team reviewed records from [facility] and [facility] indicating on a video-assisted EEG that during an episode of seizure-like activity there was no apparent EEG evidence of electrical abnormality. 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 Collateral information gathered from her father who reports pt has tendency to present to multiple hospital with inaccurate medical hx and requesting inappropriate medical interventions. When confronted with information about need for treatment for seizure disorder and evidenced of two other hospitals ([facility] and [facility]) about negative EEG, she became hostile demanding to leave AMA and accusing staff at hospital of not caring for her long known medical conditions. In addition, during this hospitalization, she requested to change code status from full to DNR/DNI which raised further concern as to her ability to make medical decisions as medical team has not identified verifiable life threatening condition that would required conversation about goals of care or end of life. She was initially assessed psychiatry on 01/07, and although documentation of assessment is limited, she was deemed as having capacity. Again, today, psychiatry is asked to reassess this patient as there are incongruities about her requests and overall ability to show understanding of current, more factual medical condition. Pt seen in her room. She reports she is doing well but expressed disatisfaction with the care received here in the hospital as she reports she should be on multiple antiepileptic medications, which she states my neurologist in [place] is aware of. Pt informed hospitalist had contact [facility]. She has had multiple eeg which non of them show evidence of seizure disorder. She was also provided with information that recent admission to [facility] also did not show confirmation of seizure disorder. Despite giving this information to Ms. Lizarraga, she continues to report, although with less animosity, that she has a severe seizure disorder. When asked about her decision to be DNR/DNI, she quickly states I have capacity to make this decision, that's my decision and my family is okay with it. Further more, when asked her understanding of medical conditions, pt explains she has life threatening condition including intractable seizure disorder, lupus, cystic fibrosis, all diagnoses that neither one of the other hospitals contacted have in their records and per father are not accurate. She continues to report that she would rather of natural course of such terminal illness rather than prolonging her suffering with limited to no quality of life. Any attempts to redirect patient to actual objective clinical information gathered from 2 other hospitals ([facility] and [facility]), are quickly met with responses such as I'm not talking about this anymore, I have the capacity to make this decision(referring to DNR/DNI code). She denies SI/HI. She reports she is in agreement to return to [facility] and at this point she is not requesting to leave A. Past Psychiatric History: As per father extensive admissions to psychiatry in the past [facility] Medical History Cystic fibrosis SVT (supraventricular tachycardia) Atrial fibrillation POTS (postural orthostatic tachycardia syndrome) Jackie-Danlos syndrome Anemia Lupus Refractory epilepsy Diabetic gastroparesis Diagnostics Vital Signs (24Hr): Vital Signs - 24 hr 01/09/24 19:32 01/09/24 20:28 01/10/24 00:00 Temperature 97.6 F 97.7 F Pulse Rate 83 83 73 Respiratory Rate 19 16 16 Blood Pressure 125/67 104/52 L Pulse Oximetry 98 96 Oxygen Delivery Method Room Air Room Air 01/10/24 03:48 01/10/24 07:22 01/10/24 12:00 Temperature 97.3 F 97.7 F 98.0 F Pulse Rate 86 88 97 Respiratory Rate 16 20 20 Blood Pressure 101/56 L 118/70 123/68 Pulse Oximetry 97 98 97 Oxygen Delivery Method Room Air Room Air Room Air 01/10/24 15:34 Temperature 96.9 F Pulse Rate 77 Respiratory Rate 18 Blood Pressure 116/62 Pulse Oximetry 98 Oxygen Delivery Method Room Air BMI result Body Mass Index 29.9 Labs 01/07/24 05:06 01/07/24 05:06 Labs: Laboratory Results - last 48 hr 01/09/24 10:12 POC Glucose 156 H Imaging Radiology Impressions: ITS Impressions Chest X-Ray 01/04/24 20:38 IMPRESSION: No radiographic evidence of acute cardiopulmonary disease. Head CT 01/04/24 23:50 IMPRESSION: No acute intracranial abnormality including hemorrhage, mass effect, hydrocephalus, or acute territorial edematous infarction. Chest X-Ray 01/06/24 16:45 IMPRESSION: 1. The endotracheal tube terminates at 4.3 cm above the sai. 2. No focal consolidation, pleural effusion or pneumothorax. Head CT 01/09/24 11:24 IMPRESSION: No acute intracranial abnormality including hemorrhage, mass effect, hydrocephalus, or acute territorial edematous infarction. Mental Status Exam Mental Status Exam Narrative: Appearance: wearing hospital gown, fair hygiene, NAD behavior: guarded Psychomotor: no agitation or retardation noted Speech: mostly clear, normal rate/rhythm/volume, spontaneous TP: mostly linear TC: feeling like care not appropriate because her seizure meds were stopped Mood: okay Affect: none SI: denies HI: denies VH/AH: no signs of psychosis Delusions: no signs of delusional content Insight/judgment: impaired x 2. Memory/cog: alert, oriented x 3. Medications Medications Current Medications Acetaminophen (Acetaminophen Supp 650 Mg Supp.Rect) 650 mg [place] Q6H PRN PRN Reason: Pain, Mild (Pain Scale 1-3) Acetaminophen (Acetaminophen 325 Mg Tablet) 650 mg G-TUBE Q6H PRN PRN Reason: PAIN OR FEVER Last Admin: 01/10/24 00:20 Dose: 650 mg Budesonide (Budesonide 0.5 Mg/2 Ml Ampul.Neb) 0.5 mg INHALE RBID [facility] Last Admin: 01/10/24 11:15 Dose: Not Given Enoxaparin Sodium (Enoxaparin Sodium 40 Mg/0.4 Ml Syringe) 40 mg SUBCUT Q24H [facility] Last Admin: 01/10/24 00:20 Dose: 40 mg Lorazepam (Lorazepam 1 Mg Tablet) 1 mg PO TID [facility] Last Admin: 01/10/24 14:40 Dose: 1 mg Melatonin (Melatonin 3 Mg Tablet) 6 mg PO BEDTIME PRN PRN Reason: Insomnia Omeprazole (Omeprazole/Na Bicarb Oral Susp 20 Mg/10 Ml Ud Cup) 20 mg G-TUBE DAILY@0630 [facility] Last Admin: 01/10/24 05:11 Dose: 20 mg Ondansetron HCl (Ondansetron Hcl 4 Mg/2 Ml Vial) 4 mg IVPUSH Q8H PRN PRN Reason: Nausea and Vomiting Last Admin: 01/09/24 04:26 Dose: 4 mg Promethazine HCl (Promethazine Hcl 25 Mg Tablet) 25 mg G-TUBE Q6H PRN PRN Reason: Nausea and Vomiting Last Admin: 01/08/24 11:38 Dose: 25 mg Senna (Sennosides 8.6 Mg Tablet) 8.6 mg G-TUBE DAILY [facility] Last Admin: 01/10/24 10:28 Dose: 8.6 mg Sodium Chloride (0.9 % Sodium Chloride Flush 3 Ml Syringe) 3 ml IVFLUSH [facility] Last Admin: 01/10/24 10:30 Dose: 3 ml Tizanidine HCl (Tizanidine Hcl 4 Mg Tablet) 8 mg G-TUBE TID [facility] Last Admin: 01/10/24 14:39 Dose: 8 mg Zinc Oxide (Zinc Oxide 20% Ointment 28.35 Gm Tube) 1 appl TOPICAL [facility] Last Admin: 01/10/24 10:42 Dose: Not Given Allergies Allergies Allergy/AdvReac Type Severity Reaction Status Date / Time aripiprazole Allergy Unknown Unknown Verified 08/24/23 08:56 bee venom protein (honey bee) Allergy Unknown Anaphylaxis Verified 01/04/24 20:00 latex Allergy Unknown Hives Verified 01/04/24 20:00 shellfish derived Allergy Unknown Anaphylaxis Verified 01/04/24 20:00 trimethoprim Allergy Unknown Unknown Verified 08/24/23 08:56 banana Allergy Anaphylaxis Verified 01/04/24 20:00 Sulfa (Sulfonamide Allergy Unknown Verified 01/04/24 20:00 Antibiotics) Assessment & Plan Assessment & Plan (1) 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 Lizarraga is a 28 year-old woman who initially presented to [facility] with concern of seizure disorder. She was treated with multiple doses of versed, loading doses of keppra. EEG suprisingly normal. Further collateral information from [facility] and [facility] showed that pt has not had evidence of epileptic activity on several EEG and VEEG. Furthermore, pt reports medical hx of several other chronic conditions including cystic fibrosis, lupus which again do not seem to be supported by previous medical work up completed at other hospitals. Her father also reported that pt has hx of reporting inaccurate medical information and requesting treatment that are not clinically indicated. When pt is confronted with medical records from other hospitals plus results of exams done here, she is not able to have a meaningful and coherent conversation but instead is quick to become dismissive and accusatory towards medical staff and care received in hospital. She does NOT presents with symptoms of psychosis or delusions (somatic delusions differed from her presentation as she is presenting with factitious medical information (such as initial reassurance to medical team of confirmation of diagnosis at other medical facilities) and fabrication of physical symptoms), affecting her understanding of current medical presentation. Her behavior does NOT appear to have secondary gains (financial nor medication seeking) either to be considered malingering presentation. Given the information above, Ms. 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 Although on the surface, Ms. Lizarraga seemingly has insight and hence capacity to make an informed decision regarding her care, when one considers the issue of insight in a detailed manner, and assess it in the 3 realms of insight namely 1)insight into current illness, 2) insight into the need for treatment and 3)insight into the effects of current illness on personal functioning, and impairment thereof, both in the index episode and the longitudinal history of the illness, it is clear that the insight is impaired in all 3 realms, affecting her ability to make informed medical decisions. While, the patient can superficially enumerate textbook symptoms of medical conditions that she reports that she has, it is emery to keep in mind that there is no clinical evidence of these conditions, nor that medical team has identified current life threatening medical conditions that required different goals of care or end of life discussions. Fact that it is patient initiating these conversations (end of life, DNR/DNI) about her care and treatment, are evidence of her distorted understanding of her current medical conditions and need for interventions that are NOT clinically indicated. Based on the above, it is my clinical opinion that she lacks capacity to make informed medical decisions. Treatment for factitious disorder is very difficult, often times because the patient may not accept underlying mental illness or pathology and may decline any type of follow up. Inpatient psychiatric admission prove to be of limited therapeutic benefit. More systematic approach needs to be deployed to reduce harm in the form of unnecessary, potentially harmful medical interventions, by maintaining coordination of care with different hospitals and if possible care plan that can be shared with all providers involved in her care. Ideally, she should have consistent team of providers that maintain accurate medical record. Total time managing care of this patient today ____ minutes. Patient educated on: diagnosis Informed Consent: does not understand
--- NOTE | 2024-01-10 16:26 | P.DS_ITS ---
DS: Providers Provider Date of Service: 01/10/24 Date of admission: 01/05/24 00:37 Primary care physician: Clayton Mata DO Consults: 01/05/24 00:38 Consult to Neurology Routine Consulting Provider: [facility] Reason for consultation: seizure 01/06/24 21:53 Consult to Psychiatry Stat Consulting Provider: Psych Covering Reason for consultation: PNES, ? DID- Evaluate Capacity For Decision Making Has provider been notified: No 01/09/24 16:08 Consult to Care Team Stat Comment: Reason for consultation: Evaluate for SI 01/10/24 12:02 Consult to Psychiatry Routine Consulting Provider: Psych Covering Reason for consultation: confirm capacity; psychogenic seizures/personality disorder DS: Diagnosis Discharge Diagnosis (1) Seizure: Status: Acute DS: Summary Hospital Course Hospital Course: HPI on admission: Chief Complaint: seizure This is a 28-year-old female with pertinent history of anoxic brain injury with left-sided hemiplegia, mood disorder, dystonia, urinary incontinence, gastroparesis status post G-tube, opiate dependence, seizure disorder, SLE who was sent from nursing facility for evaluation of seizures. As per the facility, patient has been having on and off seizures lasting 30 minutes that started 1 day prior to presentation. Patient had a witnessed seizure by paramedics and was treated with IM Versed. In the ER, patient was initially postictal but had 2 episodes of seizure witnessed by ER nurse and ER physician. First episode lasted for about 15 minutes and the 2nd episode lasted for 10 minutes. She was given IM Versed 4 mg x 2 and loaded with IV Keppra. Patient does not know why she is here. Does have a small tongue bite to the lateral aspect of the tongue. No fall. Patient states she does have a history of seizure and was hospitalized and intubated at [facility] for several weeks. Patient states at some point she was on Vimpat and Keppra but Vimpat was discontinued. No fever, chills, chest discomfort, palpitations, shortness of breath, abdominal pain. She is bed-bound and uses a wheelchair to ambulate. Hospital course: 28yo female with self-reported history of TBI/anoxic brain injury + L hemiplegia + intractable seizure disorder + other diagnoses as listed above in HPI on admission with complicated extensive history of psychiatric and medical hospital admissions across the state admitted for management of supposed breakthrough seizures. Pt initially admitted to hospitalist service after stabilization in the ED. However, began experiencing what appeared to be breakthrough tonic- clonic seizures (convulsions, rigidity of all extremities, dilated pupils) despite increased dosing of keppra to 2000mg BID and addition of phenobarbital. Seizures treated with IV versed with subsequent supposed post-ictal state where patient was somewhat alert but disoriented. Unfortunately, convulsions continued and patient was transferred to ICU out of concern for status epilepticus and intubated for airway protection on 01/06. Had EEG performed which was negative and was followed closely by neurology and neurodiagnostic technician. Vimpat discontinued and dilantin added. Continued treatment with benzodiazepines. Records were obtained and reviewed from [facility] where patient was monitored on continuous vEEG in neuro ICU with seizure-like activity but no demonstrated electrical activity consistent with epileptic seizures raising concern for pseudoseizures but was still discharged from [facility] on keppra and vimpat. Propofol was weaned and patient became more alert and agitated with recurrence of more focal, right sided seizure acitivity without facial involvement. Rather than benzos, was treated with depakote, became more alert and lucid, gesturing/writing she desired to be extubated and was easily and successfully extubated on 01/07. The first thing patient said upon extubation was that she wanted her morphine. After extubation, patient stated that she wished to sign a DNR/DNI order and capacity assessment was requested and per initial psychiatry evaluation, patient was found to have capacity and was code status changed to DNR/DNI. She was downgraded to medical floor where patient again began to experience seizure like activity. Given concern for epileptic seizure activity given rigidity, unresponsiveness, pupil dilation, urinary incontinence, absent corneal reflex, treated with lorazepam and versed. Seizure like activity became less frequent when advised she would not be given a diet order out of concern for aspiration. Discussion had with neurology recommending discontinuation of all anti-epileptic medications, benzodiazepines, and narcotics given lack of any objective clinical evidence to support multiple medical diagnoses including epilepsy, cystic fibrosis, SLE, among other. Patient became quite agitated upon learning this and threatened leaving AMA, attempting to get out of bed despite hemiplegia. Ultimately, patient was advised that leaving AMA at that time would render her homeless in cold weather and she uttered a witnessed suicidal statement about freezing to in one night and was placed on section 12. Ultimately evaluated by care team and found to not be actively suicidal with reversal of section 12 and deemed to not require inpatient psychiatric care. Clonazepam was discontinued as was baclofen. Depakote, dilantin, and keppra all discontinued. Lorazepam decreased to TID and should continue to be tapered in outpatient setting per outpatient psychiatry recommendation. She was continued on morphine on prn basis given longevity of treatment. Tube feeds were continued and SALES OPERATIONS LEAD evaluation advised she could continue with NDDM3 diet in addition. With thre removal of these agents, patient's level of alertness and lucidity improved significantly and interestingly patient did not experience any further seizure- like activity (even those suspicious for PNES) following discontinuation of these medications. Extensive review of records from [facility] and [facility] (and associated facilities) revealed multiple EEG's negative for any objective evidence of epileptic seizure activity. Neurology consults are reviewed citing prior history of possible epilepsy, again based on subjective information provided by patient, without any concrete evidence of the disorder. Questions were made by providers in other hospital records about the existence of diagnoses such as SLE or cystic fibrosis without any concrete imaging, lab data, prior medication trials, or specialist consults to substantiate the patient's claims. Upon further discussion with the patient's father (who is Healthcare Proxy per [facility] records), which he requested not be shared with the patient herself as he was concerned his information would result in her withdrawing him from any involvement in her care, the patient has history of dissociative identity disorder, as well as multiple psychiatric diagnoses since she was a child. He also reports patient does not have history of traumatic brain injury, no craniotomy, cystic fibrosis or seizures. States patient was under her mother's care until she was 20 years old, and has been admitted to multiple facilities throughout [place] making up diagnoses , the patient no longer wants relationship with mother due to her not believing her diagnoses . Upon review of [facility] and [facility] charts, as previously stated, there is no EEG evidence of seizure acitvity though patient had been continued on seizure medications by other facilities. Regarding TBI/hemiplegia, there is definite history of TBI and there are former notes referencing movement in the LUE and LLE in the past in [facility] records. 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 On 01/10, psychiatry was again consulted and ultimately has been deemed to NOT have capacity based on significant impairment of insight, diagnosing factitious disorder. Per psychiatry: Patient is presenting with factitious medical information (such as initial reassurance to medical team of confirmation of diagnosis at other medical facilities) and fabrication of physical symptoms), affecting her understanding of current medical presentation. Her behavior does NOT appear to have secondary gains (financial nor medication seeking) either to be considered malingering presentation. Given the information above, Ms. 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 Recommendations for treatment per psychiatry stress the importance of a systematic approach [which] needs to be deployed to reduce harm in the form of unnecessary, potentially harmful medical interventions, by maintaining coordination of care with different hospitals and if possible care plan that can be shared with all providers involved in her care. Ideally, she should have consistent team of providers that maintain accurate medical record. Please see full psychiatry consult from 01/10. Patient will be discharged back to [facility] for further management. Based on psychiatry recommendations and patient's inability to demonstrate good insight and judgement, assignment of guardian by outpatient team may need to be considered to ensure patient's safety. #PNES -no eeg evidence or neurology noted found on review of [facility] and [facility] records dating to 2015 providing concrete evidence of epileptic seizure disorder -Per neuro depakote, keppra, phenytoin dc'd. Clonazepam dc'd. Continue tapering lorazepam -no recurrent seizures after patient advised of no eeg evidence of seizures and anti-epileptic seizure medications discontinued #dissociative identity disorder/factitious disorder -Per father -has multiple pt reports of unsubstantiated medical diagnoses including CF, SLE, epilepsy. Has g tube in place due to gastroparesis. Has spinal neurostimulator in place due to chronic left sided pain/hemiplegia following R craniotomy in 2008. On review of multiple hospital records, there is no objective evidence of these diagnoses available for review dating back to 2015 -Per psychiatry reevaluation 01/10, patient does not have capacity to make medical decisions based on significant impairment of insight. See consult. Code status should be changed back to Full code. #SI statement -briefly placed on section 12a due to witnessed vague SI statement. Evaluted by care team, not felt to require inpt psychiatric level of care #L hemiplegia/chronic left sided pain - Per pt report, R craniotomy 2007 following subdural hematoma. Per [facility] pt did have movement of LUE + LLE in past; continue tizanidine, dc baclofen per neurology -continue morphine for now, would recommend tapering -has spinal cord stimulator in place, but no remote. unable to obtain MRI #FEN - Per pt report, had gatroparesiss/p PEG tube placement. Continue PEG tube feeds, now at goal. Per SALES OPERATIONS LEAD, can have NDDM3 given has tolerated previously Physical Exam Vital Signs: Vital Signs: Last Vital Signs Temp 96.9 F 01/10/24 15:34 Pulse 77 01/10/24 15:34 Resp 18 01/10/24 15:34 BP 116/62 01/10/24 15:34 Pulse Ox 98 01/10/24 15:34 O2 Del Method Room Air 01/10/24 15:34 O2 Flow Rate 2 01/06/24 07:26 FiO2 30 01/07/24 15:04 Oxygen Flow Rate 2 01/04/24 20:13 BMI result Body Mass Index 29.9 Discharge Plan Discharge Anticipated Discharge Date/Time: 01/06/24 10:33 Patient Disposition: Xfer SNF Discharge Diagnosis: Breakthrough seizures Referrals: [facility] [Outside] Physician,Unknown J [Physician] - 1 Week Discharge Medications: New phenobarbital 100 mg tablet 100 mg feeding tube BEDTIME Qty: 30 0RF Continued sennosides [senna] 8.6 mg Tablet 8.6 mg feeding tube DAILY acetaminophen 325 mg Tablet 650 mg feeding tube Q6H PRN (Reason: PAIN OR FEVER) albuterol sulfate 2.5 mg /3 mL (0.083 %) Solution For Nebulization 2.5 mg INHALATION Q6H PRN (Reason: Wheezing) promethazine 6.25 mg/5 mL Syrup 25 mg feeding tube Q6H PRN (Reason: Nausea And Vomiting) lorazepam 2 mg/mL Solution 1 mg IM Q5M PRN (Reason: Seizures) Rx Instructions: SEIZURE GREATER THAN 5 MINUTES clonazepam 0.5 mg Tablet 1 mg feeding tube BID baclofen 20 mg Tablet 20 mg feeding tube QID lansoprazole 30 mg Capsule,Delayed Release(Dr/Ec) 30 mg feeding tube DAILY ibuprofen 200 mg Tablet 600 mg feeding tube Q8H PRN (Reason: Moderate Pain (Scale Score 5-6)) morphine 10 mg/5 mL Solution 10 mg feeding tube Q4H PRN (Reason: Severe Pain (Scale Score 7-10)) aspirin 81 mg Tablet,Chewable 81 mg feeding tube DAILY levetiracetam 100 mg/mL Solution 1,000 mg feeding tube BID tizanidine 4 mg Capsule 8 mg feeding tube TID budesonide 1 mg/2 mL Suspension For Nebulization 0.5 mg INHALATION BID zinc oxide 15 % Cream 1 appl TOPICAL QSHIFT Rx Instructions: APPLY TO J TUBE SITE Diet: tube feed Activity on Discharge: As tolerated Stand Alone Forms: Patient Portal Discharge page Care Plan Goals: Seizure prevention Health Concerns: Recurrent seizure Plan of Treatment: Take Keppra and phenobarbital as recommended and follow up with your neurologist Assessment: See above
[2024-01-10] MEDS: Simethicone 80 MG TAB.CHEW PO ×2 (16:47→20:36)
[2024-01-10] MEDS: Magnesium Hydrox/Alum Hydrox 30 ML ORAL.SUSP PO (18:16)
--- NOTE | 2024-01-10 18:32 | MHC.CARE ---
Pt evaluated by the Care Team does not need inpatient level of care. Pt referred to case management
[2024-01-10] MEDS: Budesonide 0.5 MG/2 ML AMPUL.NEB INHALE (20:19)
[2024-01-11] MEDS: Morphine Sulfate Oral Sol 10 MG/5 ML SOLUTION G-TUBE ×3 (00:54→09:16)
[2024-01-11] MEDS: 0.9 % Sodium Chloride Flush 3 ML SYRINGE IVFLUSH ×2 (01:04→09:45)
[2024-01-11] MEDS: Zinc Oxide 20% Ointment 28.35 GM TUBE 1 APPL TOPICAL ×2 (01:06→09:18)
[2024-01-11] MEDS: Magnesium Hydrox/Alum Hydrox 30 ML ORAL.SUSP PO ×2 (01:33→09:18)
[2024-01-11] MEDS: Enoxaparin Sodium 40 MG/0.4 ML SYRINGE SUBCUT (01:33)
[2024-01-11 01:54] VITALS: RESP 18
[2024-01-11 03:51] VITALS: BP 132/73; PULSE 81; RESP 17; TEMP 36.4; O2SAT 97
[2024-01-11] MEDS: Omeprazole/Na Bicarb Oral Susp 20 MG/10 ML UD Cup G-TUBE (05:34)
[2024-01-11 06:28] LABS: Estimated Average Glucose 74 mg/dL; Hemoglobin A1c % 4.2 % (<6.0)
[2024-01-11 07:36] VITALS: BP 129/73; PULSE 80; RESP 16; TEMP 36; O2SAT 97
[2024-01-11] MEDS: Budesonide 0.5 MG/2 ML AMPUL.NEB INHALE (08:35)
[2024-01-11 08:36] VITALS: PULSE 83; RESP 18; O2SAT 98
--- NOTE | 2024-01-11 09:07 | MHC.CM.PN ---
EMR reviewed. Per MD patient is medically cleared for dc, resume LTC at [facility]. BLS transportation is booked for 11am. Patient, HCP/father, RN and MD aware.
[2024-01-11] MEDS: Simethicone 80 MG TAB.CHEW PO (09:17)
[2024-01-11] MEDS: LORazepam 1 MG TABLET PO (09:17)
[2024-01-11] MEDS: TiZANidine HCL 4 MG TABLET 8 MG G-TUBE (09:17)
[2024-01-11] MEDS: Sennosides 8.6 MG TABLET G-TUBE (09:17)
[2024-01-14 19:08] LABS: Anti Nuclear Antibody Pattern Mitotic, Centrosome; Anti Nuclear Antibody Screen POSITIVE (NEGATIVE); Anti Nuclear Antibody Titer 1:40 titer
== END 2024-01-11 12:17 | disposition skilled nursing facility (03) | DRG 752 ==
LOC: HO.ED 22:48 → HO.EDOVER 01-05 00:40 → HO.S3 01-05 14:22 → HO.ICU 01-06 15:31 → HO.S3 01-07 16:34 → HO.IMC 01-09 10:43 → HO.S3 01-09 14:29
PROVIDERS: Internal Medicine Cardiovascular Disease; Physician Assistant; Registered Nurse Community Health; Social Worker; Admitting Provider Student in an Organized Health Care Education/Training Program; Emergency Provider Emergency Medicine Emergency Medical Services; PCP Hospitalist; Visit Provider Internal Medicine
DX: F68.12 Factitious disorder imposed on self, with predominantly physical signs and symptoms (principal); R45.851 Suicidal ideations; M32.9 Systemic lupus erythematosus, unspecified; F44.81 Dissociative identity disorder; G80.8 Other cerebral palsy; F11.20 Opioid dependence, uncomplicated; Z66 Do not resuscitate; K31.84 Gastroparesis; Z93.1 Gastrostomy status; R32 Unspecified urinary incontinence; Z20.822 Contact with and (suspected) exposure to COVID-19; Z91.040 Latex allergy status; Z96.82 Presence of neurostimulator; Z79.899 Other long term (current) drug therapy
CPT/HCPCS: 0241U; 36415; 70450; 71045; 80048; 80053; 81003; 81025; 82040; 82550; 82803; 82947; 83036; 83605; 83690; 83735; 84100; 85025; 85652; 85730; 86038; 86039; 92610; 94002; 94003; 94799; 95816; 97112; 97163; 97167; 99285; C1758; J1165; J1170; J1650; J1953; J2060; J2250; J2270; J2405; J2550; J2560; J2704; S9485

== ENCOUNTER → 2024-01-05 00:37 | Outpatient (BNV) | payer OTHER, SELFPAY | PROVIDERS: Admitting Provider Student in an Organized Health Care Education/Training Program; Emergency Provider Emergency Medicine Emergency Medical Services; PCP Hospitalist; Visit Provider Internal Medicine Cardiovascular Disease | DX: G93.1 Anoxic brain damage, not elsewhere classified (principal); J96.01 Acute respiratory failure with hypoxia; G40.311 Generalized idiopathic epilepsy and epileptic syndromes, intractable, with status epilepticus; G40.919 Epilepsy, unspecified, intractable, without status epilepticus; G40.909 Epilepsy, unspecified, not intractable, without status epilepticus | CPT/HCPCS: 31500; 99291 ==

== ENCOUNTER → 2024-01-05 00:37 | Outpatient (BNV) | payer OTHER, SELFPAY | PROVIDERS: Admitting Provider Student in an Organized Health Care Education/Training Program; Emergency Provider Emergency Medicine Emergency Medical Services; PCP Hospitalist; Visit Provider Psychiatry & Neurology Psychiatry | DX: F68.12 Factitious disorder imposed on self, with predominantly physical signs and symptoms (principal) | CPT/HCPCS: 99222; 99232; 99233; 99499 ==

== ENCOUNTER → 2024-01-05 00:37 | Outpatient (BNV) | payer OTHER, SELFPAY | PROVIDERS: Admitting Provider Student in an Organized Health Care Education/Training Program; Emergency Provider Emergency Medicine Emergency Medical Services; Visit Provider Student in an Organized Health Care Education/Training Program | DX: G40.919 Epilepsy, unspecified, intractable, without status epilepticus (principal) | CPT/HCPCS: 99223; 99232; 99233; 99239; 99499 ==

== ENCOUNTER → 2024-01-05 00:37 | Outpatient (BNV) | payer OTHER, SELFPAY | PROVIDERS: Admitting Provider Student in an Organized Health Care Education/Training Program; Emergency Provider Emergency Medicine Emergency Medical Services; Visit Provider Psychiatry & Neurology Neurology | DX: G40.919 Epilepsy, unspecified, intractable, without status epilepticus (principal) | CPT/HCPCS: 99222; 99223 ==

== ENCOUNTER 2024-01-30 10:04 | Emergency (ER) | payer OTHER, SELFPAY ==
[2024-01-30] VITALS (19 sets, daily range): BP systolic 87–169; BP diastolic 45–145; PULSE 62–133; RESP 16–29; TEMP 34.6–37.9; O2SAT 97–100; BMI 22.8
--- NOTE | ~2024-01-30 | XR_ITS ---
EXAMINATION: XR CHEST CLINICAL INFORMATION: NG tube placement. COMPARISON: Chest 01/06/2034 TECHNIQUE: Frontal view of the chest was obtained. FINDINGS: Tip of endotracheal tube is 2.0 cm above the sai. Lungs are expanded and clear. Heart size and pulmonary vascularity is normal. There is a enteric tube extending in a somewhat with the tip is not in the [id number].. There is a neurostimulator device projecting over left axilla with its lead extending to the left neck soft tissues XR/XR chest 1V IMPRESSION: New enteric tube tip is in the cervix stomach with its tip not in [id number]. Enteric tube tip is 2.4 cm above the sai. The lungs are clear.
--- NOTE | 2024-01-30 10:15 | ECG_ITS ---
Test Reason : seizure Blood Pressure : / mmHG Vent. Rate : 107 BPM Atrial Rate : 107 BPM P-R Int : 122 ms QRS Dur : 078 ms QT Int : 318 ms P-R-T Axes : 058 103 046 degrees QTc Int : 424 ms Sinus tachycardia Rightward axis Borderline ECG No previous ECGs available Referred By: Tequila Orellana Electronically Signed By:SANDRO WARREN MD
--- NOTE | 2024-01-30 10:22 | ED.SEIZURE ---
HPI - Seizure General Chief Complaint: Seizure Stated Complaint: SZ X1 HOUR,FROM SNF PER EMS Time Seen by Provider: 01/30/24 10:15 Source: EMS and other Mode of arrival: EMS History of Present Illness HPI Narrative: 28-year-old female with history of diabetes and status epilepticus is brought in by EMS from care [facility] facility, patient also has a history of anoxic brain injury, EMS did not get any IV access, did not provide any medication for seizures rectally or otherwise, and reports that formerly [facility] informed them that patient had been having seizures since 444 and that they were unable to manage the seizures. They did report that they gave her Keppra through her G-tube. Patient herself is unable to provide any additional information. Past medical history as reviewed from prior admission on 01/05/2024 anoxic brain injury with left-sided hemiplegia, mood disorder, dystonia, urinary incontinence, gastroparesis status post G-tube, opiate dependence, seizure disorder, SLE Seizure History: Yes Related Data Home Medications Medication Instructions Recorded Confirmed acetaminophen 325 mg tablet 650 mg feeding tube Q6H PRN PAIN 01/04/24 01/04/24 OR FEVER albuterol sulfate 2.5 mg/3 mL 2.5 mg inhalation Q6H PRN Wheezing 01/04/24 01/04/24 (0.083 %) solution for nebulization aspirin 81 mg chewable tablet 81 mg feeding tube DAILY 01/04/24 01/04/24 budesonide 1 mg/2 mL suspension 0.5 mg inhalation BID 01/04/24 01/04/24 for nebulization clonazepam 0.5 mg tablet 1 mg feeding tube BID 01/04/24 01/04/24 ibuprofen 200 mg tablet 600 mg feeding tube Q8H PRN 01/04/24 01/04/24 Moderate Pain (Scale Score 5-6) lansoprazole 30 mg capsule,delayed 30 mg feeding tube DAILY 01/04/24 01/04/24 release morphine 10 mg/5 mL oral solution 10 mg feeding tube Q4H PRN Severe 01/04/24 01/04/24 Pain (Scale Score 7-10) promethazine 6.25 mg/5 mL oral 25 mg feeding tube Q6H PRN Nausea 01/04/24 01/04/24 syrup And Vomiting sennosides 8.6 mg tablet (senna) 8.6 mg feeding tube DAILY 01/04/24 01/04/24 tizanidine 4 mg capsule 8 mg feeding tube TID 01/04/24 01/04/24 zinc oxide 15 % topical cream 1 appl topical QSHIFT 01/04/24 01/04/24 Previous Rx's Medication Instructions Recorded lorazepam 1 mg tablet 1 mg PO BID PRN anxiety #20 tabs 01/11/24 Allergies Allergy/AdvReac Type Severity Reaction Status Date / Time aripiprazole Allergy Unknown Unknown Verified 08/24/23 08:56 bee venom protein (honey bee) Allergy Unknown Anaphylaxis Verified 01/04/24 20:00 latex Allergy Unknown Hives Verified 01/04/24 20:00 shellfish derived Allergy Unknown Anaphylaxis Verified 01/04/24 20:00 trimethoprim Allergy Unknown Unknown Verified 08/24/23 08:56 banana Allergy Anaphylaxis Verified 01/04/24 20:00 Sulfa (Sulfonamide Allergy Unknown Verified 01/04/24 20:00 Antibiotics) Review of Systems Review of Systems: Yes Unobtainable due to mental condition PMFSH Past Medical History Source: nursing notes reviewed Medical History 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 Nonepileptic attack disorder Seizure Anoxic encephalopathy Acute respiratory failure with hypoxemia Epileptic seizure Cystic fibrosis SVT (supraventricular tachycardia) Atrial fibrillation POTS (postural orthostatic tachycardia syndrome) Jackie-Danlos syndrome Anemia Lupus Refractory epilepsy Diabetic gastroparesis Social History Social History Household Members: Other Housing: Half-Way Do you presently have visiting nurse or other home services: No (from [facility]) Alcohol intake: never Comment: sitter Patient Tobacco Use Status: Never used Tobacco Advance Directives: No Advance Directives Information Provided: No service: No Physical Exam Vital Signs: Vital Signs: Last Vital Signs Temp 99 F 01/30/24 13:34 Pulse 76 01/30/24 13:42 Resp 18 01/30/24 13:34 BP 88/45 L 01/30/24 13:42 Pulse Ox 100 01/30/24 13:34 O2 Del Method Mechanical Ventil ation 01/30/24 13:34 O2 Flow Rate 15 01/30/24 11:14 FiO2 40 01/30/24 11:40 Oxygen Flow Rate 2 01/30/24 10:25 BMI result Body Mass Index 22.8 VITAL SIGNS: Reviewed. GENERAL: Chronically ill, currently seizure HEAD: Normocephalic/atraumatic EYES: PERRLA, EOMI, no nystagmus+, rightward gaze EARS: Ext canals without abnormality NOSE: Nares patent bilateral OROPHARYNX: no oral lesions noted, posterior pharynx clear NECK: Supple, no adenopathy LUNGS: Bradypnea. No adventitious sounds or accessory muscle use. SpO2<100> 100% non-rebreather CARDIOVASCULAR: Tachycardic rate and rhythm without noted murmurs, no JVD or lower extremity edema. ABDOMEN: Soft, non-tender, non-distended with bowel sounds. MUSCULOSKELETAL: No tenderness, deformities, or effusions noted on gross inspection. EXTREMITIES: No cyanosis, clubbing or edema. SKIN: Inspection of the skin reveals no rashes, ulcerations, jaundice, pallor, or petechiae. NEUROLOGIC: Current tonic-clonic seizure, not alert Medications Administered Generic Name Dose Route Start Last Admin Trade Name Freq PRN Reason Stop Dose Admin Propofol 1,000 mg in 100 mls @ 0 mls/hr 01/30/24 11:45 01/30/24 13:09 Diprivan IVCONT 40 mcg/kg/min .Q0M ZAMZAM 16.33 mls/hr Titration Protocol Per Protocol Norepinephrine Bitartrate 8 mg in 250 mls @ 0 mls/hr 01/30/24 13:45 01/30/24 13:42 Levophed IV 0.05 mcg/kg/min .Q0M ZAMZAM 6.38 mls/hr Administration Protocol Per Protocol Discontinued Medications Generic Name Dose Route Start Last Admin Trade Name Freq PRN Reason Stop Dose Admin Etomidate 10 mg 01/30/24 11:31 01/30/24 11:27 Etomidate 20 Mg/10 Ml Vial IVPUSH 01/30/24 11:32 10 mg NOW STA Administration Fentanyl 100 mcg 01/30/24 13:30 01/30/24 13:33 Fentanyl Citrate/Pf 100 Mcg/2 Ml Vial IVPUSH 01/30/24 13:31 100 mcg ONCE ONE Administration Protocol Sodium Chloride 1,000 mls @ 999 mls/hr 01/30/24 10:30 01/30/24 11:07 Ns IV 01/30/24 11:30 999 mls/hr .Q1H1M ZAMZAM Administration Levetiracetam 1,500 mg in 100 mls @ 400 mls/hr 01/30/24 11:06 01/30/24 11:46 Keppra IV 01/30/24 11:20 Infused ONCE ONE Infusion Levetiracetam 1,500 mg in 100 mls @ 400 mls/hr 01/30/24 11:08 01/30/24 11:46 Keppra IV 01/30/24 11:22 Infused ONCE ONE Infusion Levetiracetam 1,000 mg in 100 mls @ 400 mls/hr 01/30/24 11:46 01/30/24 13:10 Keppra IV 01/30/24 12:00 Infused ONCE ONE Infusion Lorazepam 2 mg 01/30/24 10:15 01/30/24 10:24 Lorazepam 2 Mg/Ml Vial IVPUSH 01/30/24 10:16 2 mg ONCE ONE Administration Lorazepam 2 mg 01/30/24 10:59 01/30/24 11:04 Lorazepam 2 Mg/Ml Vial IVPUSH 01/30/24 11:00 2 mg ONCE ONE Administration Lorazepam 2 mg 01/30/24 11:16 01/30/24 11:19 Lorazepam 2 Mg/Ml Vial IVPUSH 01/30/24 11:17 2 mg ONCE ONE Administration Lorazepam 4 mg 01/30/24 12:40 01/30/24 12:44 Lorazepam 2 Mg/Ml Vial IVPUSH 01/30/24 12:41 4 mg ONCE ONE Administration Midazolam HCl 10 mg 01/30/24 10:32 01/30/24 10:43 Midazolam Hcl/Pf 2 Mg/2 Ml Vial IM 01/30/24 10:33 10 mg ONCE ONE Administration Rocuronium Rhodelia 100 mg 01/30/24 11:31 01/30/24 11:27 Rocuronium Rhodelia 50 Mg/5 Ml Vial IVPUSH 01/30/24 11:32 100 mg ONCE ONE Administration Medical Decision Making Medical Decision Making MDM Narrative: 28-year-old female with history of status epilepticus, seen here in December for same, received medication this morning, still seizing INTERVENTION: Immediate IV access obtained in left foot, Ativan provided, connected to information assurance analyst and pulse oximetry. POC glucose-92 1015: 2 mg Ativan, IVP 1032: 10 mg Versed IM 1059: 2 mg Ativan, IVP 1106: 4000 mg Keppra, weight based 1116: 2 mg Ativan, IVP Decision made to intubate patient due to uncontrolled continuous seizure acute recurrent and significant episodes of hypoxia in between despite nasopharyngeal airway. Patient is successfully intubated without complication, NG in place as well and started on propofol drip. Prelim review of chest x-ray by me demonstrates tip of ET tube in good place and NG is noted to traverse the diaphragm. I reviewed all investigations and hematologic indices demonstrate a mild leukopenia without anemia or thrombocytopenia and no left shift. Chemistry indices negative for LOLITA/electrolyte/liver enzyme derangements. Urinalysis negative for UTI or hematuria. Viral testing negative for influenza/RSV/COVID. 1159: [facility] is not available for MICU transfer at this time. 1203: [facility] not available for MICU transfer at this time. 1225: I discussed case with [facility] see, who accepts the patient in transfer to [facility] and the accepting physician is Dr Harper Patient required additional sedation medication and received additional Ativan, 4 mg, patient also received an additional 20 mg of rocuronium as well as 100mcg of fentanyl. Patient was then noted to demonstrates an understandable decrease in blood pressure and was started on Levophed. Differential Diagnosis Differential Diagnoses: The differential diagnosis associated with the presentation includes Please see the discussion above Admission/Observation Consideration of admission/observation: Escalation of care including admission/observation considered Please see the discussion above Consult Healthcare Provider Management of the patient was discussed with: Mannequin Wig Maker Please see the discussion above. Lab Data [facility] Lab Attestation statement: I reviewed the patient's lab results. Please see the discussion above 01/30/24 11:00 01/30/24 11:00 Labs: Lab Results 01/30/24 01/30/24 01/30/24 Range/Units 10:28 11:00 11:01 WBC 4.6 L (4.8-10.8) X10*3/uL RBC 4.16 L (4.20-5.50) X10*6/uL Hgb 13.1 (12.0-16.0) g/dl Hct 36.7 L (37.0-47.0) % MCV 88.2 (80.0-98.0) fL MCH 31.5 (27.0-33.0) pg MCHC 35.7 H (31.0-35.0) g/dl RDW 13.1 (11.0-16.0) % Plt Count 182 D (160-400) X10*3/uL MPV 9.0 L (9.4-12.3) fL Immature Gran % (Auto) 0.2 (0.0-0.4) % Neut % (Auto) 69.1 (45-73) % Lymph % (Auto) 21.4 (20-40) % [place] % (Auto) 8.0 (2-11) % Eos % (Auto) 1.1 (0-4) % Baso % (Auto) 0.2 (0-2) % Lymph # (Auto) 1.0 L (1.2-4.9) X10*3/uL [place] # (Auto) 0.4 (0.1-1.2) X10*3/uL Eos # (Auto) 0.1 (0.0-0.4) X10*3/uL Baso # (Auto) 0.0 (0.0-0.2) X10*3/uL Abs Immat Gran (auto) 0.01 (0.00-0.03) X10*3/uL Absolute Neuts (auto) 3.2 (2.0-8.3) x10*3/uL Absolute Nucleated RBC 0.000 (0.0-0.012) X10*3/uL Nucleated RBC % (auto) 0.0 (0.0-0.2) /100WBC Hold Purple Top Sodium 141 (135-145) mmol/L Potassium 4.1 (3.3-5.1) mmol/L Chloride 107 (96-108) mmol/L Carbon Dioxide 24 (22-29) mmol/L Anion Gap 14 (12-20) BUN 13 (9-16) mg/dL Creatinine 0.66 (0.5-1.4) mg/dL Estim Creat Clear Calc 130.2 Estimated GFR > 60 POC Glucose 98 (60-115) mg/dL Random Glucose 92 (60-115) mg/dL Lactic Acid (0.5-2.0) mmol/L Calcium 9.5 D (8.4-10.2) mg/dL Magnesium 1.8 (1.6-2.6) mg/dL Total Bilirubin 0.4 (0.0-1.0) mg/dL AST 19 (5-31) U/L ALT 18 (0-31) U/L Alkaline Phosphatase 95 (39-117) U/L Total Protein 7.2 (6.5-8.0) g/dL Albumin 4.2 (3.5-5.0) g/dL Urine Color Yellow Urine Appearance Clear Urine pH 6.5 (5.0-9.0) Ur Specific [place] 1.020 (1.005-1.025) Urine Protein Negative (Neg-Trace) mg/dL Urine Glucose (UA) Negative (Negative) mg/dL Urine Ketones Negative (Negative) mg/dL Urine Blood Negative (Negative) Urine Nitrite Negative (Negative) Ur Leukocyte Esterase Negative (Negative) Influenza Type A (PCR) NEGATIVE (Negative) Influenza Type B (PCR) NEGATIVE (Negative) RSV RNA Qual (PCR) NEGATIVE (Negative) SARS-CoV-2 RNA (RT-PCR) NEGATIVE (Negative) 01/30/24 01/30/24 01/30/24 Range/Units 11:33 11:50 11:57 WBC (4.8-10.8) X10*3/uL RBC (4.20-5.50) X10*6/uL Hgb (12.0-16.0) g/dl Hct (37.0-47.0) % MCV (80.0-98.0) fL MCH (27.0-33.0) pg MCHC (31.0-35.0) g/dl RDW (11.0-16.0) % Plt Count (160-400) X10*3/uL MPV (9.4-12.3) fL Immature Gran % (Auto) (0.0-0.4) % Neut % (Auto) (45-73) % Lymph % (Auto) (20-40) % [place] % (Auto) (2-11) % Eos % (Auto) (0-4) % Baso % (Auto) (0-2) % Lymph # (Auto) (1.2-4.9) X10*3/uL [place] # (Auto) (0.1-1.2) X10*3/uL Eos # (Auto) (0.0-0.4) X10*3/uL Baso # (Auto) (0.0-0.2) X10*3/uL Abs Immat Gran (auto) (0.00-0.03) X10*3/uL Absolute Neuts (auto) (2.0-8.3) x10*3/uL Absolute Nucleated RBC (0.0-0.012) X10*3/uL Nucleated RBC % (auto) (0.0-0.2) /100WBC Hold Purple Top SEE NOTE Sodium (135-145) mmol/L Potassium (3.3-5.1) mmol/L Chloride (96-108) mmol/L Carbon Dioxide (22-29) mmol/L Anion Gap (12-20) BUN (9-16) mg/dL Creatinine (0.5-1.4) mg/dL Estim Creat Clear Calc Estimated GFR POC Glucose 90 (60-115) mg/dL Random Glucose (60-115) mg/dL Lactic Acid 2.1 H* (0.5-2.0) mmol/L Calcium (8.4-10.2) mg/dL Magnesium (1.6-2.6) mg/dL Total Bilirubin (0.0-1.0) mg/dL AST (5-31) U/L ALT (0-31) U/L Alkaline Phosphatase (39-117) U/L Total Protein (6.5-8.0) g/dL Albumin (3.5-5.0) g/dL Urine Color Urine Appearance Urine pH (5.0-9.0) Ur Specific [place] (1.005-1.025) Urine Protein (Neg-Trace) mg/dL Urine Glucose (UA) (Negative) mg/dL Urine Ketones (Negative) mg/dL Urine Blood (Negative) Urine Nitrite (Negative) Ur Leukocyte Esterase (Negative) Influenza Type A (PCR) (Negative) Influenza Type B (PCR) (Negative) RSV RNA Qual (PCR) (Negative) SARS-CoV-2 RNA (RT-PCR) (Negative) Independent Interpretation I performed an independent interpretation of an: EKG Interpretation: Sinus tachycardia, HR-107, no STEMI, WA/QRS/QTC is within normal limits, there is no QT prolongation. Radiology Impression Discussion of test interpretation with radiology: I have reviewed the radiologist's reading. Radiologist Impression: Please see the discussion above External Record Review External record reviewed: Outpatient record, Prior outpatient labs and Prior outpatient radiology Chronic Conditions Patient?s care impacted by: Diabetes Status epilepticus, anoxic brain injury Procedures Central Line Placement Right Femoral: Time Out Performed: No Patient Placed on Monitor/Pulse Ox: Yes MD Prep: mask and gloves Central Line Prep: Chlorhexidine scrub Local Anesthetic: lidocaine 1% Amount of anesthesia used (mL): 2 Ultrasound Used for Placement: Yes Central Line Lumen Inserted: triple Post Procedure: sutured in place, good blood return, all ports aspirated, flushed, capped and sterile dressing applied Patient Tolerated Procedure: well Complications: none Intubation Intubation Type:: Endotracheal Tube Insertion Intubation Date:: 01/30/24 Intubation Time:: 11:20 Time out performed: No sedative: Etomidate Mg Given: 10 paralytic: Rocuronium Mg Given: 100 Laryngoscope: fiber optic video scope ET Tube Size: 7.5 ET Tube Uncuffed: No Tube Secured Depth (cm): 25 Tube Secured Location: lips Tube Placement Confirmation: visualized tube passing through cords, equal breath sounds bilaterally, no breath sounds over epigastrium and confirmation by capnometry Patient Tolerated Procedure: well Intubation Complications: none Critical Care Time Critical Care Time Critical Care Time: Yes Total Critical Care Time: 120 Attestation: I personally attest to this time spent taking care of the patient. Discharge Plan Discharge Clinical Impression: Status epilepticus Patient Disposition: [facility] Transfer Details: Requires critical care level of care, no beds available at [facility] Prescriptions: No Action sennosides [senna] 8.6 mg Tablet 8.6 mg feeding tube DAILY acetaminophen 325 mg Tablet 650 mg feeding tube Q6H PRN (Reason: PAIN OR FEVER) albuterol sulfate 2.5 mg /3 mL (0.083 %) Solution For Nebulization 2.5 mg INHALATION Q6H PRN (Reason: Wheezing) promethazine 6.25 mg/5 mL Syrup 25 mg feeding tube Q6H PRN (Reason: Nausea And Vomiting) clonazepam 0.5 mg Tablet 1 mg feeding tube BID lansoprazole 30 mg Capsule,Delayed Release(Dr/Ec) 30 mg feeding tube DAILY ibuprofen 200 mg Tablet 600 mg feeding tube Q8H PRN (Reason: Moderate Pain (Scale Score 5-6)) morphine 10 mg/5 mL Solution 10 mg feeding tube Q4H PRN (Reason: Severe Pain (Scale Score 7-10)) aspirin 81 mg Tablet,Chewable 81 mg feeding tube DAILY tizanidine 4 mg Capsule 8 mg feeding tube TID budesonide 1 mg/2 mL Suspension For Nebulization 0.5 mg INHALATION BID zinc oxide 15 % Cream 1 appl TOPICAL QSHIFT Rx Instructions: APPLY TO J TUBE SITE lorazepam 1 mg Tablet 1 mg PO BID PRN (Reason: anxiety) Qty: 20 0RF
[2024-01-30] MEDS: LORazepam 2 MG/ML VIAL IVPUSH ×3 (10:24→11:19)
[2024-01-30] MEDS: Midazolam HCl/PF 2 MG/2 ML VIAL 10 MG IM (10:43)
[2024-01-30 11:04] LABS: MANUAL DIFF FLAG NO
[2024-01-30 11:05] LABS: Basophils Percent Auto 0.2 % (0-2); Eosinophils Absolute Auto 0.1 X10*3/uL (0.0-0.4); Eosinophils Percent Auto 1.1 % (0-4); Hematocrit 36.7 % (37.0-47.0); Hemoglobin 13.1 g/dl (12.0-16.0); Imm Gran Abs Auto 0.01 X10*3/uL (0.00-0.03); Imm Gran Pct Auto 0.2 % (0.0-0.4); Lymphocytes Percent Auto 21.4 % (20-40); Mean Corpuscular HGB Conc 35.7 g/dl (31.0-35.0); Mean Corpuscular Hemoglobin 31.5 pg (27.0-33.0); Mean Corpuscular Volume 88.2 fL (80.0-98.0); Monocytes Absolute Auto 0.4 X10*3/uL (0.1-1.2); Neutrophils Absolute Auto 3.2 x10*3/uL (2.0-8.3); Neutrophils Percent Auto 69.1 % (45-73); Platelet Count 182 X10*3/uL (160-400); Red Blood Count 4.16 X10*6/uL (4.20-5.50); Red Cell Distribution Width 13.1 % (11.0-16.0); White Blood Count 4.6 X10*3/uL (4.8-10.8)
[2024-01-30 11:05] LABS: Appearance Urine Clear; Color Urine Yellow; Glucose Urine UA Negative (Negative); Leukocyte Esterase Urine Negative (Negative); Nitrite Urine Negative (Negative); PH 6.5 (5.0-9.0); Urine Blood Negative (Negative); Urine Ketones Negative (Negative); Urine Protein Negative (Neg-Trace)
[2024-01-30] MEDS: 0.9 % Sodium Chloride 1,000 ML 999 ML IV (11:07)
[2024-01-30] MEDS: levETIRAcetam in NaCl (iso-os) 1,500 MG/100 ML PIGGYBACK 400 MG IV ×2 (11:12→11:13)
--- NOTE | 2024-01-30 11:13 | PC.NURSE ---
this nurse spoke with nurse Christina at [facility], sts that pt received hydroxizine IM for her seizure like activity. Nurse sts that little is known about pt as she is new to facility. Confirmed Keppra and Hydroxizine orders per JAN- pt has orders fot. Nurse also sts that they waited over an hour for EMS to arrive . MD Orellana notified.
[2024-01-30] MEDS: Etomidate 20 MG/10 ML VIAL 10 MG IVPUSH (11:27)
[2024-01-30] MEDS: Rocuronium Bromide 50 MG/5 ML VIAL 100 MG IVPUSH (11:27)
[2024-01-30 11:35] LABS: Alanine Aminotransferase 18 U/L (0-31); Albumin Level 4.2 g/dL (3.5-5.0); Alkaline Phosphatase 95 U/L (39-117); Anion Gap 14 (12-20); Aspartate Amino Transferase 19 U/L (5-31); Bilirubin Total 0.4 mg/dL (0.0-1.0); Blood Urea Nitrogen 13 mg/dL (9-16); Calcium 9.5 mg/dL (8.4-10.2); Carbon Dioxide 24 mmol/L (22-29); Chloride 107 mmol/L (96-108); Creatinine Clr Calc Pharmacy 130.2; Estimated Glomerular Filt Rate > 60; Glucose Random 92 mg/dL (60-115); Magnesium 1.8 mg/dL (1.6-2.6); Potassium 4.1 mmol/L (3.3-5.1); Sodium 141 mmol/L (135-145); Total Protein 7.2 g/dL (6.5-8.0)
[2024-01-30] MEDS: propofoL 1,000 MG/100 ML VIAL 12.25 MG IVCONT (11:44)
[2024-01-30 11:45] LABS: Influenza A PCR NEGATIVE (Negative); Influenza B PCR NEGATIVE (Negative); Resp Syncy Virus RNA Qual PCR NEGATIVE (Negative); SARS COV2 PCR INHOUSE NEGATIVE (Negative)
--- NOTE | 2024-01-30 11:59 | PC.NURSE ---
Arrived via EMS from [facility] in [place]. Per EMS/ transfer paperwork patient had been having seizure activity since 4:45am and was hypotensive. Upon arrival patient with seizure activity. Line placed in left foot by provider and ativan given with short effect. Given 10mg IM diazepam, x 3 doses of IV ativan and patient with continued seizure activity. Respiratory and provider at bedside to intubate. Intubation meds given per jan, intubated by provider 7.5 ET tube placed 25 at teeth, Patient with g tube, OG 18fr tube placed on low intermittent suction. Placement confirmed via chest x ray Propofol started per jan, 16fr 10cc temp sensing jin placed , with 350mls of clear urine output
[2024-01-30 12:04] LABS: Glucose, Whole Blood 98 mg/dL (60-115)
[2024-01-30 12:04] LABS: Glucose, Whole Blood 90 mg/dL (60-115)
[2024-01-30] MEDS: levETIRAcetam in NaCl (iso-os) 1,000 MG/100 ML PIGGYBACK 400 MG IV (12:16)
[2024-01-30 12:37] LABS: Lactic Acid 2.1 mmol/L (0.5-2.0)
[2024-01-30] MEDS: LORazepam 2 MG/ML VIAL 4 MG IVPUSH (12:44)
[2024-01-30] MEDS: fentaNYL citrate/PF 100 MCG/2 ML VIAL IVPUSH ×2 (12:53→13:33)
[2024-01-30] MEDS: Rocuronium Bromide 50 MG/5 ML VIAL 20 MG IVPUSH (12:59)
--- NOTE | 2024-01-30 13:00 | PC.NURSE ---
Propofol increased to max dose, patient rremains restless. Provider aware and at bedside, 100mg fentanyl given at 1253 ,20mg rocuronium given at 1259
--- NOTE | 2024-01-30 13:04 | PC.NURSE ---
Provider at bedside to place central line
--- NOTE | 2024-01-30 13:26 | PC.NURSE ---
Report given to EMS
--- NOTE | 2024-01-30 13:33 | PC.NURSE ---
While preparing for transport patient became restless, provider notified, 100mg on fentanyl given per mar
[2024-01-30] MEDS: Norepinephrine Bitartrate/D5W 8 MG/250 ML PLAST..BAG 6.38 MG IV (13:42)
--- NOTE | 2024-01-30 13:54 | PC.NURSE ---
Prior to transfer patient became hypotensive, provider aware, levo infusing per mar
[2024-01-30 13:58] LABS: Reflex Lactate? Lactic Acid Added
--- NOTE | 2024-01-30 14:10 | PC.NURSE ---
Report given to Kimberlee at [facility] , ems also aware to let ER know to fall father before any invasive procedures are done.
--- NOTE | 2024-01-30 14:20 | PC.NURSE ---
jin cath emptied for 1000mls of clear yellow urine
== END 2024-01-30 15:50 | disposition short-term general hospital (02) ==
PROVIDERS: Emergency Provider Student in an Organized Health Care Education/Training Program; PCP Hospitalist
DX: G40.901 Epilepsy, unspecified, not intractable, with status epilepticus (principal); R30.0 Dysuria; R32 Unspecified urinary incontinence; R00.0 Tachycardia, unspecified; R11.2 Nausea with vomiting, unspecified; Z11.52 Encounter for screening for COVID-19; Z20.822 Contact with and (suspected) exposure to COVID-19; Z87.820 Personal history of traumatic brain injury; Z79.899 Other long term (current) drug therapy
CPT/HCPCS: 0241U; 31500; 36415; 36556; 51701; 51702; 71045; 80053; 81003; 82947; 83605; 83735; 85025; 87040; 93005; 94002; 96361; 96365; 96366; 96367; 96372; 96375; 96376; 99285; J1953; J2060; J2250; J2704; J3010

== ENCOUNTER → 2024-01-30 10:15 | Outpatient (BNV) | payer OTHER, SELFPAY | PROVIDERS: Emergency Provider Student in an Organized Health Care Education/Training Program; PCP Hospitalist; Visit Provider Internal Medicine Cardiovascular Disease | DX: G40.909 Epilepsy, unspecified, not intractable, without status epilepticus (principal) | CPT/HCPCS: 93010 ==

== ENCOUNTER 2024-02-26 18:50 | Emergency (ER) | payer OTHER, SELFPAY ==
--- NOTE | ~2024-02-26 | CT_ITS ---
EXAMINATION: CT ABDOMEN AND PELVIS WITH CONTRAST CLINICAL INFORMATION: Right lower quadrant abdominal pain COMPARISON: None available. TECHNIQUE: Multidetector volumetric images were obtained from the superior aspect of the liver through the pubic symphysis following administration 85 mL of Omnipaque 350 intravenous contrast. Sagittal and coronal reformatted images were obtained on the technologist's workstation. Oral contrast: No This CT examination was performed using dose optimization techniques as appropriate, variously including the following: *Automated exposure control *Adjustment of mA and/or kV according to patient size (this includes techniques or standardized protocols for targeted exams where dose is matched to indication/reason for exam; i.e. extremities or head) *Use of iterative reconstruction technique DLP: 732 mGy-cm FINDINGS: LUNG BASES: The visualized lung bases are unremarkable. LIVER, GALLBLADDER, AND BILIARY TREE: The liver is normal in size, shape, and attenuation. No focal hepatic lesion or biliary ductal dilatation is present. The gallbladder is unremarkable with no evidence of radiopaque gallstones, gallbladder wall thickening, or obvious pericholecystic inflammatory changes. PANCREAS: Unremarkable. SPLEEN: Unremarkable. ADRENAL GLANDS: Unremarkable. KIDNEYS AND URETERS: The kidneys are normal in size, shape, and attenuation. No hydronephrosis, hydroureter, or calculi seen. No perinephric stranding. BLADDER: Unremarkable. GASTROINTESTINAL TRACT: Gastric jejunal feeding tube is is seen entering the stomach with the distal tip in the proximal jejunum. The small and large bowel are unremarkable. The appendix is unremarkable. ABDOMINAL WALL: No significant hernia is appreciated. LYMPH NODES: Normal. VASCULAR: Unremarkable. PELVIC VISCERA: Trace free fluid in the cul-de-sac which is likely physiologic in nature. Uterus and bilateral ovaries are unremarkable although there is an enhancing follicle in the right ovary which sometimes can indicate a ruptured cyst/follicle. OSSEOUS STRUCTURES: Unremarkable. CT/CT abdomen pelvis w IV con IMPRESSION: 1. No acute inflammatory or infectious process. Normal appendix. 2. Trace free fluid in the cul-de-sac which is likely physiologic in nature. There is an enhancing follicle in the right ovary which sometimes can indicate a ruptured cyst/follicle.
[2024-02-26 19:17] VITALS: BP 118/60; BP 120/71; PULSE 87; PULSE 96; RESP 16; TEMP 37.1; O2SAT 100; O2SAT 99; BMI 20.2
--- NOTE | 2024-02-26 19:49 | ECG_ITS ---
Test Reason : SEIZURE Blood Pressure : / mmHG Vent. Rate : 090 BPM Atrial Rate : 090 BPM P-R Int : 138 ms QRS Dur : 084 ms QT Int : 362 ms P-R-T Axes : 055 095 037 degrees QTc Int : 442 ms Normal sinus rhythm Rightward axis Borderline ECG When compared with ECG of 30-JAN-2024 10:44, No significant change was found Referred By: Rob Mathews Electronically Signed By:SANDRO WARREN MD
[2024-02-26 20:26] VITALS: BP 110/70; PULSE 92; RESP 16; TEMP 37.6; O2SAT 98
[2024-02-26 22:06] LABS: Basophils Percent Auto 0.4 % (0-2); Eosinophils Absolute Auto 0.1 X10*3/uL (0.0-0.4); Eosinophils Percent Auto 1.3 % (0-4); Hemoglobin 14.2 g/dl (12.0-16.0); Imm Gran Abs Auto 0.01 X10*3/uL (0.00-0.03); Imm Gran Pct Auto 0.2 % (0.0-0.4); Lymphocytes Absolute Auto 1.4 X10*3/uL (1.2-4.9); Lymphocytes Percent Auto 28.8 % (20-40); MANUAL DIFF FLAG NO; Mean Corpuscular HGB Conc 34.6 g/dl (31.0-35.0); Mean Corpuscular Hemoglobin 29.6 pg (27.0-33.0); Mean Corpuscular Volume 85.4 fL (80.0-98.0); Mean Platelet Volume 8.5 fL (9.4-12.3); Monocytes Absolute Auto 0.4 X10*3/uL (0.1-1.2); Monocytes Percent Auto 8.1 % (2-11); Neutrophils Absolute Auto 2.9 x10*3/uL (2.0-8.3); Neutrophils Percent Auto 61.2 % (45-73); Platelet Count 250 X10*3/uL (160-400); White Blood Count 4.7 X10*3/uL (4.8-10.8)
[2024-02-26 22:15] LABS: Lactic Acid 0.7 mmol/L (0.5-2.0)
[2024-02-26 22:29] LABS: Alanine Aminotransferase 22 U/L (0-31); Albumin Level 4.2 g/dL (3.5-5.0); Alkaline Phosphatase 95 U/L (39-117); Anion Gap 11 (12-20); Aspartate Amino Transferase 20 U/L (5-31); Bilirubin Total 0.6 mg/dL (0.0-1.0); Blood Urea Nitrogen 10 mg/dL (9-16); Calcium 9.4 mg/dL (8.4-10.2); Carbon Dioxide 24 mmol/L (22-29); Chloride 108 mmol/L (96-108); Creatinine Clr Calc Pharmacy 115.6; Estimated Glomerular Filt Rate > 60; Ethanol < 10 mg/dL; Glucose Random 89 mg/dL (60-115); HCG Quantitative < 2 mIU/mL; Lipase 22 U/L (8-78); Potassium 3.9 mmol/L (3.3-5.1); Sodium 139 mmol/L (135-145); Total Protein 7.6 g/dL (6.5-8.0)
[2024-02-26] MEDS: ondansetron HCL 4 MG/2 ML VIAL IVPUSH (22:36)
[2024-02-26] MEDS: HYDROmorphone HCl 1 MG/ML SYRINGE IVPUSH (22:36)
[2024-02-26] MEDS: 0.9 % Sodium Chloride 1,000 ML 999 ML IV (22:36)
--- NOTE | 2024-02-26 22:53 | ED_ITS ---
HPI - General Adult General Chief complaint: Seizure Stated complaint: 08/01 RLQ abd pain, seizure, lethargy Time Seen by Provider: 02/26/24 19:44 Source: patient, RN notes reviewed and old records reviewed Mode of arrival: EMS Limitations: no limitations History of Present Illness HPI narrative: 28-year-old female presents for evaluation of abdominal pain. Patient has a complex neuropsychiatric history She reports a history of seizure disorder. Per neurology note from December of this year, the patient does not have confirmed epilepsy and she was actually taken off all of her antiepileptic medications by Dr. Herrera. The patient states that she had abdominal pain starting yesterday. She states that she had a fall yesterday due to a seizure She is currently awake, alert and oriented The patient did have some convulsive episodes shortly after arrival that terminated without intervention. There was no postictal state The patient reports she has right lower abdominal pain that has been constant and severe She reports nausea without vomiting. Denies any diarrhea, black or bloody stool. Denies any urinary complaints Patient reports that she has a JG tube due to ?gastroparesis.' She reports that she is also able to take p.o. Related Data Home Medications ?Medication ?Instructions ?Recorded ?Confirmed acetaminophen 325 mg tablet 650 mg feeding tube Q6H PRN PAIN 01/04/24 01/04/24 OR FEVER albuterol sulfate 2.5 mg/3 mL 2.5 mg inhalation Q6H PRN Wheezing 01/04/24 01/04/24 (0.083 %) solution for nebulization aspirin 81 mg chewable tablet 81 mg feeding tube DAILY 01/04/24 01/04/24 budesonide 1 mg/2 mL suspension 0.5 mg inhalation BID 01/04/24 01/04/24 for nebulization clonazepam 0.5 mg tablet 1 mg feeding tube BID 01/04/24 01/04/24 ibuprofen 200 mg tablet 600 mg feeding tube Q8H PRN 01/04/24 01/04/24 Moderate Pain (Scale Score 5-6) lansoprazole 30 mg capsule,delayed 30 mg feeding tube DAILY 01/04/24 01/04/24 release morphine 10 mg/5 mL oral solution 10 mg feeding tube Q4H PRN Severe 01/04/24 01/04/24 Pain (Scale Score 7-10) promethazine 6.25 mg/5 mL oral 25 mg feeding tube Q6H PRN Nausea 01/04/24 01/04/24 syrup And Vomiting sennosides 8.6 mg tablet (senna) 8.6 mg feeding tube DAILY 01/04/24 01/04/24 tizanidine 4 mg capsule 8 mg feeding tube TID 01/04/24 01/04/24 zinc oxide 15 % topical cream 1 appl topical QSHIFT 01/04/24 01/04/24 Previous Rx's ?Medication ?Instructions ?Recorded lorazepam 1 mg tablet 1 mg PO BID PRN anxiety #20 tabs 01/11/24 Allergies Allergy/AdvReac Type Severity Reaction Status Date / Time aripiprazole Allergy Unknown Unknown Verified 02/26/24 19:23 bee venom protein (honey bee) Allergy Unknown Anaphylaxis Verified 02/26/24 19:23 latex Allergy Unknown Hives Verified 02/26/24 19:23 shellfish derived Allergy Unknown Anaphylaxis Verified 02/26/24 19:23 trimethoprim Allergy Unknown Unknown Verified 08/24/23 08:56 banana Allergy Anaphylaxis Verified 02/26/24 19:23 Sulfa (Sulfonamide Allergy Unknown Verified 02/26/24 19:23 Antibiotics) sulfamethoxazole Allergy Unknown Verified 02/26/24 19:23 [From Bactrim] Review of Systems 2 Constitutional: Constitutional: Denies body ache(s), Denies chills, Denies fever(s) and Denies headache(s) Eyes: Eyes: Denies blurry vision ENT: Denies headache(s) Cardiovascular: Cardiovascular: Denies chest pain and Denies dyspnea Respiratory: Respiratory: Denies cough and Denies dyspnea Gastrointestinal: Gastrointestinal: Reports abdominal pain, Denies hematochezia, Denies diarrhea, Denies loose stools, Reports nausea and Denies vomiting Musculoskeletal: Musculoskeletal: Denies back pain Integumentary/Breasts: Skin/Breast: Denies rash Neurologic: Denies headache(s), Reports convulsions and Reports seizure-like activity PMFSH Past Medical History Medical History 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 Nonepileptic attack disorder Seizure Anoxic encephalopathy Acute respiratory failure with hypoxemia Epileptic seizure Cystic fibrosis SVT (supraventricular tachycardia) Atrial fibrillation POTS (postural orthostatic tachycardia syndrome) Jackie-Danlos syndrome Anemia Lupus Refractory epilepsy Diabetic gastroparesis Social History Social History Household Members: Other Housing: Halfway Do you presently have visiting nurse or other home services: No (from ltc) Alcohol intake: never Comment: sitter Patient Tobacco Use Status: Never used Tobacco Smoked in Last 30 Days: No Use of substances other than those prescribed or required for medical reasons: No Advance Directives: No Advance Directives Information Provided: Yes Patient : No service: No Physical Exam ED Vital Signs: Vital Signs - 24 hr 02/26/24 19:17 02/26/24 20:26 02/26/24 23:51 Temperature 98.7 F 99.6 F 98.5 F Pulse Rate 96 92 63 Respiratory Rate 16 16 16 Blood Pressure 120/71 110/70 109/57 L Pulse Oximetry 99 98 97 Oxygen Delivery Method Room Air Room Air Room Air BMI result Body Mass Index 20.2 Const General: healthy appearing, comfortable, no acute distress, alert and awake Nutritional Appearance: well nourished Orientation/consciousness: patient oriented x3 HENMT Head: Yes normocephalic and Yes atraumatic Eyes Eyelids: Yes eyelids normal Conjunctivae: conjunctivae normal Sclerae: sclerae normal Corneas: corneas normal Pupils: Equal, round and reactive pupils present EOM: EOMs intact bilaterally Neck Neck: Yes full ROM Resp Effort & Inspection: normal respiratory effort, able to speak in complete sentences, no audible wheezes and not labored Auscultation: clear to auscultation bilaterally Cardio Rate: regular rate Rhythm: regular rhythm GI Inspection: No distended and Yes GJ-tube present Palpation (GI): Soft to palpation, not firm, Tenderness to palpation present (GI) in the RLQ, no guarding and not rigid Auscultation: normoactive bowel sounds Skin General skin exam: elasticity normal Neuro General: patient oriented x3 Cranial nerves: Yes CN's II-XII intact bilaterally, Yes Equal, round and reactive pupils present and Yes Bilaterally intact EOM present Cognition (Neuro): normal cognition Extrem Other: Moving all extremities well without any obvious deformities Medications Administered Discontinued Medications Generic Name Dose Route Start Last Admin Trade Name Freq PRN Reason Stop Dose Admin Hydromorphone HCl 1 mg 02/26/24 22:09 02/26/24 22:36 Hydromorphone Hcl 1 Mg/Ml Syringe IVPUSH 02/26/24 22:10 1 mg ONCE ONE Administration Protocol Sodium Chloride 1,000 mls @ 999 mls/hr 02/26/24 22:15 02/26/24 23:42 Ns IV 02/26/24 23:15 Infused .Q1H1M ZAMZAM Infusion Iohexol 85 ml 02/26/24 23:10 02/26/24 23:10 Iohexol 350 Mg/Ml 100 Ml Infus..Btl IV 02/26/24 23:11 85 ml ONCE ONE Administration Ondansetron HCl 4 mg 02/26/24 22:09 02/26/24 22:36 Ondansetron Hcl 4 Mg/2 Ml Vial IVPUSH 02/26/24 22:10 4 mg ONCE ONE Administration Medical Decision Making Medical Decision Making [facility] Narrative: 28-year-old female presents for evaluation of abdominal pain. She is tender in the right lower quadrant. She reports a history of volvulus requiring repair and G-tube placement. Plan for CT scan of the abdomen pelvis to evaluate for acute appendicitis. I have a low suspicion for obstruction as the patient continues to have bowel movements and pass gas. Patient's labs are significant for a mild leukopenia which is chronic for her white count is 4.7. She has no anemia. No left shift. No significant electrolyte abnormalities. The patient is not . She will be observed for any further seizure-like activity Differential Diagnosis Differential Diagnoses: The differential diagnosis associated with the presentation includes Abdominal pain Acute appendicitis Ovarian cyst Constipation Lab Data [facility] Lab Attestation statement: I reviewed the patient's lab results. See above 02/26/24 21:45 02/26/24 21:45 Labs: Lab Results 02/26/24 Range/Units 21:45 WBC 4.7 L (4.8-10.8) X10*3/uL RBC 4.80 (4.20-5.50) X10*6/uL Hgb 14.2 (12.0-16.0) g/dl Hct 41.0 (37.0-47.0) % MCV 85.4 (80.0-98.0) fL MCH 29.6 (27.0-33.0) pg MCHC 34.6 (31.0-35.0) g/dl RDW 12.0 (11.0-16.0) % Plt Count 250 D (160-400) X10*3/uL MPV 8.5 L (9.4-12.3) fL Immature Gran % (Auto) 0.2 (0.0-0.4) % Neut % (Auto) 61.2 (45-73) % Lymph % (Auto) 28.8 (20-40) % [place] % (Auto) 8.1 (2-11) % Eos % (Auto) 1.3 (0-4) % Baso % (Auto) 0.4 (0-2) % Lymph # (Auto) 1.4 (1.2-4.9) X10*3/uL [place] # (Auto) 0.4 (0.1-1.2) X10*3/uL Eos # (Auto) 0.1 (0.0-0.4) X10*3/uL Baso # (Auto) 0.0 (0.0-0.2) X10*3/uL Abs Immat Gran (auto) 0.01 (0.00-0.03) X10*3/uL Absolute Neuts (auto) 2.9 (2.0-8.3) x10*3/uL Absolute Nucleated RBC 0.000 (0.0-0.012) X10*3/uL Nucleated RBC % (auto) 0.0 (0.0-0.2) /100WBC Sodium 139 (135-145) mmol/L Potassium 3.9 (3.3-5.1) mmol/L Chloride 108 (96-108) mmol/L Carbon Dioxide 24 (22-29) mmol/L Anion Gap 11 L (12-20) BUN 10 (9-16) mg/dL Creatinine 0.66 (0.5-1.4) mg/dL Estim Creat Clear Calc 115.6 Estimated GFR > 60 Random Glucose 89 (60-115) mg/dL Lactic Acid 0.7 (0.5-2.0) mmol/L Calcium 9.4 (8.4-10.2) mg/dL Total Bilirubin 0.6 (0.0-1.0) mg/dL AST 20 (5-31) U/L ALT 22 (0-31) U/L Alkaline Phosphatase 95 (39-117) U/L Total Protein 7.6 (6.5-8.0) g/dL Albumin 4.2 (3.5-5.0) g/dL Lipase 22 (8-78) U/L Beta HCG, Quant < 2 mIU/mL Ethyl Alcohol < 10 mg/dL Independent Interpretation I performed an independent interpretation of an: CT Scan Interpretation: Agree with Radiology interpretation, Radiology Impression Discussion of test interpretation with radiology: I have reviewed the radiologist's reading. (No acute inflammatory or infectious process. Normal appendix. On) Radiologist Impression: 1. No acute inflammatory or infectious process. Normal appendix. 2. Trace free fluid in the cul-de-sac which is likely physiologic in nature. There is an enhancing follicle in the right ovary which sometimes can indicate a ruptured cyst/follicle. Discharge Plan Discharge Clinical Impression: Ovarian cyst rupture Patient Disposition: Home, Self-Care Instructions: Ovarian Cyst (ED) Additional Instructions: Your workup in the ER today was reassuring. Your CT scan showed that you may have a ruptured ovarian cyst which is likely the cause of your pain Your appendix is fine Prescriptions: No Action sennosides [senna] 8.6 mg Tablet 8.6 mg feeding tube DAILY acetaminophen 325 mg Tablet 650 mg feeding tube Q6H PRN (Reason: PAIN OR FEVER) albuterol sulfate 2.5 mg /3 mL (0.083 %) Solution For Nebulization 2.5 mg INHALATION Q6H PRN (Reason: Wheezing) promethazine 6.25 mg/5 mL Syrup 25 mg feeding tube Q6H PRN (Reason: Nausea And Vomiting) clonazepam 0.5 mg Tablet 1 mg feeding tube BID lansoprazole 30 mg Capsule,Delayed Release(Dr/Ec) 30 mg feeding tube DAILY ibuprofen 200 mg Tablet 600 mg feeding tube Q8H PRN (Reason: Moderate Pain (Scale Score 5-6)) morphine 10 mg/5 mL Solution 10 mg feeding tube Q4H PRN (Reason: Severe Pain (Scale Score 7-10)) aspirin 81 mg Tablet,Chewable 81 mg feeding tube DAILY tizanidine 4 mg Capsule 8 mg feeding tube TID budesonide 1 mg/2 mL Suspension For Nebulization 0.5 mg INHALATION BID zinc oxide 15 % Cream 1 appl TOPICAL QSHIFT Rx Instructions: APPLY TO J TUBE SITE lorazepam 1 mg Tablet 1 mg PO BID PRN (Reason: anxiety) Qty: 20 0RF Print Language: Mozambican
[2024-02-26] MEDS: iohexoL 350 MG/ML 100 ML INFUS..BTL 85 ML IV (23:10)
[2024-02-26 23:51] VITALS: BP 109/57; PULSE 63; RESP 16; TEMP 36.9; O2SAT 97
[2024-02-27 01:33] VITALS: BP 130/68; PULSE 72; RESP 16; TEMP 36.6; O2SAT 98
--- NOTE | 2024-02-27 01:40 | PC.NURSE ---
Report given to Elisha Nurse at [facility].
[2024-02-27 02:05] VITALS: BP 130/68; PULSE 72; RESP 16; TEMP 36.6; O2SAT 98
== END 2024-02-27 02:06 | disposition home or self-care (01) ==
PROVIDERS: Physician Assistant; Emergency Provider Emergency Medicine Emergency Medical Services
DX: N83.11 Corpus luteum cyst of right ovary (principal); R56.9 Unspecified convulsions; R94.31 Abnormal electrocardiogram [ECG] [EKG]; R11.0 Nausea; Z79.899 Other long term (current) drug therapy
CPT/HCPCS: 36415; 74177; 80053; 80307; 83605; 83690; 84702; 85025; 93005; 96361; 96374; 96375; 99285; J1170; J2405; Q9967

== ENCOUNTER → 2024-02-26 19:49 | Outpatient (BNV) | payer OTHER, SELFPAY | PROVIDERS: Emergency Provider Emergency Medicine Emergency Medical Services; Visit Provider Internal Medicine Cardiovascular Disease | DX: R56.9 Unspecified convulsions (principal) | CPT/HCPCS: 93010 ==

== ENCOUNTER 2024-03-13 14:38 | Emergency (ER) | payer OTHER, SELFPAY ==
[2024-03-13] VITALS (7 sets, daily range): BP systolic 104–130; BP diastolic 64–94; PULSE 84–133; RESP 16–19; TEMP 37.1–38.2; O2SAT 96–100; BMI 26.7
--- NOTE | ~2024-03-13 | XR_ITS ---
EXAMINATION: XR CHEST CLINICAL INFORMATION: Fever, rule out pneumonia COMPARISON: 01/30/2024 TECHNIQUE: Frontal view of the chest was obtained. FINDINGS: No significant abnormality is noted involving the heart, lungs, mediastinum, bony thorax or soft tissues. XR/XR chest 1V IMPRESSION: Unremarkable examination. No evidence of pneumonia
--- NOTE | 2024-03-13 14:42 | ECG_ITS ---
Test Reason : seizure Blood Pressure : / mmHG Vent. Rate : 084 BPM Atrial Rate : 084 BPM P-R Int : 138 ms QRS Dur : 084 ms QT Int : 352 ms P-R-T Axes : 061 097 066 degrees QTc Int : 415 ms Normal sinus rhythm Rightward axis Borderline ECG When compared with ECG of 26-FEB-2024 20:22, No significant change was found Referred By: Alia Vogt Electronically Signed By:SANDRO WARREN MD
[2024-03-13] MEDS: 0.9 % Sodium Chloride 1,000 ML 999 ML IVCONT (15:26)
--- NOTE | 2024-03-13 15:27 | ED_ITS ---
HPI - Seizure General Chief Complaint: Seizure Stated Complaint: 4 SZ TODAY,POST ICTAL, FROM [facility] PER EMS Time Seen by Provider: 03/13/24 14:42 Source: patient Mode of arrival: ambulatory Limitations: no limitations History of Present Illness HPI Narrative: Patient comes to the emergency room via ambulance from [facility]. According to the staff, patient had 1 witnessed seizure. Then, patient had more seizure-like activity in the ambulance on the way to the hospital, with the patient as given initially 1 mg IM of Ativan, and then she received for additional 4 mg IM Versed. Patient has history of TBI and non epileptic seizures. Seizure History: Yes Related Data Home Medications ?Medication ?Instructions ?Recorded ?Confirmed acetaminophen 325 mg tablet 650 mg feeding tube Q6H PRN PAIN 01/04/24 01/04/24 OR FEVER albuterol sulfate 2.5 mg/3 mL 2.5 mg inhalation Q6H PRN Wheezing 01/04/24 01/04/24 (0.083 %) solution for nebulization aspirin 81 mg chewable tablet 81 mg feeding tube DAILY 01/04/24 01/04/24 budesonide 1 mg/2 mL suspension 0.5 mg inhalation BID 01/04/24 01/04/24 for nebulization clonazepam 0.5 mg tablet 1 mg feeding tube BID 01/04/24 01/04/24 ibuprofen 200 mg tablet 600 mg feeding tube Q8H PRN 01/04/24 01/04/24 Moderate Pain (Scale Score 5-6) lansoprazole 30 mg capsule,delayed 30 mg feeding tube DAILY 01/04/24 01/04/24 release morphine 10 mg/5 mL oral solution 10 mg feeding tube Q4H PRN Severe 01/04/24 01/04/24 Pain (Scale Score 7-10) promethazine 6.25 mg/5 mL oral 25 mg feeding tube Q6H PRN Nausea 01/04/24 01/04/24 syrup And Vomiting sennosides 8.6 mg tablet (senna) 8.6 mg feeding tube DAILY 01/04/24 01/04/24 tizanidine 4 mg capsule 8 mg feeding tube TID 01/04/24 01/04/24 zinc oxide 15 % topical cream 1 appl topical QSHIFT 01/04/24 01/04/24 Previous Rx's ?Medication ?Instructions ?Recorded lorazepam 1 mg tablet 1 mg PO BID PRN anxiety #20 tabs 01/11/24 Allergies Allergy/AdvReac Type Severity Reaction Status Date / Time aripiprazole Allergy Unknown Unknown Verified 02/26/24 19:23 bee venom protein (honey bee) Allergy Unknown Anaphylaxis Verified 02/26/24 19:23 latex Allergy Unknown Hives Verified 02/26/24 19:23 shellfish derived Allergy Unknown Anaphylaxis Verified 02/26/24 19:23 trimethoprim Allergy Unknown Unknown Verified 08/24/23 08:56 banana Allergy Anaphylaxis Verified 02/26/24 19:23 seafood Allergy Unknown Verified 03/13/24 14:59 Sulfa (Sulfonamide Allergy Unknown Verified 02/26/24 19:23 Antibiotics) sulfamethoxazole Allergy Unknown Verified 02/26/24 19:23 [From Bactrim] Review of Systems 2 Review of Systems: Yes Unobtainable due to mental condition [facility] Past Medical History Medical History 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 Nonepileptic attack disorder Seizure Anoxic encephalopathy Acute respiratory failure with hypoxemia Epileptic seizure Cystic fibrosis SVT (supraventricular tachycardia) Atrial fibrillation POTS (postural orthostatic tachycardia syndrome) Jackie-Danlos syndrome Anemia Lupus Refractory epilepsy Diabetic gastroparesis Social History Social History Household Members: Other Housing: Long-Term Do you presently have visiting nurse or other home services: No (from ltc) Alcohol intake: never Comment: sitter Patient Tobacco Use Status: Never used Tobacco Smoked in Last 30 Days: No Use of substances other than those prescribed or required for medical reasons: No Advance Directives: Yes Advance Directives on File: Yes Advance Directives Date on File: 01/12/24 service: No Physical Exam 2 Vital Signs: Vital Signs: Last Vital Signs Temp 98.7 F 03/13/24 18:35 Pulse 88 03/13/24 17:55 Resp 19 03/13/24 17:55 BP 104/64 03/13/24 17:55 Pulse Ox 100 03/13/24 17:55 O2 Del Method Room Air 03/13/24 17:55 BMI result Body Mass Index 26.7 Const: Other: Appearance: Alert. Eyes: Pupils equal, round and reactive to light. ENT: Pharynx normal. Neck: Normal inspection. Neck supple. No lymph nodes noted. No crepitus CVS: Normal heart rate and rhythm. Pulses normal. Normal S1 and S2 Respiratory: No respiratory distress. Breath sounds normal. No Wheezing. No rales Abdomen: Soft and nontender. No rigidity. No distention. Skin: Skin warm and dry. Normal skin color. Normal skin turgor. Extremities: No lower extremity edema. No Lacerations. No Rash Neuro: Nonverbal, having tremor like activity in the face and all limbs. With normal telemetry and oxygen saturation Psych: calm, cooperative, normal affect Course Course Course Narrative: -when patient arrived to her room, patient started having seizure-like movements in upper and lower extremities and in her face, twitch like movements of her mouth. This tremor like activity, does not appear to be an epileptic seizure or a focal seizure. Patient brought with her as squish mellow toy with her. When the toy was returned to her, the seizure-like activity stopped. -I reviewed patient's past medical records, 2 months ago she was seen by Neurology for similar presentation. It was determined that she does not have epileptic seizures. Patient has had extensive workups in [place] and [facility] including EEGs, seizures have never been confirmed in any of her studies. In her last visit, Keppra, Depakote, phenytoin and baclofen were discontinued. -also, patient was seen by Psychiatry in her last visit, patient made several SI statements, said that she has several diseases including lupus, cystic fibrosis and intractable seizure disorder. Patient has been seen at multiple hospitals, none of them have confirm any of this diagnosis. Also, in her last visit patient made herself DNR DNI. Overall, patient was diagnosed with factitious disorder. After a thorough psychiatric evaluation in her previous visit, it was determined that patient's legs capacity to make informed medical decisions. Medications Administered Discontinued Medications Generic Name Dose Route Start Last Admin Trade Name Freq PRN Reason Stop Dose Admin Sodium Chloride 1,000 mls @ 999 mls/hr 03/13/24 14:42 03/13/24 18:09 Ns IVCONT 03/13/24 15:42 Infused .Q1H1M ONE Infusion Medical Decision Making Medical Decision Making MDM Narrative: -my interpretation of labs: Normal hematology and chemistry, normal urinalysis -my interpretation of chest x-ray: No abnormality. No infiltrate -patient's temperature normal, likely a defect in the thermometer that was originally used -patient has not had any seizures. Patient was not given any further medications and the above-mentioned. -seizures were likely pseudoseizures, lab results are not compatible with true tonic-clonic seizures Differential Diagnosis Differential Diagnoses: The differential diagnosis associated with the presentation includes (Psychogenic seizures, seizures) Lab Data MDM Lab Attestation statement: I reviewed the patient's lab results. 03/13/24 17:42 03/13/24 17:42 Labs: Lab Results 03/13/24 03/13/24 Range/Units 17:42 18:28 WBC 3.8 L (4.8-10.8) X10*3/uL RBC 3.97 L (4.20-5.50) X10*6/uL Hgb 12.1 (12.0-16.0) g/dl Hct 35.0 L (37.0-47.0) % MCV 88.2 (80.0-98.0) fL MCH 30.5 (27.0-33.0) pg MCHC 34.6 (31.0-35.0) g/dl RDW 12.2 (11.0-16.0) % Plt Count 170 D (160-400) X10*3/uL MPV 10.3 (9.4-12.3) fL Immature Gran % (Auto) 0.0 (0.0-0.4) % Neut % (Auto) 59.7 (45-73) % Lymph % (Auto) 30.2 (20-40) % [place] % (Auto) 7.7 (2-11) % Eos % (Auto) 1.9 (0-4) % Baso % (Auto) 0.5 (0-2) % Lymph # (Auto) 1.1 L (1.2-4.9) X10*3/uL [place] # (Auto) 0.3 (0.1-1.2) X10*3/uL Eos # (Auto) 0.1 (0.0-0.4) X10*3/uL Baso # (Auto) 0.0 (0.0-0.2) X10*3/uL Abs Immat Gran (auto) 0.00 (0.00-0.03) X10*3/uL Absolute Neuts (auto) 2.3 (2.0-8.3) x10*3/uL Absolute Nucleated RBC 0.000 (0.0-0.012) X10*3/uL Nucleated RBC % (auto) 0.0 (0.0-0.2) /100WBC Smear Tech's Comments VERIFIED PT 12.2 (11.1-13.3) SEC INR 1.0 (0.9-1.1) Sodium 140 (135-145) mmol/L Potassium 4.3 (3.3-5.1) mmol/L Chloride 112 H (96-108) mmol/L Carbon Dioxide 23 (22-29) mmol/L Anion Gap 9 L (12-20) BUN 14 (9-16) mg/dL Creatinine 0.69 (0.5-1.4) mg/dL Estim Creat Clear Calc 127.8 Estimated GFR > 60 Random Glucose 86 (60-115) mg/dL Lactic Acid 1.3 (0.5-2.0) mmol/L Calcium 8.8 D (8.4-10.2) mg/dL Magnesium 2.2 (1.6-2.6) mg/dL Total Bilirubin 0.3 (0.0-1.0) mg/dL Direct Bilirubin 0.1 (0.0-0.5) mg/dL AST 20 (5-31) U/L ALT 15 (0-31) U/L Alkaline Phosphatase 74 (39-117) U/L Troponin I High Sens < 2.7 (<3.5-17.0) ng/L Total Protein 6.9 (6.5-8.0) g/dL Albumin 3.9 (3.5-5.0) g/dL Urine Color Yellow Urine Appearance Clear Urine pH 6.0 (5.0-9.0) Ur Specific [place] 1.020 (1.005-1.025) Urine Protein Negative (Neg-Trace) mg/dL Urine Glucose (UA) Negative (Negative) mg/dL Urine Ketones Negative (Negative) mg/dL Urine Blood Negative (Negative) Urine Nitrite Negative (Negative) Ur Leukocyte Esterase Negative (Negative) Critical Care Time Critical Care Time Critical Care Time: Yes Total Critical Care Time: 45 Attestation: I have personally provided critical care time. Time includes review of lab data, radiology results, discussion with consultants, and monitoring for potential decompensation. Intervention performed as documented. Discharge Plan Discharge Clinical Impression: Psychogenic nonepileptic seizure Patient Disposition: Home, Self-Care Instructions: Conversion Disorder (ED) Additional Instructions: Please follow-up with your primary care physician tomorrow. If you have any worsening or new symptoms, please return to the emergency room or call 911 Prescriptions: No Action sennosides [senna] 8.6 mg Tablet 8.6 mg feeding tube DAILY acetaminophen 325 mg Tablet 650 mg feeding tube Q6H PRN (Reason: PAIN OR FEVER) albuterol sulfate 2.5 mg /3 mL (0.083 %) Solution For Nebulization 2.5 mg INHALATION Q6H PRN (Reason: Wheezing) promethazine 6.25 mg/5 mL Syrup 25 mg feeding tube Q6H PRN (Reason: Nausea And Vomiting) clonazepam 0.5 mg Tablet 1 mg feeding tube BID lansoprazole 30 mg Capsule,Delayed Release(Dr/Ec) 30 mg feeding tube DAILY ibuprofen 200 mg Tablet 600 mg feeding tube Q8H PRN (Reason: Moderate Pain (Scale Score 5-6)) morphine 10 mg/5 mL Solution 10 mg feeding tube Q4H PRN (Reason: Severe Pain (Scale Score 7-10)) aspirin 81 mg Tablet,Chewable 81 mg feeding tube DAILY tizanidine 4 mg Capsule 8 mg feeding tube TID budesonide 1 mg/2 mL Suspension For Nebulization 0.5 mg INHALATION BID zinc oxide 15 % Cream 1 appl TOPICAL QSHIFT Rx Instructions: APPLY TO J TUBE SITE lorazepam 1 mg Tablet 1 mg PO BID PRN (Reason: anxiety) Qty: 20 0RF Print Language: Kazakh
--- NOTE | 2024-03-13 17:19 | PC.NURSE ---
multiple attempts made to draw blood. #22 piv placed in L foot. phlebotomy contacted for blood draw
[2024-03-13 17:56] LABS: Prothrombin Time 12.2 SEC (11.1-13.3)
--- NOTE | 2024-03-13 17:56 | PC.NURSE ---
PT NOW A&OX4,RESPONDING TO QUESTIONS. ENDORSING ABD PAIN, HAS PRN DILAUDID AT [facility], REQUESTING THAT. VS WNL. IVF ALMOST INFUSED, PROVIDER MADE AWARE.
[2024-03-13 18:01] LABS: Lactic Acid 1.3 mmol/L (0.5-2.0)
[2024-03-13 18:10] LABS: Alanine Aminotransferase 15 U/L (0-31); Albumin Level 3.9 g/dL (3.5-5.0); Alkaline Phosphatase 74 U/L (39-117); Anion Gap 9 (12-20); Aspartate Amino Transferase 20 U/L (5-31); Bilirubin Direct 0.1 mg/dL (0.0-0.5); Bilirubin Total 0.3 mg/dL (0.0-1.0); Blood Urea Nitrogen 14 mg/dL (9-16); Calcium 8.8 mg/dL (8.4-10.2); Carbon Dioxide 23 mmol/L (22-29); Chloride 112 mmol/L (96-108); Creatinine Clr Calc Pharmacy 127.8; Estimated Glomerular Filt Rate > 60; Glucose Random 86 mg/dL (60-115); Magnesium 2.2 mg/dL (1.6-2.6); Potassium 4.3 mmol/L (3.3-5.1); Sodium 140 mmol/L (135-145); Total Protein 6.9 g/dL (6.5-8.0)
[2024-03-13 18:15] LABS: Troponin-I High Sensitivity < 2.7 ng/L (<3.5-17.0)
[2024-03-13 18:19] LABS: Basophils Percent Auto 0.5 % (0-2); Eosinophils Absolute Auto 0.1 X10*3/uL (0.0-0.4); Eosinophils Percent Auto 1.9 % (0-4); Hemoglobin 12.1 g/dl (12.0-16.0); Lymphocytes Absolute Auto 1.1 X10*3/uL (1.2-4.9); Lymphocytes Percent Auto 30.2 % (20-40); MANUAL DIFF FLAG SCAN; Mean Corpuscular HGB Conc 34.6 g/dl (31.0-35.0); Mean Corpuscular Hemoglobin 30.5 pg (27.0-33.0); Mean Corpuscular Volume 88.2 fL (80.0-98.0); Mean Platelet Volume 10.3 fL (9.4-12.3); Monocytes Absolute Auto 0.3 X10*3/uL (0.1-1.2); Monocytes Percent Auto 7.7 % (2-11); Neutrophils Absolute Auto 2.3 x10*3/uL (2.0-8.3); Neutrophils Percent Auto 59.7 % (45-73); PLT CLUMP 1; Red Blood Count 3.97 X10*6/uL (4.20-5.50); Red Cell Distribution Width 12.2 % (11.0-16.0); SCAN SMEAR FLAG 1
[2024-03-13 18:42] LABS: Appearance Urine Clear; Color Urine Yellow; Glucose Urine UA Negative (Negative); Leukocyte Esterase Urine Negative (Negative); Nitrite Urine Negative (Negative); Urine Blood Negative (Negative); Urine Ketones Negative (Negative); Urine Protein Negative (Neg-Trace)
[2024-03-13 18:46] LABS: Platelet Count 170 X10*3/uL (160-400); White Blood Count 3.8 X10*3/uL (4.8-10.8)
[2024-03-13 18:47] LABS: SLIDE REVIEW VERIFIED
--- NOTE | 2024-03-13 20:05 | PC.NURSE ---
PT ENDORSING DIFFUSE ABD PAIN, DEMANDING PRN DILAUDID. MD AWARE. TRANSPORT ARRANGED TO RETURN TO FACILITY.
[2024-03-13] MEDS: HYDROmorphone HCl 1 MG/ML SYRINGE IVPUSH (20:21)
== END 2024-03-13 21:39 ==
PROVIDERS: Emergency Provider Emergency Medicine
DX: R56.9 Unspecified convulsions (principal); I48.91 Unspecified atrial fibrillation
CPT/HCPCS: 36415; 71045; 80048; 80076; 81003; 83605; 83735; 84484; 85025; 85610; 93005; 96361; 96374; 99284; 99285; J1170

== ENCOUNTER → 2024-03-13 14:42 | Outpatient (BNV) | payer OTHER, SELFPAY | PROVIDERS: Emergency Provider Emergency Medicine; Visit Provider Internal Medicine Cardiovascular Disease | DX: R56.9 Unspecified convulsions (principal); I45.19 Other right bundle-branch block | CPT/HCPCS: 93010 ==

== ENCOUNTER 2024-03-24 21:37 | Emergency (ER) | payer OTHER, SELFPAY ==
--- NOTE | 2024-03-24 21:41 | ECG_ITS ---
Test Reason : SEIZURE Blood Pressure : / mmHG Vent. Rate : 104 BPM Atrial Rate : 104 BPM P-R Int : 138 ms QRS Dur : 084 ms QT Int : 342 ms P-R-T Axes : 057 104 019 degrees QTc Int : 449 ms Sinus tachycardia Rightward axis Borderline ECG When compared with ECG of 13-MAR-2024 15:18, No significant change was found Referred By: Alia Vogt Electronically Signed By:ABELARDO SILVERMAN
[2024-03-24 21:42] VITALS: BP 91/61; PULSE 136; PULSE 84; RESP 16; TEMP 36.7; O2SAT 97; BMI 30.3
--- NOTE | 2024-03-24 21:53 | ED_ITS ---
HPI - Seizure General Chief Complaint: Seizure Stated Complaint: MULTIPLE WITNISSED SEIZURES Time Seen by Provider: 03/24/24 21:38 Source: EMS Mode of arrival: EMS History of Present Illness HPI Narrative: Patient comes to the emergency room via ambulance from [facility]. Earlier today, according to the staff patient had 2 witnessed seizures, given 0.5 mg of Ativan IM. According to EMS, the patient called herself 911 telling them that she was having a seizure. Of note, patient has been evaluated multiple times by Neurology including [facility], [facility], and in [place]. Patient has had multiple EEGs none of them revealing seizures. Patient known to have psychogenic seizures a fictitious disorder, patient known to get upset if ativan is not given to her. Seizure History: Yes Related Data Home Medications ?Medication ?Instructions ?Recorded ?Confirmed acetaminophen 325 mg tablet 650 mg feeding tube Q6H PRN PAIN 01/04/24 01/04/24 OR FEVER albuterol sulfate 2.5 mg/3 mL 2.5 mg inhalation Q6H PRN Wheezing 01/04/24 01/04/24 (0.083 %) solution for nebulization aspirin 81 mg chewable tablet 81 mg feeding tube DAILY 01/04/24 01/04/24 budesonide 1 mg/2 mL suspension 0.5 mg inhalation BID 01/04/24 01/04/24 for nebulization clonazepam 0.5 mg tablet 1 mg feeding tube BID 01/04/24 01/04/24 ibuprofen 200 mg tablet 600 mg feeding tube Q8H PRN 01/04/24 01/04/24 Moderate Pain (Scale Score 5-6) lansoprazole 30 mg capsule,delayed 30 mg feeding tube DAILY 01/04/24 01/04/24 release morphine 10 mg/5 mL oral solution 10 mg feeding tube Q4H PRN Severe 01/04/24 01/04/24 Pain (Scale Score 7-10) promethazine 6.25 mg/5 mL oral 25 mg feeding tube Q6H PRN Nausea 01/04/24 01/04/24 syrup And Vomiting sennosides 8.6 mg tablet (senna) 8.6 mg feeding tube DAILY 01/04/24 01/04/24 tizanidine 4 mg capsule 8 mg feeding tube TID 01/04/24 01/04/24 zinc oxide 15 % topical cream 1 appl topical QSHIFT 01/04/24 01/04/24 Previous Rx's ?Medication ?Instructions ?Recorded lorazepam 1 mg tablet 1 mg PO BID PRN anxiety #20 tabs 01/11/24 Allergies Allergy/AdvReac Type Severity Reaction Status Date / Time aripiprazole Allergy Unknown Unknown Verified 03/24/24 21:45 bee venom protein (honey bee) Allergy Unknown Anaphylaxis Verified 03/24/24 21:45 latex Allergy Unknown Hives Verified 03/24/24 21:45 shellfish derived Allergy Unknown Anaphylaxis Verified 03/24/24 21:45 trimethoprim Allergy Unknown Unknown Verified 03/24/24 21:45 banana Allergy Anaphylaxis Verified 03/24/24 21:45 seafood Allergy Unknown Verified 03/24/24 21:45 Sulfa (Sulfonamide Allergy Unknown Verified 03/24/24 21:45 Antibiotics) sulfamethoxazole Allergy Unknown Verified 03/24/24 21:45 [From Bactrim] Review of Systems 2 Review of Systems: Yes Other (Patient is not verbal at this time.) [facility] Past Medical History Medical History 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 Nonepileptic attack disorder Seizure Anoxic encephalopathy Acute respiratory failure with hypoxemia Epileptic seizure Cystic fibrosis SVT (supraventricular tachycardia) Atrial fibrillation POTS (postural orthostatic tachycardia syndrome) Jackie-Danlos syndrome Anemia Lupus Refractory epilepsy Diabetic gastroparesis Social History Social History Household Members: Other Housing: Jail Do you presently have visiting nurse or other home services: No (from lt) Alcohol intake: never Comment: sitter Patient Tobacco Use Status: Never used Tobacco Advance Directives: Yes Advance Directives on File: Yes Advance Directives Date on File: 01/12/24 Do you have a plan to hurt others: No Plan service: No Physical Exam 2 Vital Signs: Vital Signs: Last Vital Signs Temp 98.3 F 03/24/24 22:23 Pulse 100 03/24/24 22:23 Resp 18 03/24/24 22:23 BP 121/68 03/24/24 22:23 Pulse Ox 98 03/24/24 22:23 O2 Del Method Room Air 03/24/24 22:23 BMI result Body Mass Index 30.3 Const: Other: Appearance: Alert. Patient having tonic-clonic movements he had following directions and answering questions yes/no Eyes: Pupils equal, round and reactive to light. ENT: Pharynx normal. Neck: Normal inspection. Neck supple. No lymph nodes noted. No crepitus CVS: Normal heart rate and rhythm. Pulses normal. Normal S1 and S2 Respiratory: No respiratory distress. Breath sounds normal. No Wheezing. No rales Abdomen: Soft and nontender. No rigidity. No distention. Skin: Skin warm and dry. Normal skin color. Normal skin turgor. Extremities: No lower extremity edema. No Lacerations. No Rash Neuro: Moving all extremities No slurred speech. CN 2 through 12 grossly intact Psych: calm Course Course Course Narrative: -all of patient's pending. Medical Decision Making Medical Decision Making [facility] Narrative: -my interpretation of labs: All of patient's labs at baseline. -since patient arrived in the ED, patient has not had any tonic-clonic like activity. -accessory above, patient has history of nonepileptic seizures, has had thorough workups with several neurologists in several hospitals. All negative -patient was on the monitor the whole time, normal vitals Differential Diagnosis Differential Diagnoses: The differential diagnosis associated with the presentation includes (Seizure, pseudo-seizure) Lab Data [facility] Lab Attestation statement: I reviewed the patient's lab results. 03/24/24 22:18 03/24/24 22:18 Labs: Lab Results 03/24/24 03/24/24 Range/Units 21:55 22:18 WBC 4.2 L (4.8-10.8) X10*3/uL RBC 4.56 (4.20-5.50) X10*6/uL Hgb 13.5 (12.0-16.0) g/dl Hct 39.0 (37.0-47.0) % MCV 85.5 (80.0-98.0) fL MCH 29.6 (27.0-33.0) pg MCHC 34.6 (31.0-35.0) g/dl RDW 11.9 (11.0-16.0) % Plt Count 234 D (160-400) X10*3/uL MPV 8.5 L (9.4-12.3) fL Immature Gran % (Auto) 0.0 (0.0-0.4) % Neut % (Auto) 54.8 (45-73) % Lymph % (Auto) 31.4 (20-40) % [place] % (Auto) 11.2 H (2-11) % Eos % (Auto) 2.4 (0-4) % Baso % (Auto) 0.2 (0-2) % Lymph # (Auto) 1.3 (1.2-4.9) X10*3/uL [place] # (Auto) 0.5 (0.1-1.2) X10*3/uL Eos # (Auto) 0.1 (0.0-0.4) X10*3/uL Baso # (Auto) 0.0 (0.0-0.2) X10*3/uL Abs Immat Gran (auto) 0.00 (0.00-0.03) X10*3/uL Absolute Neuts (auto) 2.3 (2.0-8.3) x10*3/uL Absolute Nucleated RBC 0.000 (0.0-0.012) X10*3/uL Nucleated RBC % (auto) 0.0 (0.0-0.2) /100WBC Sodium 140 (135-145) mmol/L Potassium 4.1 (3.3-5.1) mmol/L Chloride 108 (96-108) mmol/L Carbon Dioxide 20 L (22-29) mmol/L Anion Gap 16 (12-20) BUN 11 (9-16) mg/dL Creatinine 0.71 (0.5-1.4) mg/dL Estim Creat Clear Calc 118.4 Estimated GFR > 60 POC Glucose 93 (60-115) mg/dL Random Glucose 92 (60-115) mg/dL Lactic Acid 1.9 (0.5-2.0) mmol/L Calcium 10.3 H D (8.4-10.2) mg/dL Magnesium 1.8 (1.6-2.6) mg/dL Total Bilirubin 0.4 (0.0-1.0) mg/dL Direct Bilirubin 0.1 (0.0-0.5) mg/dL AST 20 (5-31) U/L ALT 18 (0-31) U/L Alkaline Phosphatase 90 (39-117) U/L Total Protein 7.9 (6.5-8.0) g/dL Albumin 4.4 (3.5-5.0) g/dL Critical Care Time Critical Care Time Critical Care Time: Yes Total Critical Care Time: 45 Attestation: I have personally provided critical care time. Time includes review of lab data, radiology results, discussion with consultants, and monitoring for potential decompensation. Intervention performed as documented. Discharge Plan Discharge Clinical Impression: Psychogenic nonepileptic seizure Patient Disposition: Home, Self-Care Instructions: Conversion Disorder (ED) Additional Instructions: Please follow-up with your primary care physician tomorrow. If you have any worsening or new symptoms, please return to the emergency room or call 911 Prescriptions: No Action sennosides [senna] 8.6 mg Tablet 8.6 mg feeding tube DAILY acetaminophen 325 mg Tablet 650 mg feeding tube Q6H PRN (Reason: PAIN OR FEVER) albuterol sulfate 2.5 mg /3 mL (0.083 %) Solution For Nebulization 2.5 mg INHALATION Q6H PRN (Reason: Wheezing) promethazine 6.25 mg/5 mL Syrup 25 mg feeding tube Q6H PRN (Reason: Nausea And Vomiting) clonazepam 0.5 mg Tablet 1 mg feeding tube BID lansoprazole 30 mg Capsule,Delayed Release(Dr/Ec) 30 mg feeding tube DAILY ibuprofen 200 mg Tablet 600 mg feeding tube Q8H PRN (Reason: Moderate Pain (Scale Score 5-6)) morphine 10 mg/5 mL Solution 10 mg feeding tube Q4H PRN (Reason: Severe Pain (Scale Score 7-10)) aspirin 81 mg Tablet,Chewable 81 mg feeding tube DAILY tizanidine 4 mg Capsule 8 mg feeding tube TID budesonide 1 mg/2 mL Suspension For Nebulization 0.5 mg INHALATION BID zinc oxide 15 % Cream 1 appl TOPICAL QSHIFT Rx Instructions: APPLY TO J TUBE SITE lorazepam 1 mg Tablet 1 mg PO BID PRN (Reason: anxiety) Qty: 20 0RF Print Language: Italian
[2024-03-24 22:00] LABS: Glucose, Whole Blood 93 mg/dL (60-115)
[2024-03-24 22:23] VITALS: BP 121/68; PULSE 100; RESP 18; TEMP 36.8; O2SAT 98
[2024-03-24 22:23] LABS: MANUAL DIFF FLAG NO
--- NOTE | 2024-03-24 22:24 | PC.NURSE ---
Delay in EKG, patient resisted EKG. Patient placed on scrubber system attendant, sinus tachy hr 80-128, BP 123/88, O2 Sat 98-99% RA. Labs drawn and sent to lab for processing. Seizure precautions on place.
[2024-03-24 22:26] LABS: Basophils Percent Auto 0.2 % (0-2); Eosinophils Absolute Auto 0.1 X10*3/uL (0.0-0.4); Eosinophils Percent Auto 2.4 % (0-4); Hemoglobin 13.5 g/dl (12.0-16.0); Lymphocytes Absolute Auto 1.3 X10*3/uL (1.2-4.9); Lymphocytes Percent Auto 31.4 % (20-40); Mean Corpuscular HGB Conc 34.6 g/dl (31.0-35.0); Mean Corpuscular Hemoglobin 29.6 pg (27.0-33.0); Mean Corpuscular Volume 85.5 fL (80.0-98.0); Mean Platelet Volume 8.5 fL (9.4-12.3); Monocytes Absolute Auto 0.5 X10*3/uL (0.1-1.2); Monocytes Percent Auto 11.2 % (2-11); Neutrophils Absolute Auto 2.3 x10*3/uL (2.0-8.3); Neutrophils Percent Auto 54.8 % (45-73); Platelet Count 234 X10*3/uL (160-400); Red Blood Count 4.56 X10*6/uL (4.20-5.50); Red Cell Distribution Width 11.9 % (11.0-16.0); White Blood Count 4.2 X10*3/uL (4.8-10.8)
[2024-03-24 22:37] LABS: Lactic Acid 1.9 mmol/L (0.5-2.0)
[2024-03-24 22:41] LABS: Alanine Aminotransferase 18 U/L (0-31); Albumin Level 4.4 g/dL (3.5-5.0); Alkaline Phosphatase 90 U/L (39-117); Anion Gap 16 (12-20); Aspartate Amino Transferase 20 U/L (5-31); Bilirubin Direct 0.1 mg/dL (0.0-0.5); Bilirubin Total 0.4 mg/dL (0.0-1.0); Blood Urea Nitrogen 11 mg/dL (9-16); Calcium 10.3 mg/dL (8.4-10.2); Carbon Dioxide 20 mmol/L (22-29); Chloride 108 mmol/L (96-108); Creatinine Clr Calc Pharmacy 118.4; Estimated Glomerular Filt Rate > 60; Glucose Random 92 mg/dL (60-115); Magnesium 1.8 mg/dL (1.6-2.6); Potassium 4.1 mmol/L (3.3-5.1); Sodium 140 mmol/L (135-145); Total Protein 7.9 g/dL (6.5-8.0)
[2024-03-25 00:23] VITALS: BP 104/67; PULSE 87; RESP 16; TEMP 36.6; O2SAT 99
--- NOTE | 2024-03-25 00:24 | PC.NURSE ---
This RN attempted to call nurse to nurse report to [facility], no answer to phone calls.
== END 2024-03-25 00:25 | disposition home or self-care (01) ==
PROVIDERS: Emergency Provider Emergency Medicine; PCP Hospitalist
DX: R56.9 Unspecified convulsions (principal)
CPT/HCPCS: 36415; 80048; 80076; 82947; 83605; 83735; 85025; 93005; 99283; 99284

== ENCOUNTER → 2024-03-24 21:41 | Outpatient (BNV) | payer OTHER, SELFPAY | PROVIDERS: Emergency Provider Emergency Medicine; PCP Hospitalist; Visit Provider Internal Medicine | DX: R00.0 Tachycardia, unspecified (principal); R94.31 Abnormal electrocardiogram [ECG] [EKG] | CPT/HCPCS: 93010 ==